=== PATIENT | female | born 1945 | race Caucasian/White ===

== ENCOUNTER → 2020-07-27 10:31 | Outpatient (BNVA) | payer MEDICARE, BC, SELFPAY | PROVIDERS: PCP Family Medicine; Visit Provider Internal Medicine Cardiovascular Disease | DX: I50.9 Heart failure, unspecified (principal); I42.9 Cardiomyopathy, unspecified; I25.10 Atherosclerotic heart disease of native coronary artery without angina pectoris; I77.1 Stricture of artery; Z95.810 Presence of automatic (implantable) cardiac defibrillator | CPT/HCPCS: 93005; 99212 ==

== ENCOUNTER → 2020-10-27 10:31 | Outpatient (BNVA) | payer MEDICARE, BC, SELFPAY | PROVIDERS: PCP Family Medicine; Visit Provider Internal Medicine Cardiovascular Disease | DX: R06.00 Dyspnea, unspecified (principal); I25.10 Atherosclerotic heart disease of native coronary artery without angina pectoris; I50.9 Heart failure, unspecified; Z79.899 Other long term (current) drug therapy | CPT/HCPCS: 99212 ==

== ENCOUNTER → 2021-02-16 12:37 | Outpatient (BNVA) | payer MEDICARE, BC, SELFPAY | PROVIDERS: PCP Family Medicine; Referring Provider Family Medicine; Visit Provider Internal Medicine Cardiovascular Disease | DX: I25.10 Atherosclerotic heart disease of native coronary artery without angina pectoris (principal); R06.00 Dyspnea, unspecified | CPT/HCPCS: 93005; 99212 ==

== ENCOUNTER → 2021-07-03 10:33 | Outpatient (BNVA) | payer MEDICARE, BC, SELFPAY | PROVIDERS: PCP Family Medicine; Referring Provider Family Medicine; Visit Provider Internal Medicine Cardiovascular Disease | DX: R06.00 Dyspnea, unspecified (principal) | CPT/HCPCS: 99212 ==

== ENCOUNTER → 2021-09-27 14:39 | Outpatient (REF) | payer MEDICARE, BC, SELFPAY ==
--- NOTE | 2021-09-27 15:16 | CA_ITS ---
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 The calculated ejection fraction is 59% by biplane method. - There is moderate calcification of the aortic valve. There is mild aortic valve regurgitation. - There is moderate mitral annular calcification. There is mild to moderate mitral valve regurgitation. - Mild pulmonary hypertension is present. Findings Left Ventricle Normal left ventricular cavity size. There is normal left ventricular wall thickness. The left ventricular systolic function is normal. The calculated ejection fraction is 59% by biplane method. There is no evidence of regional wall motion abnormalities. Diastolic function is indeterminate on the basis of available data. Right Ventricle Normal right ventricular cavity size and systolic function. There is a pacemaker wire seen in the right ventricle. Atria Both atria are normal in size. Aortic Valve There is moderate calcification of the aortic valve. There is no aortic valve stenosis. There is mild aortic valve regurgitation. Mitral Valve There is moderate mitral annular calcification. There is mild to moderate mitral valve regurgitation. There is no mitral valve stenosis. Pulmonic Valve The pulmonic valve was not well visualized. Tricuspid Valve There is mild tricuspid valve regurgitation. The right ventricular systolic pressure is 42 mmHg. Mild pulmonary hypertension is present. Great Vessels The asc aorta is normal in size. Venous The inferior vena cava is normal in size and collapses greater than 50% with inspiration. Pericardium/Pleural There is no evidence of pericardial effusion. Prior Study Comparison No prior study available for comparison. Measurements 2D Linear Measurements IVSd: 0.99 0.6-0.9/0.6-1.0 cm LVIDd: 3.55 3.9-5.3/4.2-5.9 cm LVIDd Index: 2.57 2.4-3.2/2.2-3.1 cm/m2 LVIDs: 2.35 2.0-3.6 cm LVPWd: 1.05 0.7-1.1 cm LA Diam: 3.00 2.7-3.8/3.0-4.0 cm LAIDs Index: 2.17 1.5-2.3 cm/m2 LV Mass: 134.84 67-162/88-224 g LV Mass Index: 97.71 43-95/49-115 g/m2 LVOT Diam: 1.80 3.0+(-)1.3 cm 2D Systolic Function EF 4C: 60.20 >55% EF 2C: 60.10 >55% EF BiP: 59.20 >55% Mitral Valve E'Lateral: 5.87 E'Medial: 4.90 MR Vol - PW Dopp: 31.85 MR VTI: 2.45 MR ERO: 13.00 MR Alias Osvaldo: 0.38 MR RAD: 0.60 Aortic Valve AoV Pk Osvaldo: 1.05 AoV Mn Osvaldo: 0.72 AoV VTI: 0.22 AoV Pk Grad: 4.00 Aov Mn Grad: 2.00 CLINT Cont.VTI: 2.64 AI Pk Osvaldo: 3.98 AI [place]: 5.67 LVOT LVOT Pk Osvaldo: 1.00 LVOT Mn Osvaldo: 0.62 LVOT VTI: 0.23 LVOT Pk Grad: 4.00 LVOT Mn Grad: 2.00 LVOT Diam: 1.80 LVOT Area: 2.54 Diastolic Function E'Medial: 4.90 E' Laterial: 5.87 Right Ventricle TAPSE (mm): 18.60 Tricuspid Valve TR Pk Osvaldo: 3.11 TR Pk Grad: 39.00 RA Press: 3.00 RVSP: 42.00 Great Vessels Aorta Sinus of Valsalva: 3.10 2.0-3.[address] [place]: 2.48 1.7-3.4 cm Ao Asc: 3.40 2.1-3.4 cm Updated in Other Vendor System with Status of Final Terry Mcclain MD electronically signed on 09/29/2021 11:18:34 AM with status of Final
== END ==
LOC: HO.CARD 14:39
PROVIDERS: PCP Family Medicine; Visit Provider Family Medicine
DX: R06.09 Other forms of dyspnea (principal)
CPT/HCPCS: 93306

== ENCOUNTER → 2022-01-19 12:51 | Outpatient (BNVA) | payer MEDICARE, BC, SELFPAY | PROVIDERS: PCP Family Medicine; Referring Provider Family Medicine; Visit Provider Nurse Practitioner Family | DX: Z45.02 Encounter for adjustment and management of automatic implantable cardiac defibrillator (principal); I25.10 Atherosclerotic heart disease of native coronary artery without angina pectoris; I42.9 Cardiomyopathy, unspecified; I50.9 Heart failure, unspecified; I77.1 Stricture of artery | CPT/HCPCS: 93005; 99212 ==

== ENCOUNTER 2022-06-21 14:46 | Outpatient (REF) | payer MEDICARE, BC, SELFPAY ==
--- NOTE | ~2022-06-21 | XR_ITS ---
EXAMINATION: XR CHEST CLINICAL INFORMATION: R06.00 - Dyspnea, unspecified COMPARISON: None TECHNIQUE: Frontal view of the chest was obtained. FINDINGS: There is hyperinflation/COPD. The heart is normal in size. The vascularity is normal and there is no airspace consolidation or effusion. There is bipolar AICD and 2 orphaned epicardial leads. There is dystrophic calcification or artifact just inferior to mid right clavicle. The hilar and mediastinal contours are unremarkable. There are multilevel degenerative changes thoracic and lumbar spine. XR/XR chest 1V IMPRESSION: 1. Hyperinflation/COPD. 2. No acute intrathoracic disease.
[2022-06-21 15:16] LABS: MANUAL DIFF FLAG NO
[2022-06-21 16:22] LABS: Basophils Absolute Auto 0.1 X10*3/uL (0.0-0.2); Basophils Percent Auto 0.8 % (0-2); Eosinophils Absolute Auto 0.3 X10*3/uL (0.0-0.4); Eosinophils Percent Auto 3.1 % (0-4); Hematocrit 42.7 % (37.0-47.0); Hemoglobin 14.9 g/dl (12.0-16.0); Imm Gran Abs Auto 0.03 X10*3/uL (0.00-0.03); Imm Gran Pct Auto 0.3 % (0.0-0.4); Lymphocytes Absolute Auto 2.5 X10*3/uL (1.2-4.9); Lymphocytes Percent Auto 27.5 % (20-40); Mean Corpuscular HGB Conc 34.9 g/dl (31.0-35.0); Mean Corpuscular Hemoglobin 33.3 pg (27.0-33.0); Mean Corpuscular Volume 95.5 fL (80.0-98.0); Mean Platelet Volume 9.9 fL (9.4-12.3); Monocytes Absolute Auto 0.7 X10*3/uL (0.1-1.2); Monocytes Percent Auto 8.3 % (2-11); Neutrophils Absolute Auto 5.4 x10*3/uL (2.0-8.3); Platelet Count 311 X10*3/uL (160-400); Red Blood Count 4.47 X10*6/uL (4.20-5.50)
[2022-06-21 16:42] LABS: Anion Gap 13 (12-20); Blood Urea Nitrogen 17 mg/dL (9-16); Calcium 10.5 mg/dL (8.4-10.2); Carbon Dioxide 33 mmol/L (22-29); Chloride 98 mmol/L (96-108); Estimated Glomerular Filt Rate > 60; Glucose Random 89 mg/dL (60-115); Potassium 4.8 mmol/L (3.3-5.1); Sodium 139 mmol/L (135-145)
[2022-06-21 16:50] LABS: B Type Natriuretic Peptide 338 pg/mL (<100)
== END 2022-06-21 14:47 | disposition home or self-care (01) ==
LOC: HO.LAB 14:46
PROVIDERS: Visit Provider Nurse Practitioner Family
DX: R06.00 Dyspnea, unspecified (principal); R60.9 Edema, unspecified; I25.10 Atherosclerotic heart disease of native coronary artery without angina pectoris; I42.9 Cardiomyopathy, unspecified; I77.1 Stricture of artery; Z95.810 Presence of automatic (implantable) cardiac defibrillator
CPT/HCPCS: 36415; 71045; 80048; 83880; 85025; 99212

== ENCOUNTER → 2022-07-25 14:32 | Outpatient (BNVA) | payer MEDICARE, BC, SELFPAY | PROVIDERS: PCP Family Medicine; Visit Provider Internal Medicine Cardiovascular Disease | DX: R06.00 Dyspnea, unspecified (principal); I10 Essential (primary) hypertension | CPT/HCPCS: 99212 ==

== ENCOUNTER 2022-08-20 10:36 | Outpatient (REF) | payer MEDICARE, BC, SELFPAY ==
[2022-08-20 12:32] LABS: Anion Gap 16 (12-20); Blood Urea Nitrogen 13 mg/dL (9-16); Calcium 10.5 mg/dL (8.4-10.2); Carbon Dioxide 29 mmol/L (22-29); Chloride 97 mmol/L (96-108); Estimated Glomerular Filt Rate > 60; Glucose Random 92 mg/dL (60-115); Magnesium 1.7 mg/dL (1.6-2.6); Potassium 4.8 mmol/L (3.3-5.1); Sodium 137 mmol/L (135-145)
== END 2022-08-20 10:37 | disposition home or self-care (01) ==
LOC: HO.LAB 10:36
PROVIDERS: PCP Family Medicine; Referring Provider Family Medicine; Visit Provider Internal Medicine Cardiovascular Disease
DX: I49.3 Ventricular premature depolarization (principal)
CPT/HCPCS: 36415; 80048; 83735; 93005; 99212

== ENCOUNTER → 2022-12-24 12:57 | Outpatient (BNVA) | payer MEDICARE, BC, SELFPAY | PROVIDERS: PCP Family Medicine; Referring Provider Family Medicine; Visit Provider Internal Medicine Cardiovascular Disease | DX: I10 Essential (primary) hypertension (principal); R06.00 Dyspnea, unspecified; I42.8 Other cardiomyopathies; Z87.891 Personal history of nicotine dependence | CPT/HCPCS: 99212 ==

== ENCOUNTER 2023-01-24 06:10 | Day surgery (SDC) | payer MEDICARE, BC, SELFPAY ==
[2023-01-22 10:20] VITALS: BMI 14.6
[2023-01-24] MEDS: Albuterol Sulfate (0.083%) 2.5 MG/3 ML VIAL.NEB INHALE (06:35)
[2023-01-24 06:41] VITALS: BP 158/89; PULSE 88; RESP 18; TEMP 36.7; O2SAT 95
[2023-01-24] MEDS: Lactated Ringers 1,000 ML 50 ML IVCONT (06:51)
--- NOTE | 2023-01-24 07:12 | P.CONAN_ITS ---
HPI - Anesthesia Eval Consult details Narrative: 77 yo F presenting for AICD generator change. Uses supplmental oxygen at night. Received inhalers this morning in pre-op. [facility] Active Problems Active Problems: All Active Problems (Updated 01/21/23 @ 15:41 by Luz Elena Cabral PA-C) Cardiomyopathy (Acute) CHF (congestive heart failure) (Acute) CAD (coronary artery disease) (Acute) PVC (premature ventricular contraction) (Acute) Essential hypertension (Acute) ICD (implantable cardioverter-defibrillator) in place (Acute) Stenosis of left subclavian artery (Acute) Edema (Acute) Dyspnea on exertion (Acute) Personal history of nicotine dependence (Acute) Past Medical History Medical History CAD (coronary artery disease) Cardiomyopathy CHF (congestive heart failure) Essential hypertension Hyperlipidemia Hypothyroidism ICD (implantable cardioverter-defibrillator) in place Personal history of nicotine dependence PVC (premature ventricular contraction) Family History Family History Father CVD (cardiovascular disease) Obesity Mother CVD (cardiovascular disease) Diabetes Surgical History Surgical History History of appendectomy History of carotid endarterectomy History of heart artery stent History of hernia repair History of implantable cardiac defibrillator (ICD) History of pubovaginal sling History of tonsillectomy History of Problems with Anesthesia: No Social History Social History Alcohol intake: current Alcohol intake frequency: 0-2 drinks per day Alcohol type: wine Patient Tobacco Use Status: Former Tobacco user Quit Date: 2014 Tobacco use type: Cigarette Years Smoked: 50 +/- Use of substances other than those prescribed or required for medical reasons: No Are you DNR?: No Advance Directives: No Advance Directives Information Provided: Yes Advance Directives on File: No Meds Allergies Allergy/AdvReac Type Severity Reaction Status Date / Time No Known Allergies Allergy Verified 12/24/22 13:09 Active Medications: Current Medications Albuterol Sulfate (Albuterol Sulfate (0.083%) 2.5 Mg/3 Ml Vial.Neb) 2.5 mg INHALE ONCE PRN PRN Reason: Shortness of Breath/Wheezing Last Admin: 01/24/23 06:35 Dose: 2.5 mg Lactated Ringer's (Lr) 1,000 mls @ 50 mls/hr IVCONT .Q20H DIONNE Last Admin: 01/24/23 06:51 Dose: 50 mls/hr Home Medications Medication Instructions Recorded Confirmed Last Taken Type aspirin 81 mg tablet,delayed 81 mg PO DAILY 07/27/20 01/24/23 01/23/23 History release (Adult Low Dose Aspirin) calcium carbonate 600 mg calcium 600 mg PO DAILY 07/27/20 01/24/23 01/23/23 History (1,500 mg) tablet (Calcium) carvedilol 6.25 mg tablet 6.25 mg PO BID 07/27/20 01/24/23 01/24/23 History fluticasone propionate 50 1 spray intranasal DAILY 07/27/20 01/24/23 01/23/23 History mcg/actuation nasal spray,suspension furosemide 20 mg tablet 20 mg PO DAILY 07/27/20 01/24/23 01/23/23 History losartan 50 mg tablet 50 mg PO DAILY 07/27/20 01/24/23 01/23/23 History multivitamin 1 tab PO DAILY 07/27/20 01/24/23 01/23/23 History tiotropium 2.5 mcg-olodaterol 2.5 2 puff inhalation DAILY 02/16/21 01/24/23 01/24/23 History mcg/actuation mist for inhalation (Stiolto Respimat) atorvastatin 40 mg tablet 40 mg PO DAILY 01/19/22 01/24/23 01/23/23 History albuterol sulfate 2.5 mg/3 mL 2.5 mg inhalation Q4-6H PRN 07/25/22 01/24/23 01/23/23 History (0.083 %) solution for nebulization Shortness Of Breath albuterol sulfate 90 mcg/actuation 1 puff inhalation Q4H PRN 08/20/22 01/24/23 01/23/23 History aerosol inhaler Shortness Of Breath levothyroxine 100 mcg tablet 100 mcg PO DAILY 12/24/22 01/24/23 01/24/23 History Exam Exam Date and Time: January 24, [id number] Height,Weight and Vital Signs: Height 5 ft 3 in Weight 37.4 kg Last Vital Signs Temp 98.1 F 01/24/23 06:41 Pulse 88 01/24/23 06:41 Resp 18 01/24/23 06:41 BP 158/89 H 01/24/23 06:41 Pulse Ox 95 01/24/23 06:41 O2 Del Method Room Air 01/24/23 06:41 Airway Mallampati Class: I TM Dist: >3cm Neck ROM: Full Loose/Missing/Broken Teeth: No Heart: S1S2 Lungs: CTAB Assessment and Plan Assessment Anesthesia Assessment: Anesthesia Plan Discussed and Chart Reviewed Final Anesthetic Review History of Problems with Anesthesia: No NPO: Yes ASA Class: III Final Preanesthetic Review: No Changes in Pt Med Stat, Meds/Allgs Chart Reviewed, Consent Obtained/Reviewed and Anes Risks/Benef Reviewed Patient Risk: High Procedure Risk: Intermediate Anesthetic Plan Anesthetic Plan: MAC: and Agree w/ Assess. and Plan Disposition: Standard PACU
--- NOTE | 2023-01-24 07:24 | MHC.SHP ---
Pre-Procedural Eval Section A Date of Service: 01/24/23 The patient is an INPATIENT: No Section B Chief Complaint: Ventricular premature depolarization Allergies: Allergies Allergy/AdvReac Type Severity Reaction Status Date / Time No Known Allergies Allergy Verified 12/24/22 13:09 Plan I have reviewed the history and physical and performed a pertinent physical examination on my patient. No changes have occurred unless specified. Time Spent With Patient Time: Total time managing care of this patient today ____ minutes.
--- NOTE | 2023-01-24 08:35 | P.OP_ITS ---
Operative Note Operative Note Date of Service: 01/24/23 Narrative: Preoperative diagnosis: Pacemaker/ to fibrillator end of life Postoperative diagnosis: Same Operation: Three-chamber pacemaker /defibrillator generator change Surgeon: Felton Alva MD Anesthesia: Local with sedation Specimens: None EBL: Minimal Operative findings: The generator were removed was a Medtronic with serial number [id number]. Pacemaker lead parameters were in the atrial lead threshold 0.75 volts at 0.4 milliseconds with an impedance of 361 Ohms and a P- wave of 4.5 mV. In the rightventricular lead threshold 0.75 volts at 0.4 milliseconds with an impedance of 437 Ohms and an R-wave of 14.6 mV. epicardial left ventricular lead threshold 1.25 volts at 0.4 milliseconds with an impedance of 285 Ohms. This is an epicardial lead. Patient tolerated the procedure well. Operation in detail: The patient was brought the operating room, placed supine on the operative table, anesthesia monitoring devices were placed, and the patient was gently sedated. The left infraclavicular area was then prepped and draped in a standard sterile fashion and a time-out was performed confirming the correct patient, site, and procedure. After injection of local anesthetic, a 3 cm incision was made directly over the old pacemaker generator which was palpable. This was carried down with combination of sharp dissection and minimal electrocautery to open up the capsule at the generator was within. The generator was were then removed from its pocket and the leads were taken out of the receptacles and placed directly into the new generator. These leads were then tested and were working appr opriately. The pocket was then copiously irrigated with antibiotic solution and the excess wire and generator were then placed back into the pocket. The wound was then closed with a deep running 3-0 Vicryl suture followed by running 3-0 Vicryl suture and Dermabond glue on the skin. Patient tolerated the procedure well. Patient was then awoken from anesthesia and brought to the recovery room in stable condition.
[2023-01-24 08:40] VITALS: BP 125/51; PULSE 73; RESP 20; TEMP 36.2; O2SAT 100
[2023-01-24 08:55] VITALS: BP 173/73; PULSE 79; RESP 18; O2SAT 94
[2023-01-24 09:10] VITALS: BP 173/74; PULSE 76; RESP 18; TEMP 36.1; O2SAT 94
== END 2023-01-24 09:48 | disposition home or self-care (01) ==
PROVIDERS: PCP Family Medicine; Visit Provider Surgery
PROC: (CPT 33264; principal; 2023-01-24 07:30)
DX: Z45.02 Encounter for adjustment and management of automatic implantable cardiac defibrillator (principal); I49.3 Ventricular premature depolarization; I42.9 Cardiomyopathy, unspecified; I50.9 Heart failure, unspecified; I11.0 Hypertensive heart disease with heart failure; R06.00 Dyspnea, unspecified; I25.10 Atherosclerotic heart disease of native coronary artery without angina pectoris; Z95.5 Presence of coronary angioplasty implant and graft; E78.5 Hyperlipidemia, unspecified; Z99.81 Dependence on supplemental oxygen; Z79.51 Long term (current) use of inhaled steroids; Z79.82 Long term (current) use of aspirin; Z79.899 Other long term (current) drug therapy; Z87.891 Personal history of nicotine dependence
CPT/HCPCS: 33264; C1882; J0690; J2370; J2371; J3010; J3370

== ENCOUNTER 2023-02-15 08:47 | Outpatient (AMB) | payer MEDICARE, BC, SELFPAY ==
--- NOTE | 2023-02-15 09:15 | A.OFFVIS_ITS ---
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: No Allergies No Known Allergies Allergy (Verified 02/15/23 09:19) Medication List - Last Reconciled 02/15/23 by Felton Alva MD albuterol sulfate 2.5 mg inhalation Q4-6H PRN albuterol sulfate 90 mcg/actuation 1 puff inhalation Q4H PRN aspirin (Adult Low Dose Aspirin) 81 mg PO DAILY atorvastatin 40 mg PO DAILY calcium carbonate (Calcium) 600 mg PO DAILY carvedilol 6.25 mg PO BID fluticasone propionate 50 mcg/actuation 1 spray intranasal DAILY furosemide 20 mg PO DAILY isosorbide mononitrate ER 30 mg PO DAILY levothyroxine 100 mcg PO DAILY losartan 50 mg PO DAILY multivitamin 1 tab PO DAILY tiotropium-olodaterol 2.5-2.5 mcg/actuation (Stiolto Respimat) 2 puffs inhalation DAILY HPI Generator change HPI Details 77-year-old woman who had a pacemaker defibrillator generator change done on 01/24/2023. She did notice some drainage from the wound about a week ago and saw 1 of my PAs at the [facility] office started a course of antibiotics for some mild erythema around it and some mild drainage. Steri-Strips were placed at that time. She is quite thin and the generator is large as it is a defibrillator as well. Since starting antibiotics and seeing my PA with the Steri-Strips there has been minimal to no drainage from the wound. She denies fevers chills or worsening pain. [facility] Medical History CAD (coronary artery disease) Cardiomyopathy CHF (congestive heart failure) Essential hypertension Hyperlipidemia Hypothyroidism ICD (implantable cardioverter-defibrillator) in place (~2016) Personal history of nicotine dependence PVC (premature ventricular contraction) Surgical History History of appendectomy History of carotid endarterectomy History of heart artery stent History of hernia repair History of implantable cardiac defibrillator (ICD) History of pubovaginal sling History of tonsillectomy Family History Father CVD (cardiovascular disease) Obesity Mother CVD (cardiovascular disease) Diabetes Social History Alcohol intake: current Alcohol intake frequency: 0-2 drinks per day Alcohol type: wine Patient Tobacco Use Status: Former Tobacco user Quit Date: 2014 Tobacco use type: Cigarette Years Smoked: 50 +/- Physical Exam Vital Signs: Last Vital Signs Pulse 90 02/15/23 09:16 BP 162/72 H 02/15/23 09:16 Pulse Ox 93 02/15/23 09:16 Oxygen Delivery Method Room Air 02/15/23 09:16 BMI result Body Mass Index 14.5 Wound currently is clean dry and intact. Steri-Strips are in place in the middle portion of the wound. There is minimal if any erythema around the wound. There is no drainage. There still appears to be some swelling and some bruising around it and due to her slight body habitus this does appear quite easily underneath the scan. 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 No signs of infection and may be a small hematoma but nothing of current concern. Because she is so thin I do want to keep a close eye on this wound so I will plan on seeing her back in the office in 2 weeks. Coding Level of Care Code Global (23143) Diagnoses ICD (implantable cardioverter-defibrillator) in place Z95.810
[2023-02-15 09:16] VITALS: BP 162/72; PULSE 90; O2SAT 93; BMI 14.5
== END 2023-02-15 09:31 | disposition home or self-care (01) ==
PROVIDERS: PCP Family Medicine; Visit Provider Surgery
DX: Z95.810 Presence of automatic (implantable) cardiac defibrillator (principal)
CPT/HCPCS: 99024

== ENCOUNTER → 2023-02-15 08:47 | Outpatient (BNVA) | payer MEDICARE, BC, SELFPAY | PROVIDERS: PCP Family Medicine; Visit Provider Surgery | DX: Z95.810 Presence of automatic (implantable) cardiac defibrillator (principal) ==

== ENCOUNTER 2023-03-04 06:16 | Outpatient (REF) | payer MEDICARE, BC, SELFPAY ==
[2023-03-04 05:55] LABS: MANUAL DIFF FLAG NO
[2023-03-04 06:53] LABS: Anion Gap 13 (12-20); Blood Urea Nitrogen 11 mg/dL (9-16); Calcium 10.1 mg/dL (8.4-10.2); Carbon Dioxide 28 mmol/L (22-29); Chloride 99 mmol/L (96-108); Estimated Glomerular Filt Rate > 60; Glucose Random 76 mg/dL (60-115); Potassium 3.8 mmol/L (3.3-5.1); Sodium 136 mmol/L (135-145)
[2023-03-04 07:12] LABS: Basophils Percent Auto 0.6 % (0-2); Eosinophils Absolute Auto 0.8 X10*3/uL (0.0-0.4); Eosinophils Percent Auto 11.8 % (0-4); Hematocrit 29.9 % (37.0-47.0); Hemoglobin 10.7 g/dl (12.0-16.0); Imm Gran Abs Auto 0.02 X10*3/uL (0.00-0.03); Imm Gran Pct Auto 0.3 % (0.0-0.4); Lymphocytes Absolute Auto 1.7 X10*3/uL (1.2-4.9); Mean Corpuscular HGB Conc 35.8 g/dl (31.0-35.0); Mean Corpuscular Hemoglobin 35.1 pg (27.0-33.0); Mean Platelet Volume 9.2 fL (9.4-12.3); Monocytes Absolute Auto 0.6 X10*3/uL (0.1-1.2); Monocytes Percent Auto 8.7 % (2-11); Neutrophils Absolute Auto 3.6 x10*3/uL (2.0-8.3); Neutrophils Percent Auto 53.6 % (45-73); Platelet Count 314 X10*3/uL (160-400); Red Blood Count 3.05 X10*6/uL (4.20-5.50); Red Cell Distribution Width 12.1 % (11.0-16.0); White Blood Count 6.8 X10*3/uL (4.8-10.8)
== END 2023-03-04 06:17 | disposition home or self-care (01) ==
LOC: HO.MMNH2L 06:16
PROVIDERS: Visit Provider Family Medicine
DX: I10 Essential (primary) hypertension (principal); T82.7XXA Infection and inflammatory reaction due to other cardiac and vascular devices, implants and grafts, initial encounter
CPT/HCPCS: 36415; 80048; 85025; 99212

== ENCOUNTER 2023-03-04 11:35 | Outpatient (AMB) | payer MEDICARE, BC, SELFPAY ==
[2023-03-04 11:37] VITALS: BP 142/72; PULSE 93; O2SAT 96
--- NOTE | 2023-03-04 11:37 | MHC.OFFVIS ---
Intake Vital Signs 03/04/23 11:37 Height 5 ft 3 in BMI Reason not done Patient refused/unable BP 142/72 H Blood Pressure Location Lt brachial Position Sitting Pulse 93 Pulse Source Pulse Oximeter Pulse Oximetry (%) 96 Oxygen Delivery Method Room Air Intake Visit Reasons: 2 month follow up Intake Note: 2 month follow up. 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 Accompanied by: Self / Same As Patient Allergies No Known Allergies Allergy (Verified 03/04/23 11:41) Medication List - Last Reconciled 03/04/23 by Horace Mata MD albuterol sulfate 2.5 mg inhalation Q4-6H PRN albuterol sulfate 90 mcg/actuation 1 puff inhalation Q4H PRN aspirin (Adult Low Dose Aspirin) 81 mg PO DAILY atorvastatin 40 mg PO DAILY calcium carbonate (Calcium) 600 mg PO DAILY carvedilol 6.25 mg PO BID cyanocobalamin (vitamin B-12) 1,000 mcg PO DAILY doxycycline hyclate 100 mg PO BID fluticasone propionate 50 mcg/actuation 1 spray intranasal DAILY furosemide 20 mg PO DAILY heparin (porcine) 5,000 units subcut Q12H isosorbide mononitrate ER 30 mg PO DAILY levothyroxine (Levoxyl) 50 mcg PO DAILY losartan 50 mg PO DAILY multivitamin 1 tab PO DAILY multivitamin 1 tab PO DAILY tiotropium-olodaterol 2.5-2.5 mcg/actuation (Stiolto Respimat) 2 puffs inhalation DAILY vancomycin 750 mg IV ONCE HPI HPI Comments History of Present Illness Details 77-year-old pleasant female here for follow-up. 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 She was seen for perioperative risk assessment. She underwent surgery for uterine prolapse under local anesthesia/spinal because she was high risk for general anesthesia. She had an echocardiogram in July 2018 [facility] which showed recovery of her left ventricular ejection fraction which was normal. She recently was found to have a unequal blood pressures in both arms with a 40 mm difference between the left and right arms. She underwent CTA at [facility] which showed 90% stenosis at the origin of left subclavian artery. She has some vertigo at baseline. No clear subclavian steal symptoms. She is here for follow-up. She has shortness of breath which is worse than before. 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 Her blood pressure in the office is elevated. As mentioned above she has left subclavian stenosis and blood pressure in that arm is unreliable. Right arm blood pressures are elevated and we discussed about starting isosorbide in addition to her medications that she is taking. No orthopnea or PND. No significant edema. She is using her inhalers. We decided to add isosorbide mononitrate 30 mg once a day to her regimen. She is returning for follow-up after that. She is saying that her dyspnea is improved. Her blood pressure also appears to be better. Her EKG interestingly showing PVCs. She has no symptoms and is completely asymptomatic and has no palpitations. I advised her to increase the carvedilol but she said previously when she increase the carvedilol she could not sleep at night. She is undergoing a lot of stress because her has multiple myeloma and has not been doing well. Recent device interrogation has shown that her battery life is close to 3 months now and she is seeing thoracic surgery to have a generator changed. She was started on magnesium for hypomagnesemia but had significant diarrhea and she has stopped using magnesium at this point. She has no chest pain or significant shortness of breath. Her is undergoing chemotherapy for multiple myeloma. He has significant memory problems and she is quite involved in and stressed by his care. 03/04/2023: Returns for follow-up. She was referred to thoracic surgery and underwent generator change for Bi V AICD. She had operative side issues and unfortunately had skin breakdown with exposure of the underlying device. This was because of her being really underweight. She went to [facility] and was subsequently transferred to [facility] where after discussion with electrophysiology and cardiothoracic surgery device was explanted. Because she had epicardial leads placed for Bi V AICD in the past, it was decided to start her on doxycycline long-term by Infectious Disease. She is currently in a rehab facility. Only complaint she has is that she gets significant pain at site at the time did dressings are changed and the wound is cleaned out. She has wound VAC in place. [facility] Medical History CAD (coronary artery disease) Cardiomyopathy CHF (congestive heart failure) Essential hypertension Hyperlipidemia Hypothyroidism ICD (implantable cardioverter-defibrillator) in place (~2017) Personal history of nicotine dependence PVC (premature ventricular contraction) Surgical History History of appendectomy History of carotid endarterectomy History of heart artery stent History of hernia repair History of implantable cardiac defibrillator (ICD) History of pubovaginal sling History of tonsillectomy Family History Father CVD (cardiovascular disease) Obesity Mother CVD (cardiovascular disease) Diabetes Social History Alcohol intake: current Alcohol intake frequency: 0-2 drinks per day Alcohol type: wine Patient Tobacco Use Status: Former Tobacco user Quit Date: 2014 Tobacco use type: Cigarette Years Smoked: 50 +/- Review of Systems Const Denies weakness ENT Denies dizziness Card Denies chest pain, Denies chest pain with activity, Denies syncope, Denies rapid heart rate, Denies pedal edema, Denies edema, Denies leg edema, Denies lightheadedness, Denies palpitations, Denies dyspnea, Denies dyspnea on exertion and Denies orthopnea Resp Denies cough, Denies dyspnea and Denies dyspnea on exertion GI Denies hematochezia and Denies change in stool character Musc Denies abnormal gait, Denies muscle cramps, Denies muscle weakness, Denies numbness, Denies radiating pain into limb and Denies tingling Neuro Denies abnormal gait, Denies dizziness, Denies syncope, Denies numbness, Denies tingling and Denies weakness Endo Denies palpitations Physical Exam Vital Signs: Last Vital Signs Pulse 93 03/04/23 11:37 BP 142/72 H 03/04/23 11:37 Pulse Ox 96 03/04/23 11:37 Oxygen Delivery Method Room Air 03/04/23 11:37 GENERAL APPEARANCE: Thin, frail lady. NECK/THYROID: no carotid bruit, no jugular venous distention. SKIN: Left chest wall wound VAC in place. HEART: no murmurs, regular rate and rhythm, S1, S2 normal. LUNGS: clear to auscultation bilaterally. ABDOMEN: normal, bowel sounds present, soft, nontender, nondistended. EXTREMITIES: no edema. PERIPHERAL PULSES: equal. NEUROLOGIC: nonfocal, , alert and oriented. Assessment & Plan Assessment & Plan (1) Essential hypertension: Code(s): I10 - Essential (primary) hypertension (2) Pacemaker infection: Code(s): T82.7XXA - Infection and inflammatory reaction due to other cardiac and vascular devices, implants and grafts, initial encounter Plan 77-year-old female who is here for follow-up. She previously had nonischemic cardiomyopathy which improved with by V pacing. She had epicardial electrodes placed by Cardiothoracic surgery because she did not have successful coronary sinus lead placement. Recently noticed to have low battery and was referred for generator change to thoracic surgery. She unfortunately had a complex clinical course because of poor wound healing due to being significantly underweight. The device was exposed and there was concern for infection and she was transfer eventually to [facility] from [facility] and underwent explant of the device. The epicardial leads are still in place as removing them required thoracotomy which will be a very big surgery for her and recovery with her lung disease and significant underweight status would be quite challenging. She has been started on doxycycline for chronic suppression. Will monitor closely as the wound heals. She will need echocardiography to reassess ejection fraction the coming months. Hopefully she does not develop cardiomyopathy again. Her main complaint is pain at the side with dressing changes. Please consider giving her pain medications stronger than Tylenol before the wound VAC is removed for dressing changes every 2-3 days. Thank you for allowing me to participate in the care of your patient. Please feel free to contact me if you have any questions. Coding Level of Care Code Est Pt Level 4 (11458) Diagnoses Essential hypertension I10 Pacemaker infection T82.7XXA
== END 2023-03-04 12:39 | disposition home or self-care (01) ==
PROVIDERS: PCP Family Medicine; Referring Provider Family Medicine; Visit Provider Internal Medicine Cardiovascular Disease
DX: I10 Essential (primary) hypertension (principal); T82.7XXA Infection and inflammatory reaction due to other cardiac and vascular devices, implants and grafts, initial encounter
CPT/HCPCS: 99214

== ENCOUNTER 2023-06-19 10:53 | Outpatient (AMB) | payer MEDICARE, BC, SELFPAY ==
[2023-06-19 11:02] VITALS: BP 140/72; PULSE 94; BMI 14.4
--- NOTE | 2023-06-19 11:02 | A.OFFVIS_ITS ---
Intake Vital Signs 06/19/23 11:02 Height 5 ft 3 in Weight 81 lb 9.137 oz BMI 14.4 BP 140/72 H Blood Pressure Location Rt brachial Position Sitting Pulse 94 Pulse Source Pulse Oximeter Intake Visit Reasons: 4 mth f/up Intake Note: 4 mth f/up patient haves shortness of breath all the time. 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 Accompanied by: Sister Allergies No Known Allergies Allergy (Verified 06/19/23 11:09) Medication List - Last Reconciled 06/19/23 by Horace Mata MD albuterol sulfate 2.5 mg inhalation Q4-6H PRN albuterol sulfate 90 mcg/actuation 1 puff inhalation Q4H PRN aspirin (Adult Low Dose Aspirin) 81 mg PO DAILY atorvastatin 40 mg PO DAILY calcium carbonate (Calcium) 600 mg PO DAILY carvedilol 6.25 mg PO BID cyanocobalamin (vitamin B-12) 1,000 mcg PO DAILY doxycycline hyclate 100 mg PO BID fluticasone propionate 50 mcg/actuation 1 spray intranasal DAILY furosemide 20 mg PO DAILY isosorbide mononitrate ER 30 mg PO DAILY levothyroxine (Levoxyl) 50 mcg PO DAILY losartan 50 mg PO DAILY multivitamin 1 tab PO DAILY multivitamin 1 tab PO DAILY tiotropium-olodaterol 2.5-2.5 mcg/actuation (Stiolto Respimat) 2 puffs inhalation DAILY HPI HPI Comments History of Present Illness Details 78-year-old pleasant female here for [facility]-up. She has background of cardiomyopathy which was thought to be mixed ischemic and nonischemic cardiom yopathy to left bundle-branch block. 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 She was seen for perioperative risk assessment. She underwent surgery for uterine prolapse under local anesthesia/spinal because she was high risk for general anesthesia. She had an echocardiogram in July 2018 [facility] which showed recovery of her left ventricular ejection fraction which was normal. She recently was found to have a unequal blood pressures in both arms with a 40 mm difference between the left and right arms. She underwent CTA at [facility] which showed 90% stenosis at the origin of left subclavian artery. She has some vertigo at baseline. No clear subclavian steal symptoms. She is here for follow-up. She has shortness of breath which is worse than before. 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 Her blood pressure in the office is elevated. As mentioned above she has left subclavian stenosis and blood pressure in that arm is unreliable. Right arm blood pressures are elevated and we discussed about starting isosorbide in addition to her medications that she is taking. No orthopnea or PND. No significant edema. She is using her inhalers. We decided to add isosorbide mononitrate 30 mg once a day to her regimen. She is returning for follow-up after that. She is saying that her dyspnea is improved. Her blood pressure also appears to be better. Her EKG interestingly showing PVCs. She has no symptoms and is completely asymptomatic and has no palpitations. I advised her to increase the carvedilol but she said previously when she increase the carvedilol she could not sleep at night. She is undergoing a lot of stress because her has multiple myeloma and has not been doing well. Recent device interrogation has shown that her battery life is close to 3 months now and she is seeing thoracic surgery to have a generator changed. She was started on magnesium for hypomagnesemia but had significant diarrhea and she has stopped using magnesium at this point. She has no chest pain or significant shortness of breath. Her is undergoing chemotherapy for multiple myeloma. He has significant memory problems and she is quite involved in and stressed by his care. 03/04/2023: Returns for follow-up. She was referred to thoracic surgery and underwent generator change for Bi V AICD. She had operative side issues and unfortunately had skin breakdown with exposure of the underlying device. This was because of her being really underweight. She went to [facility] and was subsequently transferred to [facility] where after discussion with electrophysiology and cardiothoracic surgery device was explanted. Because she had epicardial leads placed for Bi V AICD in the past, it was decided to start her on doxycycline long-term by Infectious Disease. She is currently in a rehab facility. Only complaint she has is that she gets significant pain at site at the time did dressings are changed and the wound is cleaned out. She has wound VAC in place. 06/19/2023: She returns for follow-up. H er wound over the left chest wall has healed. She is complaining of significant dyspnea with activity. She is saying she is unable to do any significant activity inside the house. She has 12 stairs to go down to the sellar and she has to take her time in going up and is huffing and puffing when she reaches to talk. She had quite complex issue after the Bi V ICD generator was changed which eroded through the skin and eventually was removed. She had wound VAC in place and was not mobile. Previously she had not done well then she stopped exercising or doing any activities and had more dyspnea and fatigue. She is complaining of very mild edema at the right ankle only. She is saying that her weight has been stable and she has not gained any weight. She is thin and quite underweight at baseline. [facility] Medical History CAD (coronary artery disease) Cardiomyopathy CHF (congestive heart failure) Essential hypertension Hyperlipidemia Hypothyroidism ICD (implantable cardioverter-defibrillator) in place (~2017) Personal history of nicotine dependence PVC (premature ventricular contraction) Surgical History History of pubovaginal sling History of carotid endarterectomy History of implantable cardiac defibrillator (ICD) History of hernia repair History of appendectomy History of tonsillectomy History of heart artery stent Family History Father CVD (cardiovascular disease) Obesity Mother CVD (cardiovascular disease) Diabetes Social History Alcohol intake: current Alcohol intake frequency: 0-2 drinks per day Alcohol type: wine Patient Tobacco Use Status: Former Tobacco user Quit Date: 2014 Tobacco use type: Cigarette Years Smoked: 50 +/- Review of Systems Const Reports chills, Reports fatigue, Reports fever(s), Reports frequent falls, Reports weakness, Reports weight gain and Reports weight loss ENT Reports dizziness Card Reports chest pain, Reports leg edema, Reports lightheadedness, Reports palpitations, Reports dyspnea and Reports dyspnea on exertion Resp Reports cough, Reports dyspnea and Reports dyspnea on exertion GI Reports hematochezia Musc Reports abnormal gait, Reports muscle weakness, Reports numbness, Reports radiating pain into limb and Reports tingling Neuro Reports abnormal gait, Reports dizziness, Reports frequent falls, Reports numbness, Reports tingling and Reports weakness Endo Reports fatigue and Reports palpitations Physical Exam Vital Signs: Last Vital Signs Pulse 94 06/19/23 11:02 BP 140/72 H 06/19/23 11:02 BMI result Body Mass Index 14.4 GENERAL APPEARANCE: Thin, frail lady. NECK/THYROID: no carotid bruit, no jugular venous distention. SKIN: Left chest wall wound VAC in place. HEART: no murmurs, regular rate and rhythm, S1, S2 normal. LUNGS: clear to auscultation bilaterally. ABDOMEN: normal, bowel sounds present, soft, nontender, nondistended. EXTREMITIES: Mild edema right ankle only. PERIPHERAL PULSES: equal. NEUROLOGIC: nonfocal, , alert and oriented. Assessment & Plan Assessment & Plan (1) Essential hypertension: Code(s): I10 - Essential (primary) hypertension (2) Dyspnea on exertion: Code(s): R06.00 - Dyspnea, unspecified (3) Chronic heart failure: Code(s): I50.9 - Heart failure, unspecified Plan Pleasant 78-year-old female who is here for follow-up. She is complaining of dyspnea which is multifactorial and is mostly related to deconditioning in my opinion. Clinically not in heart failure. She has background of COPD also. I have advised her to start exercising regularly and have offered her to consider doing cardiac rehabilitation which she will qualify for the diagnosis stable angina. 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 The device has been explanted at this stage. We will repeat echocardiography to see if ejection fraction is worsening. If in fact the EF is dropping then she needs discussion with EP for bundle-branch pacing which will be a smaller device then Bi V device and may be the wound will heal. I will do CBC and BMP today to rule out any anemia and make sure that her filling pressures are not elevated. Clinically I do not think that she is in heart failure. Thank you for allowing me to participate in the care of your patient. Please feel free to contact me if you have any questions. Orders: Orders Complete Blood Count no Diff Today I50.9 - Heart failure, unspecified B Type Natriuretic Peptide Today I50.9 - Heart failure, unspecified CA echo transthoracic complete Today I50.9 - Heart failure, unspecified Coding Level of Care Code Est Pt Level 4 (26622) Diagnoses Essential hypertension I10 Dyspnea on exertion R06.00 Chronic heart failure I50.9
== END 2023-06-19 11:52 | disposition home or self-care (01) ==
PROVIDERS: PCP Family Medicine; Visit Provider Internal Medicine Cardiovascular Disease
DX: I10 Essential (primary) hypertension (principal); R06.00 Dyspnea, unspecified; I50.9 Heart failure, unspecified
CPT/HCPCS: 99214

== ENCOUNTER 2023-06-19 10:53 | Outpatient (REF) | payer MEDICARE, BC, SELFPAY ==
[2023-06-19 13:27] LABS: Hemoglobin 13.2 g/dl (12.0-16.0); Mean Corpuscular HGB Conc 34.7 g/dl (31.0-35.0); Mean Corpuscular Hemoglobin 33.9 pg (27.0-33.0); Mean Corpuscular Volume 97.7 fL (80.0-98.0); Mean Platelet Volume 10.3 fL (9.4-12.3); Platelet Count 284 X10*3/uL (160-400); Red Blood Count 3.89 X10*6/uL (4.20-5.50); Red Cell Distribution Width 11.9 % (11.0-16.0); White Blood Count 7.5 X10*3/uL (4.8-10.8)
[2023-06-19 14:11] LABS: B Type Natriuretic Peptide 721 pg/mL (<100)
== END 2023-06-19 10:54 | disposition home or self-care (01) ==
LOC: HO.LAB 10:53
PROVIDERS: PCP Family Medicine; Visit Provider Internal Medicine Cardiovascular Disease
DX: I11.0 Hypertensive heart disease with heart failure (principal); I50.9 Heart failure, unspecified; R06.00 Dyspnea, unspecified; R53.83 Other fatigue; Z79.899 Other long term (current) drug therapy
CPT/HCPCS: 36415; 83880; 85027; 99212

== ENCOUNTER → 2023-07-10 10:48 | Outpatient (REF) | payer MEDICARE, BC, SELFPAY ==
--- NOTE | 2023-07-10 10:54 | CA_ITS ---
Transthoracic Echocardiogram Patient (Last, First, Middle): Nelda Patiño E Gender: Female Date of : 1945 Age: 78 Procedure Date: 07/10/2023 Procedure Type: Transthoracic Echocardiogram Location: OP Height: 160.02 cm Weight: 37.2 kg BSA: 1.32 m2 Heart Rate: bpm BP: 134 / 66 mmHg Butcher'S Assistant: MIKEL/MICHELET Referring MD: Horace Mata MD Terrapin Fisher: Horace Mata MD Symptoms: I50.9 - Heart failure, unspecified Study Quality: Adequate Conclusions: - Normal left ventricular cavity size. There is mildly increased left ventricular wall thickness. The left ventricular systolic function is mildly decreased. The visually estimated ejection fraction is between 40-45%. - Normal right ventricular cavity size and systolic function. - There is mild dilatation of the ascending aorta measuring 3.40 cm. Findings Left Ventricle Normal left ventricular cavity size. There is mildly increased left ventricular wall thickness. The left ventricular systolic function is mildly decreased. The visually estimated ejection fraction is between 40-45%. There is mild global hypokinesis. There is paradoxical septal motion consistent with a left bundle branch block. Diastolic function is indeterminate on the basis of available data. Right Ventricle Normal right ventricular cavity size and systolic function. Atria The left atrium is normal in size. Aortic Valve There is a normal trileaflet aortic valve. There is no evidence of thickening of the aortic valve. There is no aortic valve stenosis. There is trace (trivial) aortic valve regurgitation. Mitral Valve The mitral valve appears normal. There is mild mitral valve regurgitation. There is no mitral valve stenosis. Pulmonic Valve The pulmonic valve is likely normal. Tricuspid Valve Normal tricuspid valve structure. There is trace tricuspid valve regurgitation. Normal right atrial pressure. There is no evidence of pulmonary hypertension. Great Vessels There is mild dilatation of the ascending aorta measuring 3.40 cm. The visualized portions of the pulmonary artery and branches are normal. Venous The inferior vena cava is normal in size and collapses greater than 50% with inspiration. Pericardium/Pleural There is no evidence of pericardial effusion. Prior Study Comparison Changes noted compared to prior study dated: 09/27/2021. LVEF 40-45%, septal dyssynchrony Measurements 2D Linear Measurements IVSd: 1.05 0.6-0.9/0.6-1.0 cm LVIDd: 4.46 3.9-5.3/4.2-5.9 cm LVIDd Index: 3.38 2.4-3.2/2.2-3.1 cm/m2 LVIDs: 3.83 2.0-3.6 cm LVPWd: 1.10 0.7-1.1 cm Ao Root: 3.10 2.1-3.5 cm LA Diam: 3.00 2.7-3.8/3.0-4.0 cm LAIDs Index: 2.27 1.5-2.3 cm/m2 LV Mass: 208.09 67-162/88-224 g LV Mass Index: 157.65 43-95/49-115 g/m2 LVOT Diam: 1.80 3.0+(-)1.3 cm 2D Systolic Function EF 4C: 44.00 >55% EF 2C: 40.70 >55% EF BiP: 41.90 >55% Mitral Valve E'Lateral: 12.20 E'Medial: 7.62 MR Vol - PW Dopp: 17.19 MR VTI: 1.91 MR ERO: 9.00 MR Alias Osvaldo: 0.37 MR RAD: 0.50 Aortic Valve AoV Pk Osvaldo: 1.28 AoV Mn Osvaldo: 0.76 AoV VTI: 0.22 AoV Pk Grad: 7.00 Aov Mn Grad: 3.00 CLINT Cont.VTI: 1.85 LVOT LVOT Pk Osvaldo: 1.07 LVOT Mn Osvaldo: 0.61 LVOT VTI: 0.16 LVOT Pk Grad: 5.00 LVOT Mn Grad: 2.00 LVOT Diam: 1.80 LVOT Area: 2.54 Diastolic Function E'Medial: 7.62 E' Laterial: 12.20 Right Ventricle TAPSE (mm): 17.60 TVS' Osvaldo: 9.46 Tricuspid Valve TR Pk Osvaldo: 2.67 TR Pk Grad: 29.00 RA Press: 3.00 RVSP: 32.00 Great Vessels Aorta Ao Root-2D: 3.10 2.0-3.7 cm Sinus of Valsalva: 3.10 2.0-3.[address] Ridge: 2.48 1.7-3.4 cm Ao Asc: 3.40 2.1-3.4 cm Updated in Other Vendor System with Status of Final Horace Mata MD electronically signed on 07/10/2023 3:03:55 PM with status of Final
== END ==
LOC: HO.CARD 10:48
PROVIDERS: PCP Family Medicine; Visit Provider Internal Medicine Cardiovascular Disease
DX: I50.9 Heart failure, unspecified (principal)
CPT/HCPCS: 93306

== ENCOUNTER → 2023-07-10 10:54 | Outpatient (BNV) | payer MEDICARE, BC, SELFPAY | PROVIDERS: PCP Family Medicine; Visit Provider Internal Medicine Cardiovascular Disease | DX: I50.9 Heart failure, unspecified (principal) | CPT/HCPCS: 93306 ==

== ENCOUNTER 2023-10-02 14:10 | Outpatient (AMB) | payer MEDICARE, BC, SELFPAY ==
[2023-10-02 14:17] VITALS: BP 150/80; PULSE 86; BMI 15.1
--- NOTE | 2023-10-02 14:17 | A.OFFVIS_ITS ---
Intake Vital Signs 10/02/23 14:17 Height 5 ft 3 in Weight 85 lb 1.575 oz BMI 15.1 BP 150/80 H Blood Pressure Location Lt brachial Position Sitting Pulse 86 Intake Visit Reasons: 3 month follow up Intake Note: pt states that she its fine with some shortness of breath since she had the defibrillator out its been getting more worse. 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 Accompanied by: Self / Same As Patient Allergies No Known Allergies Allergy (Verified 06/19/23 11:09) Medication List - Last Reconciled 10/02/23 by Horace Mata MD albuterol sulfate 2.5 mg inhalation Q4-6H PRN albuterol sulfate 90 mcg/actuation 1 puff inhalation Q4H PRN aspirin (Adult Low Dose Aspirin) 81 mg PO DAILY atorvastatin 40 mg PO DAILY calcium carbonate (Calcium) 600 mg PO DAILY carvedilol 6.25 mg PO BID cyanocobalamin (vitamin B-12) 1,000 mcg PO DAILY fluticasone propionate 50 mcg/actuation 1 spray intranasal DAILY furosemide 20 mg PO DAILY isosorbide mononitrate ER 30 mg PO DAILY levothyroxine (Levoxyl) 50 mcg PO DAILY losartan 50 mg PO DAILY multivitamin 1 tab PO DAILY multivitamin 1 tab PO DAILY tiotropium-olodaterol 2.5-2.5 mcg/actuation (Stiolto Respimat) 2 puffs inhalation DAILY HPI HPI Comments History of Present Illness Details 78-year-old pleasant female here for [facility]-up. 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 She was seen for perioperative risk assessment. She underwent surgery for uterine prolapse under local anesthesia/spinal because she was high risk for general anesthesia. She had an echocardiogram in July 2018 [facility] which showed recovery of her left ventricular ejection fraction which was normal. She recently was found to have a unequal blood pressures in both arms with a 40 mm difference between the left and right arms. She underwent CTA at [facility] which showed 90% stenosis at the origin of left subclavian artery. She has some vertigo at baseline. No clear subclavian steal symptoms. She is here for follow-up. She has shortness of breath which is worse than before. 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 Her blood pressure in the office is elevated. As mentioned above she has left subclavian stenosis and blood pressure in that arm is unreliable. Right arm blood pressures are elevated and we discussed about starting isosorbide in addition to her medications that she is taking. No orthopnea or PND. No significant edema. She is using her inhalers. We decided to add isosorbide mononitrate 30 mg once a day to her regimen. She is returning for follow-up after that. She is saying that her dyspnea is improved. Her blood pressure also appears to be better. Her EKG interestingly showing PVCs. She has no symptoms and is completely asymptomatic and has no palpitations. I advised her to increase the carvedilol but she said previously when she increase the carvedilol she could not sleep at night. She is undergoing a lot of stress because her has multiple myeloma and has not been doing well. Recent device interrogation has shown that her battery life is close to 3 months now and she is seeing thoracic surgery to have a generator changed. She was started on magnesium for hypomagnesemia but had significant diarrhea and she has stopped using magnesium at this point. She has no chest pain or significant shortness of breath. Her is undergoing chemotherapy for multiple myeloma. He has significant memory problems and she is quite involved in and stressed by his care. 03/04/2023: Returns for follow-up. She was referred to thoracic surgery and underwent generator change for Bi V AICD. She had operative side issues and unfortunately had skin breakdown with exposure of the underlying device. This was because of her being really underweight. She went to [facility] and was subsequently transferred to [facility] where after discussion with electrophysiology and cardiothoracic surgery device was explanted. Because she had epicardial leads placed for Bi V AICD in the past, it was decided to start her on doxycycline long-term by Infectious Disease. She is currently in a rehab facility. Only complaint she has is that she gets significant pain at site at the time did dressings are changed and the wound is cleaned out. She has wound VAC in place. 06/19/2023: She returns for follow-up. H er wound over the left chest wall has healed. She is complaining of significant dyspnea with activity. She is saying she is unable to do any significant activity inside the house. She has 12 stairs to go down to the sellar and she has to take her time in going up and is huffing and puffing when she reaches to talk. She had quite complex issue after the Bi V ICD generator was changed which eroded through the skin and eventually was removed. She had wound VAC in place and was not mobile. Previously she had not done well then she stopped exercising or doing any activities and had more dyspnea and fatigue. She is complaining of very mild edema at the right ankle only. She is saying that her weight has been stable and she has not gained any weight. She is thin and quite underweight at baseline. 10/02/2023: She returns for follow-up. She is due to see Dr. Troncoso next week at [facility]. She is saying she has been progressively short of breath over the last month to 2. She is having trouble going upstairs. She has orthopnea. She also has noticed lower extremity edema and clearly has 1 to 2+ ankle edema at this point. Blood pressure is elevated. She was previously put on b.i.d. Lasix but she could not tolerate it due to dizziness. She is currently taking 20 mg of Lasix. She also has been getting some epigastric discomfort which is a burning sensation after eating. [facility] Medical History CAD (coronary artery disease) Cardiomyopathy CHF (congestive heart failure) Essential hypertension Hyperlipidemia Hypothyroidism ICD (implantable cardioverter-defibrillator) in place (~2017) Personal history of nicotine dependence PVC (premature ventricular contraction) Surgical History History of pubovaginal sling History of carotid endarterectomy History of implantable cardiac defibrillator (ICD) History of hernia repair History of appendectomy History of tonsillectomy History of heart artery stent Family History Father CVD (cardiovascular disease) Obesity Mother CVD (cardiovascular disease) Diabetes Social History Alcohol intake: current Alcohol intake frequency: 0-2 drinks per day Alcohol type: wine Patient Tobacco Use Status: Former Tobacco user Quit Date: 2014 Tobacco use type: Cigarette Years Smoked: 50 +/- Review of Systems Const Denies chills, Denies fatigue, Denies fever(s), Denies frequent falls, Denies weakness, Denies weight gain and Denies weight loss ENT Denies dizziness Card Denies chest pain, Denies leg edema, Denies lightheadedness, Denies palpitations, Denies dyspnea and Denies dyspnea on exertion Resp Denies cough, Denies dyspnea and Denies dyspnea on exertion GI Denies hematochezia Musc Denies abnormal gait, Denies muscle weakness, Denies numbness, Denies radiating pain into limb and Denies tingling Neuro Denies abnormal gait, Denies dizziness, Denies frequent falls, Denies numbness, Denies tingling and Denies weakness Endo Denies fatigue and Denies palpitations Physical Exam Vital Signs: Last Vital Signs Pulse 86 10/02/23 14:17 BP 150/80 H 10/02/23 14:17 BMI result Body Mass Index 15.1 GENERAL APPEARANCE: Thin, frail lady. SOB NECK/THYROID: no carotid bruit, no jugular venous distention. Mild HJR. HEART: no murmurs, regular rate and rhythm, S1, S2 normal. LUNGS: clear to auscultation bilaterally. ABDOMEN: normal, bowel sounds present, soft, nontender, nondistended. EXTREMITIES: 1-2 + ankle edema. PERIPHERAL PULSES: equal. NEUROLOGIC: nonfocal, , alert and oriented. Office Procedures EKG Details: Sinus rhythm 86 beats per minute, normal axis, left ventricular hypertrophy with QRS widening and repolarization abnormality, QTC 490 milliseconds [id number], Complete Assessment & Plan Assessment & Plan (1) Acute on chronic heart failure: Code(s): I50.9 - Heart failure, unspecified (2) Cardiomyopathy: Code(s): I42.9 - Cardiomyopathy, unspecified Plan 78-year-old female presenting with acute on chronic congestive heart failure. She previously had IP/MOSAIC TECHNICIAN D done in the past for cardiomyopathy with improvement ejection fraction. After generator change recently she unfortunately had wound breakdown due to low body mass and device was exposed. This was removed by Cardiothoracic surgery at [facility] and she was given antibiotics which she completed in August 2023. Her EF in June after removal of hardware was 40 45%. She has been referred to electrophysiology for assessment for left bundle-branch area pacing. She is here for follow-up and is clinically volume overloaded. She was given b.i.d. Lasix before but developed some dizziness and could not tolerate it. Her is sick and she takes care of him and she was not comfortable taking it twice a day. Currently she looks volume overloaded and after some discussion she is agreeable to increase the Lasix from 20-40 mg. Her blood pressure is elevated but she is very wary about her blood pressure being low at home when she is taking care of her . I am increasing the Lasix to 40 mg once a day. She will check her weight with her home scale and will monitor daily. Will bring her back in 1 week for follow-up. She is seeing Dr. Troncoso next week. My hope is that we can stabilize her and she could go for for left bundle-branch area pacing. Thank you for allowing me to participate in the care of your patient. Please feel free to contact me if you have any questions. Medications: New omeprazole 40 mg PO DAILY 90 caps 3RF Changed From furosemide 20 mg PO DAILY To furosemide 40 mg PO DAILY Coding Level of Care Code Est Pt Level 5 (99459) Diagnoses Acute on chronic heart failure I50.9 Cardiomyopathy I42.9 CPT Codes EKG - CPT: 29553-[id number], Complete ([id number])
== END 2023-10-02 15:00 | disposition home or self-care (01) ==
PROVIDERS: PCP Family Medicine; Visit Provider Internal Medicine Cardiovascular Disease
DX: I50.9 Heart failure, unspecified (principal); I42.9 Cardiomyopathy, unspecified
CPT/HCPCS: 93010; 99214

== ENCOUNTER → 2023-10-02 14:10 | Outpatient (BNVA) | payer MEDICARE, BC, SELFPAY | PROVIDERS: PCP Family Medicine; Visit Provider Internal Medicine Cardiovascular Disease | DX: I50.9 Heart failure, unspecified (principal); I42.9 Cardiomyopathy, unspecified | CPT/HCPCS: 93005; 99212 ==

== ENCOUNTER 2023-10-09 12:58 | Outpatient (AMB) | payer MEDICARE, BC, SELFPAY ==
[2023-10-09 13:01] VITALS: BP 150/70; PULSE 93; BMI 14.6
--- NOTE | 2023-10-09 13:01 | A.OFFVIS_ITS ---
Intake Vital Signs 10/09/23 13:01 Height 5 ft 3 in Weight 82 lb 7.246 oz BMI 14.6 BP 150/70 H Blood Pressure Location Rt brachial Position Sitting Pulse 93 Pulse Source Pulse Oximeter Intake Visit Reasons: 1 wk f/up per KM Intake Note: pt states that she its still having some SOB. Athletic Director Required: No Accompanied by: Self / Same As Patient Allergies No Known Allergies Allergy (Verified 06/19/23 11:09) Medication List - Last Reconciled 10/10/23 by Horace Mata MD albuterol sulfate 2.5 mg inhalation Q4-6H PRN albuterol sulfate 90 mcg/actuation 1 puff inhalation Q4H PRN aspirin (Adult Low Dose Aspirin) 81 mg PO DAILY atorvastatin 40 mg PO DAILY calcium carbonate (Calcium) 600 mg PO DAILY carvedilol 6.25 mg PO BID cyanocobalamin (vitamin B-12) 1,000 mcg PO DAILY fluticasone propionate 50 mcg/actuation 1 spray intranasal DAILY furosemide 40 mg PO DAILY isosorbide mononitrate ER 30 mg PO DAILY levothyroxine (Levoxyl) 50 mcg PO DAILY losartan 50 mg PO DAILY multivitamin 1 tab PO DAILY multivitamin 1 tab PO DAILY omeprazole 40 mg PO DAILY umeclidinium-vilanterol 62.5-25 mcg/actuation (Anoro Ellipta) 1 inh inhalation DAILY HPI HPI Comments History of Present Illness Details 78-year-old pleasant female here for [facility] low-up. She has background of cardiomyopathy which was thought to be mixed ischemic and nonischemic cardiomyo benjamin to left bundle-branch block. 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 She was seen for perioperative risk assessment. She underwent surgery for uterine prolapse under local anesthesia/spinal because she was high risk for general anesthesia. She had an echocardiogram in July 2018 [facility] which showed recovery of her left ventricular ejection fraction which was normal. She recently was found to have a unequal blood pressures in both arms with a 40 mm difference between the left and right arms. She underwent CTA at [facility] which showed 90% stenosis at the origin of left subclavian artery. She has some vertigo at baseline. No clear subclavian steal symptoms. She is here for follow-up. She has shortness of breath which is worse than before. 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 Her blood pressure in the office is elevated. As mentioned above she has left subclavian stenosis and blood pressure in that arm is unreliable. Right arm blood pressures are elevated and we discussed about starting isosorbide in addition to her medications that she is taking. No orthopnea or PND. No significant edema. She is using her inhalers. We decided to add isosorbide mononitrate 30 mg once a day to her regimen. She is returning for follow-up after that. She is saying that her dyspnea is improved. Her blood pressure also appears to be better. Her EKG interestingly showing PVCs. She has no symptoms and is completely asymptomatic and has no palpitations. I advised her to increase the carvedilol but she said previously when she increase the carvedilol she could not sleep at night. She is undergoing a lot of stress because her has multiple myeloma and has not been doing well. Recent device interrogation has shown that her battery life is close to 3 months now and she is seeing thoracic surgery to have a generator changed. She was started on magnesium for hypomagnesemia but had significant diarrhea and she has stopped using magnesium at this point. She has no chest pain or significant shortness of breath. Her is undergoing chemotherapy for multiple myeloma. He has significant memory problems and she is quite involved in and stressed by his care. 03/04/2023: Returns for follow-up. She was referred to thoracic surgery and underwent generator change for Bi V AICD. She had operative side issues and unfortunately had skin breakdown with exposure of the underlying device. This was because of her being really underweight. She went to [facility] and was subsequently transferred to [facility] where after discussion with electrophysiology and cardiothoracic surgery device was explanted. Because she had epicardial leads placed for Bi V AICD in the past, it was decided to start her on doxycycline long-term by Infectious Disease. She is currently in a rehab facility. Only complaint she has is that she gets significant pain at site at the time did dressings are changed and the wound is cleaned out. She has wound VAC in place. 06/19/2023: She returns for follow-up. H er wound over the left chest wall has healed. She is complaining of significant dyspnea with activity. She is saying she is unable to do any significant activity inside the house. She has 12 stairs to go down to the sellar and she has to take her time in going up and is huffing and puffing when she reaches to talk. She had quite complex issue after the Bi V ICD generator was changed which eroded through the skin and eventually was removed. She had wound VAC in place and was not mobile. Previously she had not done well then she stopped exercising or doing any activities and had more dyspnea and fatigue. She is complaining of very mild edema at the right ankle only. She is saying that her weight has been stable and she has not gained any weight. She is thin and quite underweight at baseline. 10/02/2023: She returns for follow-up. She is due to see Dr. Troncoso next week at [facility]. She is saying she has been progressively short of breath over the last month to 2. She is having trouble going upstairs. She has orthopnea. She also has noticed lower extremity edema and clearly has 1 to 2+ ankle edema at this point. Blood pressure is elevated. She was previously put on b.i.d. Lasix but she could not tolerate it due to dizziness. She is currently taking 20 mg of Lasix. She also has been getting some epigastric discomfort which is a burning sensation after eating. 10/02/2023: She returns for follow-up. Over the last week her weight has gone down from 85.2 lb 282 lb. She is taking 40 mg of Lasix at this point. Blood pressure is still elevated. She is saying that she is still quite short of breath. On exam today she is also wheezy. She has known history of COPD but does not see pulmonology. She has not interested in seeing a engraved roller inspector. She is taking Anoro Ellipta and albuterol. She also is using albuterol in halers. She said she has been coughing 2 over the last week or 2. [facility] Medical History CAD (coronary artery disease) Cardiomyopathy CHF (congestive heart failure) Essential hypertension Hyperlipidemia Hypothyroidism ICD (implantable cardioverter-defibrillator) in place (~2016) Personal history of nicotine dependence PVC (premature ventricular contraction) Surgical History History of pubovaginal sling History of carotid endarterectomy History of implantable cardiac defibrillator (ICD) History of hernia repair History of appendectomy History of tonsillectomy History of heart artery stent Family History Father CVD (cardiovascular disease) Obesity Mother CVD (cardiovascular disease) Diabetes Social History Alcohol intake: current Alcohol intake frequency: 0-2 drinks per day Alcohol type: wine Patient Tobacco Use Status: Former Tobacco user Quit Date: 2014 Tobacco use type: Cigarette Years Smoked: 50 +/- Review of Systems Const Denies chills, Denies fatigue, Denies fever(s), Denies frequent falls, Denies weakness, Denies weight gain and Denies weight loss ENT Denies dizziness Card Denies chest pain, Denies leg edema, Denies lightheadedness, Denies palpitations, Reports dyspnea and Reports dyspnea on exertion Resp Denies cough, Reports dyspnea and Reports dyspnea on exertion GI Denies hematochezia Musc Denies abnormal gait, Denies muscle weakness, Denies numbness, Denies radiating pain into limb and Denies tingling Neuro Denies abnormal gait, Denies dizziness, Denies frequent falls, Denies numbness, Denies tingling and Denies weakness Endo Denies fatigue and Denies palpitations Physical Exam Vital Signs: Last Vital Signs Pulse 93 10/09/23 13:01 BP 150/70 H 10/09/23 13:01 BMI result Body Mass Index 14.6 GENERAL APPEARANCE: Thin, frail lady. SOB NECK/THYROID: no carotid bruit, no jugular venous distention. HEART: no murmurs, regular rate and rhythm, S1, S2 normal. LUNGS: Mild expiratory wheezes. ABDOMEN: normal, bowel sounds present, soft, nontender, nondistended. EXTREMITIES: No ankle edema. PERIPHERAL PULSES: equal. NEUROLOGIC: nonfocal, , alert and oriented. Assessment & Plan Assessment & Plan (1) Acute on chronic heart failure: Code(s): I50.9 - Heart failure, unspecified (2) Cardiomyopathy: Code(s): I42.9 - Cardiomyopathy, unspecified Plan 78-year-old female presenting with acute on chronic congestive heart failure. She previously had HOUSE CALLS NURSE PRACTITIONER D done in the past for cardiomyopathy with improvement ejection fraction. After generator change recently she unfortunately had wound breakdown due to low body mass and device was exposed. This was removed by Cardiothoracic surgery at [facility] and she was given antibiotics which she completed in August 2023. Her EF in June after removal of hardware was 40 45%. She has been referred to electrophysiology for assessment for left bundle-branch area pacing. Last week I increase the Lasix to 40 mg daily. This has improved her volume status but she continues to be quite short of breath. She also has wheezes on examination and has known history of COPD. I have advised her to take some prednisone I am sending prednisone to her pharmacy. Blood pressure is elevated and I have advised her to increase losartan to 50 mg twice a day. She will be seeing Dr. Troncoso tomorrow to discuss about left bundle-branch area pacing. We will arrange an echocardiogram to reassess the ejection fraction. Thank you for allowing me to participate in the care of your patient. Please feel free to contact me if you have any questions. Orders: Orders CA echo limited Today I42.9 - Cardiomyopathy, unspecified Medications: New prednisone Take 2 tablets for 4 days then 1 tablet for 4 days orally daily; 14 tabs 0RF Changed From losartan 50 mg PO DAILY To losartan 50 mg PO BID Coding Level of Care Code Est Pt Level 4 (85071) Diagnoses Acute on chronic heart failure I50.9 Cardiomyopathy I42.9
== END 2023-10-09 13:59 | disposition home or self-care (01) ==
PROVIDERS: PCP Family Medicine; Visit Provider Internal Medicine Cardiovascular Disease
DX: I50.9 Heart failure, unspecified (principal); I42.9 Cardiomyopathy, unspecified
CPT/HCPCS: 99214

== ENCOUNTER → 2023-10-09 12:58 | Outpatient (BNVA) | payer MEDICARE, BC, SELFPAY | PROVIDERS: PCP Family Medicine; Visit Provider Internal Medicine Cardiovascular Disease | DX: I50.9 Heart failure, unspecified (principal); I42.9 Cardiomyopathy, unspecified | CPT/HCPCS: 99212 ==

== ENCOUNTER → 2023-10-11 14:49 | Outpatient (REF) | payer MEDICARE, BC, SELFPAY ==
--- NOTE | 2023-10-11 14:53 | CA_ITS ---
Transthoracic Echocardiogram Patient (Last, First, Middle): Nelda Patiño E Gender: Female Date of : 1945 Age: 78 Procedure Date: 10/11/2023 Procedure Type: Transthoracic Echocardiogram Location: OP Height: 160.02 cm Weight: 37.2 kg BSA: 1.32 m2 Heart Rate: 90 bpm BP: 148 / 72 mmHg Property Valuer: SB Referring MD: Horace Mata MD Symptoms: I42.9 - Cardiomyopathy, unspecified Study Quality: Adequate ECG Rhythm: Sinus Conclusions: - Normal left ventricular cavity size. There is mildly increased left ventricular wall thickness. The left ventricular systolic function is severely decreased. The visually estimated ejection fraction is between 15-20%. There is paradoxical septal motion consistent with a left bundle branch block. Diastolic function is indeterminate on the basis of available data. - There is mild to moderate aortic valve regurgitation. - There is mild to moderate mitral valve regurgitation. - There is no evidence of pericardial effusion. Findings Left Ventricle Normal left ventricular cavity size. There is mildly increased left ventricular wall thickness. The left ventricular systolic function is severely decreased. The visually estimated ejection fraction is between 15 20%. There is paradoxical septal motion consistent with a left bundle branch block. Diastolic function is indeterminate on the basis of available data. Aortic Valve There is mild to moderate aortic valve regurgitation. Mitral Valve There is mild to moderate mitral valve regurgitation. Venous The inferior vena cava is normal in size and collapses greater than 50% with inspiration. Pericardium/Pleural There is no evidence of pericardial effusion. Prior Study Comparison Changes noted compared to prior study dated: 07/10/2023. Severe LV dysfunction. Measurements 2D Linear Measurements IVSd: 1.12 0.6-0.9/0.6-1.0 cm LVIDd: 4.43 3.9-5.3/4.2-5.9 cm LVIDd Index: 3.36 2.4-3.2/2.2-3.1 cm/m2 LVIDs: 3.67 2.0-3.6 cm LVPWd: 0.80 0.7-1.1 cm LV Mass: 176.25 67-162/88-224 g LV Mass Index: 133.52 43-95/49-115 g/m2 LVOT Diam: 1.90 3.0+(-)1.3 cm 2D Systolic Function EF 4C: 30.70 >55% EF 2C: 25.10 >55% EF BiP: 29.50 >55% Mitral Valve MV Pk E: 0.76 MV PK A: 1.65 E/A: 0.50 E'Lateral: 2.94 E'Medial: 3.26 E/E' Med: 23.20 E/E' Lat: 25.70 MR Vol - PW Dopp: 13.26 MR VTI: 2.21 MR ERO: 6.00 MR Alias Osvaldo: 0.39 MR RAD: 0.40 Aortic Valve AI Pk Osvaldo: 3.56 AI VTI: 1.17 AI Titus: 2.94 AI Alias Osvaldo: 0.39 AI RV - PISA: 13.00 ERO - PISA: 11.00 LVOT LVOT Pk Osvaldo: 0.90 LVOT Mn Osvaldo: 0.61 LVOT VTI: 0.17 LVOT Pk Grad: 3.00 LVOT Mn Grad: 2.00 LVOT Diam: 1.90 LVOT Area: 2.84 Diastolic Function MV Pk E: 0.76 MV Pk A: 1.65 E/A: 0.50 E'Medial: 3.26 E/E' Med: 23.20 E' Laterial: 2.94 E/E' Lat: 25.70 Right Ventricle TAPSE (mm): 15.90 TVS' Osvaldo: 9.79 Tricuspid Valve TR Pk Osvaldo: 2.44 TR Pk Grad: 24.00 RA Press: 8.00 RVSP: 32.00 Updated in Other Vendor System with Status of Final Horace Mata MD electronically signed on 10/11/2023 4:04:57 PM with status of Final
== END ==
LOC: HO.CARD 14:49
PROVIDERS: PCP Family Medicine; Visit Provider Internal Medicine Cardiovascular Disease
DX: I42.9 Cardiomyopathy, unspecified (principal)
CPT/HCPCS: 93308

== ENCOUNTER → 2023-10-11 14:53 | Outpatient (BNV) | payer MEDICARE, BC, SELFPAY | PROVIDERS: PCP Family Medicine; Visit Provider Internal Medicine Cardiovascular Disease | DX: I35.1 Nonrheumatic aortic (valve) insufficiency (principal); I34.0 Nonrheumatic mitral (valve) insufficiency | CPT/HCPCS: 93308 ==

== ENCOUNTER → 2023-12-30 23:59 | Outpatient (BNV) | payer MEDICARE, BC, SELFPAY ==
--- NOTE | 2024-01-12 19:45 | A.OFFVIS_ITS ---
Intake Visit Reasons: Remote Device Check - Medtronic Allergies No Known Allergies Allergy (Verified 06/19/23 11:09) [facility] Medical History CAD (coronary artery disease) Cardiomyopathy CHF (congestive heart failure) Essential hypertension Hyperlipidemia Hypothyroidism ICD (implantable cardioverter-defibrillator) in place (~2016) Personal history of nicotine dependence PVC (premature ventricular contraction) Surgical History History of pubovaginal sling History of carotid endarterectomy History of implantable cardiac defibrillator (ICD) History of hernia repair History of appendectomy History of tonsillectomy History of heart artery stent Family History Father CVD (cardiovascular disease) Obesity Mother CVD (cardiovascular disease) Diabetes Social History Alcohol intake: current Alcohol intake frequency: 0-2 drinks per day Alcohol type: wine Patient Tobacco Use Status: Former Tobacco user Tobacco use type: Cigarette Years Smoked: 50 +/- Office Procedures Cardiac Device Check Cardiac Device Check Details: PPM Good battery life BRAZER RESISTANCE 98%. No alerts. 10914-GO Cardiac Device Check, pacemaker dual lead Procedure code (CPT) selection complete Assessment & Plan Assessment & Plan (1) ICD (implantable cardioverter-defibrillator) in place: Onset Date: ~2016 Comment: (Medtronic Amplia ICD/STRETCHING MACHINE TENDER FRAME - placed 2016, generator change 2022) Code(s): Z95.810 - Presence of automatic (implantable) cardiac defibrillator Category: Medical Plan: Coding Level of Care Code Procedure Only Diagnoses ICD (implantable cardioverter-defibrillator) in place Z95.810 CPT Codes Cardiac Device Check - Cardiac Device 2: 60469-AL Cardiac Device Check, pacemaker dual lead ([id number])
== END ==
PROVIDERS: PCP Family Medicine; Visit Provider Internal Medicine Cardiovascular Disease
DX: Z45.018 Encounter for adjustment and management of other part of cardiac pacemaker (principal)
CPT/HCPCS: 93294

== ENCOUNTER → 2024-01-10 13:09 | Outpatient (REF) | payer MEDICARE, BC, SELFPAY ==
--- NOTE | 2024-01-10 13:12 | CA_ITS ---
Transthoracic Echocardiogram Patient (Last, First, Middle): Nelda Patiño E Gender: Female Date of : 1945 Age: 78 Procedure Date: 01/10/2024 Procedure Type: Transthoracic Echocardiogram Location: OP Height: 160.02 cm Weight: 38.1 kg BSA: 1.34 m2 Heart Rate: 77 bpm BP: 185 / 75 mmHg [place]ud Mill Tender: MAURY Bailey MD: Horace Mata MD Clinical Appeals Reviewer: Delonte Villalta MD Symptoms: I42.9 - Cardiomyopathy, unspecified Study Quality: Fair, Limited by order ECG Rhythm: Sinus Conclusions: - [id number]-[id number] LV systolic dysfunction with LVEF of 40-45% with impaired relaxation filling pattern Findings Left Ventricle Normal left ventricular cavity size. There is mildly increased left ventricular wall thickness. The left ventricular systolic function is mild to moderately decreased. The visually estimated ejection fraction is between 40-45%. Spectral Doppler is indicative of an impaired relaxation filling pattern. E/E prime ratio is between 8 and 15 consistent with indeterminate filling pressures. Prior Study Comparison Changes noted compared to prior study dated: 10/11/2023. LV systolic function has improved Measurements 2D Linear Measurements IVSd: 1.17 0.6-0.9/0.6-1.0 cm LVIDd: 4.05 3.9-5.3/4.2-5.9 cm LVIDd Index: 3.02 2.4-3.2/2.2-3.1 cm/m2 LVIDs: 3.46 2.0-3.6 cm LVPWd: 1.15 0.7-1.1 cm LA Diam: 3.20 2.7-3.8/3.0-4.0 cm LAIDs Index: 2.39 1.5-2.3 cm/m2 LV Mass: 199.73 67-162/88-224 g LV Mass Index: 149.05 43-95/49-115 g/m2 LVOT Diam: 1.70 3.0+(-)1.3 cm 2D Systolic Function EF 4C: 41.70 >55% EF 2C: 39.40 >55% EF BiP: 41.00 >55% Mitral Valve MV Pk E: 0.81 MV PK A: 1.45 MV Decel Time: 324.00 E/A: 0.60 E'Lateral: 3.33 E'Medial: 2.72 E/E' Med: 29.90 E/E' Lat: 24.40 PHT: 95.00 MVA PHT: 2.[address] [place]: 2.51 LVOT LVOT Pk Osvaldo: 1.08 LVOT Mn Osvaldo: 0.64 LVOT VTI: 0.18 LVOT Pk Grad: 5.00 LVOT Mn Grad: 2.00 LVOT Diam: 1.70 LVOT Area: 2.27 Diastolic Function MV Pk E: 0.81 MV Pk A: 1.45 E/A: 0.60 E'Medial: 2.72 E/E' Med: 29.90 E' Laterial: 3.33 E/E' Lat: 24.40 Updated in Other Vendor System with Status of Final Delonte Villalta MD electronically signed on 01/10/2024 3:07:35 PM with status of Final
== END ==
LOC: HO.CARD 13:09
PROVIDERS: PCP Family Medicine; Visit Provider Internal Medicine Cardiovascular Disease
DX: I42.9 Cardiomyopathy, unspecified (principal)
CPT/HCPCS: 93308

== ENCOUNTER → 2024-01-10 13:12 | Outpatient (BNV) | payer MEDICARE, BC, SELFPAY ==
--- NOTE | 2024-01-11 21:32 | A.OFFVIS_ITS ---
Intake Visit Reasons: Cardiomyopathy Allergies No Known Allergies Allergy (Verified 06/19/23 11:09) [facility] Medical History CAD (coronary artery disease) Cardiomyopathy CHF (congestive heart failure) Essential hypertension Hyperlipidemia Hypothyroidism ICD (implantable cardioverter-defibrillator) in place (~2017) Personal history of nicotine dependence PVC (premature ventricular contraction) Surgical History History of pubovaginal sling History of carotid endarterectomy History of implantable cardiac defibrillator (ICD) History of hernia repair History of appendectomy History of tonsillectomy History of heart artery stent Family History Father CVD (cardiovascular disease) Obesity Mother CVD (cardiovascular disease) Diabetes Social History Alcohol intake: current Alcohol intake frequency: 0-2 drinks per day Alcohol type: wine Patient Tobacco Use Status: Former Tobacco user Tobacco use type: Cigarette Years Smoked: 50 +/- Office Procedures Cardiac Device Check Cardiac Device Check Details: PPM Good battery V-paced >99%. No new alerts. 18836-[id number] Cardiac Device Check, pacemaker dual lead Procedure code (CPT) selection complete Assessment & Plan Assessment & Plan (1) Chronic heart failure: Code(s): I50.9 - Heart failure, unspecified Category: Medical Plan: Orders: Orders AMB Cardiac Device Follow-up 01/10/24 I50.9 - Heart failure, unspecified Coding Level of Care Code Procedure Only Diagnoses Chronic heart failure I50.9 CPT Codes Cardiac Device Check - Cardiac Device 2: 31155-UO Cardiac Device Check, pacemaker dual lead ([id number])
== END ==
PROVIDERS: PCP Family Medicine; Visit Provider Internal Medicine Cardiovascular Disease
DX: I42.9 Cardiomyopathy, unspecified (principal); R93.1 Abnormal findings on diagnostic imaging of heart and coronary circulation
CPT/HCPCS: 93308; 93321

== ENCOUNTER → 2024-03-30 23:59 | Outpatient (BNV) | payer MEDICARE, BC, SELFPAY ==
--- NOTE | 2024-04-10 18:37 | A.OFFVIS_ITS ---
Intake Visit Reasons: Remote Device Check - Medtronic Allergies No Known Allergies Allergy (Verified 06/19/23 11:09) [facility] Medical History CAD (coronary artery disease) Cardiomyopathy CHF (congestive heart failure) Essential hypertension Hyperlipidemia Hypothyroidism ICD (implantable cardioverter-defibrillator) in place (~2017) Personal history of nicotine dependence PVC (premature ventricular contraction) Surgical History History of pubovaginal sling History of carotid endarterectomy History of implantable cardiac defibrillator (ICD) History of hernia repair History of appendectomy History of tonsillectomy History of heart artery stent Family History Father CVD (cardiovascular disease) Obesity Mother CVD (cardiovascular disease) Diabetes Social History Alcohol intake: current Alcohol intake frequency: 0-2 drinks per day Alcohol type: wine Patient Tobacco Use Status: Former Tobacco user Tobacco use type: Cigarette Years Smoked: 50 +/- Office Procedures Cardiac Device Check Cardiac Device Check Details: PPM Good battery life [place] 96%. No new alerts. [id number] Cardiac Device Check, pacemaker dual lead Procedure code (CPT) selection complete Assessment & Plan Assessment & Plan (1) Chronic heart failure: Code(s): I50.9 - Heart failure, unspecified Category: Medical Plan: Coding Level of Care Code Procedure Only Diagnoses Chronic heart failure I50.9 CPT Codes Cardiac Device Check - Cardiac Device 2: 35184-MT Cardiac Device Check, pacemaker dual lead ([id number])
== END ==
PROVIDERS: PCP Family Medicine; Visit Provider Internal Medicine Cardiovascular Disease
DX: I50.9 Heart failure, unspecified (principal); Z95.0 Presence of cardiac pacemaker
CPT/HCPCS: 93294

== ENCOUNTER 2024-06-08 12:52 | Outpatient (AMB) | payer MEDICARE, BC, SELFPAY ==
--- NOTE | 2024-06-08 12:56 | A.OFFVIS_ITS ---
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 Accompanied by: Sister Allergies No Known Allergies Allergy (Verified 06/19/23 11:09) Medication List - Last Reconciled 06/08/24 by Horace Mata MD albuterol sulfate 2.5 mg inhalation Q4-6H PRN albuterol sulfate 90 mcg/actuation 1 puff inhalation Q4H PRN aspirin (Adult Low Dose Aspirin) 81 mg PO DAILY atorvastatin 40 mg PO DAILY calcium carbonate (Calcium 600) 600 mg PO DAILY carvedilol 6.25 mg PO BID cyanocobalamin (vitamin B-12) 1,000 mcg PO DAILY fluticasone propionate 50 mcg/actuation 1 spray intranasal DAILY furosemide 40 mg PO DAILY isosorbide mononitrate ER 30 mg PO DAILY levothyroxine (Levoxyl) 50 mcg PO DAILY losartan 50 mg PO DAILY multivitamin 1 tab PO DAILY omeprazole 40 mg PO DAILY prednisone Take 2 tablets for 4 days then 1 tablet for 4 days orally daily; umeclidinium-vilanterol 62.5-25 mcg/actuation (Anoro Ellipta) 1 inh inhalation DAILY HPI Comments Details: 78-year-old pleasant female here for follow-up. 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 She is status post CLOTH WASHER BACK TENDER. She was seen for perioperative risk assessment. She underwent surgery for uterine prolapse u nder local anesthesia/spinal because she was high risk for general anesthesia. She had an echocardiogram in July 2018 [facility] which showed recovery of her left ventricular ejection fraction which was normal. She recently was found to have a unequal blood pressures in both arms with a 40 mm difference between the left and right arms. She underwent CTA at [facility] which showed 90% stenosis at the origin of left subclavian artery. She has some vertigo at baseline. No clear subclavian steal symptoms. She is here for follow-up. She has shortness of breath which is worse than before. 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 Her blood pressure in the office is elevated. As mentioned above she has left subclavian stenosis and blood pressure in that arm is unreliable. Right arm blood pressures are elevated and we discussed about starting isosorbide in addition to her medications that she is taking. No orthopnea or PND. No significant edema. She is using her inhalers. We decided to add isosorbide mononitrate 30 mg once a day to her regimen. She is returning for follow-up after that. She is saying that her dyspnea is improved. Her blood pressure also appears to be better. Her EKG interestingly showing PVCs. She has no symptoms and is completely asymptomatic and has no palpitations. I advised her to increase the carvedilol but she said previously when she increase the carvedilol she could not sleep at night. She is undergoing a lot of stress because her has multiple myeloma and has not been doing well. Recent device interrogation has shown that her battery life is close to 3 months now and she is seeing thoracic surgery to have a generator changed. She was started on magnesium for hypomagnesemia but had significant diarrhea and she has stopped using magnesium at this point. She has no chest pain or significant shortness of breath. Her is undergoing chemotherapy for multiple myeloma. He has significant memory problems and she is quite involved in and stressed by his care. 03/04/2023: Returns for follow-up. She was referred to thoracic surgery and un derwent generator change for Bi V AICD. She had operative side issues and unfortunately had skin breakdown with exposure of the underlying device. This was because of her being really underweight. She went to [facility] and was subsequently transferred to [facility] where after discussion with electrophysiology and cardiothoracic surgery device was explanted. Because she had epicardial leads placed for Bi V AICD in the past, it was decided to start her on doxycycline long-term by Infectious Disease. She is currently in a rehab facility. Only complaint she has is that she gets significant pain at site at the time did dressings are changed and the wound is cleaned out. She has wound VAC in place. 06/19/2023: She returns for follow-up. Her wound over the left chest wall has healed. She is complaining of significant dyspnea with activity. She is saying she is unable to do any significant activity inside the house. She has 12 stairs to go down to the sellar and she has to take her time in going up and is huffing and puffing when she reaches to talk. She had quite complex issue after the Bi V ICD generator was changed which eroded through the skin and eventually was removed. She had wound VAC in place and was not mobile. Previously she had not done well then she stopped exercising or doing any activities and had more dyspnea and fatigue. She is complaining of very mild edema at the right ankle only. She is saying that her weight has been stable and she has not gained any weight. She is thin and quite underweight at baseline. 10/02/2023: She returns for follow-up. She is due to see Dr. Troncoso next week at [facility]. She is saying she has been progressively short of breath over the last month to 2. She is having trouble going upstairs. She has orthopnea. She also has noticed lower extremity edema and clearly has 1 to 2+ ankle edema at this point. Blood pressure is elevated. She was previously put on b.i.d. Lasix but she could not tolerate it due to dizziness. She is currently taking 20 mg of Lasix. She also has been getting some epigastric discomfort which is a burning sensation after eating. 10/02/2023: She returns for follow-up. Over the last week her weight has gone down from 85.2 lb 282 lb. She is taking 40 mg of Lasix at this point. Blood pressure is still elevated. She is saying that she is still quite short of breath. On exam today she is also wheezy. She has known history of COPD but does not see pulmonology. She has not interested in seeing a chief optometry service. She is taking Anoro Ellipta and albuterol. She also is using albuterol inhalers. She said she has been coughing 2 over the last week or 2. 06/08/2024: She is here for follow-up. Her echocardiography in 01/02/2024 has shown ejection fraction of 40 45% which is significantly improved since she had the left bundle-branch area pacing. Clinically she has been doing well. She is saying her breathing has improved significantly. She has gained some weight she had some dietary indiscretions mostly in the last couple of days because she had a Thanksgiving democrat at her home. Her blood pressure is elevated. She has a home blood pressure cuff but it was a wrist cuff and mostly her blood pressures are recorded in 140s. She currently is in 160s systolic and manual blood pressure is similar. She was previously told to take losartan 50 mg twice a day but she said she can not tolerate it twice a day. She also has complaining that when she takes her medications in the morning she gets dizzy. [facility] Medical History CAD (coronary artery disease) Cardiomyopathy CHF (congestive heart failure) Essential hypertension Hyperlipidemia Hypothyroidism ICD (implantable cardioverter-defibrillator) in place (~2017) Personal history of nicotine dependence PVC (premature ventricular contraction) Surgical History History of pubovaginal sling History of carotid endarterectomy History of implantable cardiac defibrillator (ICD) History of hernia repair History of appendectomy History of tonsillectomy History of heart artery stent Family History Father CVD (cardiovascular disease) Obesity Mother CVD (cardiovascular disease) Diabetes Social History Alcohol intake: current Alcohol intake frequency: 0-2 drinks per day Alcohol type: wine Patient Tobacco Use Status: Former Tobacco user Tobacco use type: Cigarette Years Smoked: 50 +/- Review of Systems Const Denies chills, Denies fatigue, Denies fever(s), Denies frequent falls, Denies weakness, Denies weight gain and Denies weight loss ENT Denies dizziness Card Denies chest pain, Denies leg edema, Denies lightheadedness, Denies palpitations, Denies dyspnea and Denies dyspnea on exertion Resp Denies cough, Denies dyspnea and Denies dyspnea on exertion GI Denies hematochezia Musc Denies abnormal gait, Denies muscle weakness, Denies numbness, Denies radiating pain into limb and Denies tingling Neuro Denies abnormal gait, Denies dizziness, Denies frequent falls, Denies numbness, Denies tingling and Denies weakness Endo Denies fatigue and Denies palpitations Physical Exam Vital Signs: Last Vital Signs Pulse 96 06/08/24 12:57 BP 160/70 H 06/08/24 12:57 BMI result Body Mass Index 16.5 GENERAL APPEARANCE: Thin, frail lady. SOB NECK/THYROID: no carotid bruit, no jugular venous distention. HEART: no murmurs, regular rate and rhythm, S1, S2 normal. LUNGS: Clear to auscultation. ABDOMEN: normal, bowel sounds present, soft, nontender, nondistended. EXTREMITIES: Mild edema at ankles. PERIPHERAL PULSES: equal. NEUROLOGIC: nonfocal, , alert and oriented. Assessment & Plan Assessment & Plan (1) Chronic heart failure: Code(s): I50.9 - Heart failure, unspecified Category: Medical (2) Essential hypertension: Code(s): I10 - Essential (primary) hypertension Category: Medical Plan [age] year female who is here for follow-up. She has background history of hypertension and coronary artery disease. She had nonischemic cardiomyopathy and left bundle-branch block and previously had improvement in ejection fraction with CLOTH WASHER BACK TENDER. She had device extraction due to skin background and ejection fraction dropped to severe dysfunction. After discussion she underwent left bundle-branch area pacing and ejection fraction improved from severely reduced EF to 40 45%. Clinically she had a significant improvement. She has mild edema at the ankles and this is mostly due to dietary indiscretions. I have advised her that she should be very careful with salt intake. Her blood pressure is elevated. She was previously advised to take losartan 50 mg twice a day but she is saying that she could not tolerate it twice a day. Also when she takes her medications in the morning she feels dizzy. I have advi sed her that from tomorrow she should take 100 mg of losartan but take it separate from other medications probably by 5 or 06:00 o'clock in the evening. Hopefully she can tolerate the higher dose and we can improve her blood pressure. She will see us back in few months. Thank you for allowing me to participate in the care of your patient. Please feel free to contact me if you have any questions. Coding Level of Care Code Est Pt Level 4 (10791) Diagnoses Chronic heart failure I50.9 Essential hypertension I10
[2024-06-08 12:57] VITALS: BP 160/70; PULSE 96; BMI 16.5
== END 2024-06-08 13:25 | disposition home or self-care (01) ==
PROVIDERS: PCP Family Medicine; Visit Provider Internal Medicine Cardiovascular Disease
DX: I50.9 Heart failure, unspecified (principal); I10 Essential (primary) hypertension
CPT/HCPCS: 99214

== ENCOUNTER → 2024-06-08 12:52 | Outpatient (BNVA) | payer MEDICARE, BC, SELFPAY | PROVIDERS: PCP Family Medicine; Visit Provider Internal Medicine Cardiovascular Disease | DX: I11.0 Hypertensive heart disease with heart failure (principal); I50.9 Heart failure, unspecified; Z79.899 Other long term (current) drug therapy | CPT/HCPCS: 99212 ==

== ENCOUNTER → 2024-06-29 23:59 | Outpatient (BNV) | payer MEDICARE, BC, SELFPAY ==
--- NOTE | 2024-07-08 21:23 | A.OFFVIS_ITS ---
Intake Visit Reasons: Remote Device Check - [employer] Allergies No Known Allergies Allergy (Verified 06/19/23 11:09) [facility] Medical History CAD (coronary artery disease) Cardiomyopathy CHF (congestive heart failure) Essential hypertension Hyperlipidemia Hypothyroidism ICD (implantable cardioverter-defibrillator) in place (~2017) Personal history of nicotine dependence PVC (premature ventricular contraction) Surgical History History of pubovaginal sling History of carotid endarterectomy History of implantable cardiac defibrillator (ICD) History of hernia repair History of appendectomy History of tonsillectomy History of heart artery stent Family History Father CVD (cardiovascular disease) Obesity Mother CVD (cardiovascular disease) Diabetes Social History Alcohol intake: current Alcohol intake frequency: 0-2 drinks per day Alcohol type: wine Patient Tobacco Use Status: Former Tobacco user Tobacco use type: Cigarette Years Smoked: 50 +/- Office Procedures Cardiac Device Check Cardiac Device Check Details: PPM Good battery life V paced 99% No new alerts. 18049-GQ Cardiac Device Check, pacemaker dual lead Procedure code (CPT) selection complete Assessment & Plan Assessment & Plan (1) Chronic heart failure: Code(s): I50.9 - Heart failure, unspecified Category: Medical Plan: Coding Level of Care Code Procedure Only Diagnoses Chronic heart failure I50.9 CPT Codes Cardiac Device Check - Cardiac Device 2: 29895-PK Cardiac Device Check, pacemaker dual lead ([id number])
== END ==
PROVIDERS: PCP Family Medicine; Visit Provider Internal Medicine Cardiovascular Disease
DX: I50.9 Heart failure, unspecified (principal); Z95.0 Presence of cardiac pacemaker
CPT/HCPCS: 93294

== ENCOUNTER 2024-09-16 10:32 | Outpatient (AMB) | payer MEDICARE, BC, SELFPAY ==
--- NOTE | 2024-09-16 11:07 | MHC.OFFVIS ---
Vital Signs 09/16/24 11:09 Height 5 ft 3 in Weight 93 lb 0.561 oz BMI 16.5 BP 160/72 H Blood Pressure Location Rt brachial Position Sitting Pulse 84 Pulse Source Monitor Intake Visit Reasons: 3 mth f/up Intake Note: 3 mth f/up Gis Database Administrator Required: No Accompanied by: Sister Allergies No Known Allergies Allergy (Verified 06/19/23 11:09) Medication List - Last Reconciled 09/16/24 by Horace Mata MD albuterol sulfate 2.5 mg inhalation Q4-6H PRN albuterol sulfate 90 mcg/actuation 1 puff inhalation Q4H PRN aspirin (Adult Low Dose Aspirin) 81 mg PO DAILY atorvastatin 40 mg PO DAILY calcium carbonate (Calcium 600) 600 mg PO DAILY carvedilol 6.25 mg PO BID cyanocobalamin (vitamin B-12) 1,000 mcg PO DAILY fluticasone propionate 50 mcg/actuation 1 spray intranasal DAILY furosemide 40 mg PO DAILY isosorbide mononitrate ER 30 mg PO DAILY levothyroxine (Levoxyl) 50 mcg PO DAILY losartan 50 mg PO DAILY multivitamin 1 tab PO DAILY omeprazole 40 mg PO DAILY prednisone Take 2 tablets for 4 days then 1 tablet for 4 days orally daily; umeclidinium-vilanterol 62.5-25 mcg/actuation (Anoro Ellipta) 1 inh inhalation DAILY HPI Comments Details: 79-year-old pleasant female here for follow-up. 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 She was seen for perioperative risk assessment. She underwent surgery for uterine prolapse under local anesthesia/spinal because she was high risk for general anesthesia. She had an echocardiogram in July 2018 [facility] which showed recovery of her left ventricular ejection fraction which was normal. She recently was found to have a unequal blood pressures in both arms with a 40 mm difference between the left and right arms. She underwent CTA at [facility] which showed 90% stenosis at the origin of left subclavian artery. She has some vertigo at baseline. No clear subclavian steal symptoms. She is here for follow-up. She has shortness of breath which is worse than before. 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 Her blood pressure in the office is elevated. As mentioned above she has left subclavian stenosis and blood pressure in that arm is unreliable. Right arm blood pressures are elevated and we discussed about starting isosorbide in addition to her medications that she is taking. No orthopnea or PND. No significant edema. She is using her inhalers. We decided to add isosorbide mononitrate 30 mg once a day to her regimen. She is returning for follow-up after that. She is saying that her dyspnea is improved. Her blood pressure also appears to be better. Her EKG interestingly showing PVCs. She has no symptoms and is completely asymptomatic and has no palpitations. I advised her to increase the carvedilol but she said previously when she increase the carvedilol she could not sleep at night. She is undergoing a lot of stress because her has multiple myeloma and has not been doing well. Recent device interrogation has shown that her battery life is close to 3 months now and she is seeing thoracic surgery to have a generator changed. She was started on magnesium for hypomagnesemia but had significant diarrhea and she has stopped using magnesium at this point. She has no chest pain or significant shortness of breath. Her is undergoing chemotherapy for multiple myeloma. He has significant memory problems and she is quite involved in and stressed by his care. 03/04/2023: Returns for follow-up. She was referred to thoracic surgery and underwent generator change for Bi V AICD. She had operative side issues and unfortunately had skin breakdown with exposure of the underlying device. This was because of her being really underweight. She went to [facility] and was subsequently transferred to [facility] where after discussion with electrophysiology and cardiothoracic surgery device was explanted. Because she had epicardial leads placed for Bi V AICD in the past, it was decided to start her on doxycycline long-term by Infectious Disease. She is currently in a rehab facility. Only complaint she has is that she gets significant pain at site at the time did dressings are changed and the wound is cleaned out. She has wound VAC in place. 06/19/2023: She returns for follow-up. Her wound over the left chest wall has healed. She is complaining of significant dyspnea with activity. She is saying she is unable to do any significant activity inside the house. She has 12 stairs to go down to the sellar and she has to take her time in going up and is huffing and puffing when she reaches to talk. She had quite complex issue after the Bi V ICD generator was changed which eroded through the skin and eventually was removed. She had wound VAC in place and was not mobile. Previously she had not done well then she stopped exercising or doing any activities and had more dyspnea and fatigue. She is complaining of very mild edema at the right ankle only. She is saying that her weight has been stable and she has not gained any weight. She is thin and quite underweight at baseline. 10/02/2023: She returns for follow-up. She is due to see Dr. Troncoso next week at [facility]. She is saying she has been progressively short of breath over the last month to 2. She is having trouble going upstairs. She has orthopnea. She also has noticed lower extremity edema and clearly has 1 to 2+ ankle edema at this point. Blood pressure is elevated. She was previously put on b.i.d. Lasix but she could not tolerate it due to dizziness. She is currently taking 20 mg of Lasix. She also has been getting some epigastric discomfort which is a burning sensation after eating. 10/02/2023: She returns for follow-up. Over the last week her weight has gone down from 85.2 lb 282 lb. She is taking 40 mg of Lasix at this point. Blood pressure is still elevated. She is saying that she is still quite short of breath. On exam today she is also wheezy. She has known history of COPD but does not see pulmonology. She has not interested in seeing a industrial hire sales assistant. She is taking Anoro Ellipta and albuterol. She also is using albuterol inhalers. She said she has been coughing 2 over the last week or 2. 06/08/2024: She is here for follow-up. Her echocardiography in 01/02/2024 has shown ejection fraction of 40 45% which is significantly improved since she had the left bundle-branch area pacing. Clinically she has been doing well. She is saying her breathing has improved significantly. She has gained some weight she had some dietary indiscretions mostly in the last couple of days because she had a Thanksgiving green party at her home. Her blood pressure is elevated. She has a home blood pressure cuff but it was a wrist cuff and mostly her blood pressures are recorded in 140s. She currently is in 160s systolic and manual blood pressure is similar. She was previously told to take losartan 50 mg twice a day but she said she can not tolerate it twice a day. She also has complaining that when she takes her medications in the morning she gets dizzy. 09/16/24: She is here for follow-up. She has elevated blood pressures. On last visit we discussed about increasing losartan to 50 mg twice a day. She said she did not do that because she was worried her blood pressure will drop and she will get dizzy. No shortness of breath or any other concerns currently. [facility] Medical History CAD (coronary artery disease) Cardiomyopathy CHF (congestive heart failure) Essential hypertension Hyperlipidemia Hypothyroidism ICD (implantable cardioverter-defibrillator) in place (~2016) Personal history of nicotine dependence PVC (premature ventricular contraction) Surgical History History of pubovaginal sling History of carotid endarterectomy History of implantable cardiac defibrillator (ICD) History of hernia repair History of appendectomy History of tonsillectomy History of heart artery stent Family History Father CVD (cardiovascular disease) Obesity Mother CVD (cardiovascular disease) Diabetes Social History Alcohol intake: current Alcohol intake frequency: 0-2 drinks per day Alcohol type: wine Patient Tobacco Use Status: Former Tobacco user Tobacco use type: Cigarette Years Smoked: 50 +/- Review of Systems Const Denies chills, Denies fatigue, Denies fever(s), Denies frequent falls, Denies weakness, Denies weight gain and Denies weight loss ENT Denies dizziness Card Denies chest pain, Denies leg edema, Denies lightheadedness, Denies palpitations, Denies dyspnea and Denies dyspnea on exertion Resp Denies cough, Denies dyspnea and Denies dyspnea on exertion GI Denies hematochezia Musc Denies abnormal gait, Denies muscle weakness, Denies numbness, Denies radiating pain into limb and Denies tingling Neuro Denies abnormal gait, Denies dizziness, Denies frequent falls, Denies numbness, Denies tingling and Denies weakness Endo Denies fatigue and Denies palpitations Physical Exam Vital Signs: Last Vital Signs Pulse 84 09/16/24 11:09 BP 160/72 H 09/16/24 11:09 BMI result Body Mass Index 16.5 GENERAL APPEARANCE: Thin, frail lady. SOB NECK/THYROID: no carotid bruit, no jugular venous distention. HEART: no murmurs, regular rate and rhythm, S1, S2 normal. LUNGS: Clear to auscultation. ABDOMEN: normal, bowel sounds present, soft, nontender, nondistended. EXTREMITIES: Mild edema at ankles. PERIPHERAL PULSES: equal. NEUROLOGIC: nonfocal, , alert and oriented. Office Procedures EKG Details: Sinus rhythm 84 beats per minute, normal axis, V paced rhythm with QRS duration 120 milliseconds, QTC 486 milliseconds. [id number], Complete Assessment & Plan Assessment & Plan (1) Chronic heart failure: Code(s): I50.9 - Heart failure, unspecified Category: Medical (2) Essential hypertension: Code(s): I10 - Essential (primary) hypertension Category: Medical Plan 79-year-old female who is here for follow-up. She has background history of nonischemic cardiomyopathy related with left bundle-branch block. This improved with left bundle-branch area pacing. Clinically euvolemic and doing okay. Her blood pressure is significantly elevated again. We discussed last time to increase the losartan to 50 mg twice a day but she has not done that. We discussed that she can take losartan once a day 100 mg separately around noon time. She will try to do that. She was concerned that when she takes her medications currently she gets dizzy and was worried that increasing the medication may make her more dizzy. I have advised her just to take losartan separately from other medications at 100 mg approximately at noon time. She will try to take an extra dose of 50 mg today and if she can tolerate it then she we will increase the dose to 100 mg tomorrow. We will see her back in couple of months for follow-up. Thank you for allowing me to participate in the care of your patient. Please feel free to contact me if you have any questions. Coding Level of Care Code Est Pt Level 4 (58086) Diagnoses Chronic heart failure I50.9 Essential hypertension I10 CPT Codes EKG - CPT: 95146-[id number], Complete ([id number])
[2024-09-16 11:09] VITALS: BP 160/72; PULSE 84; BMI 16.5
--- OUTSIDE RECORDS SUMMARY | 2024-09-16 12:26 | XMS_ITS ---
Author Organization [facility] Address Unknown Problems Problem Status Start Date End Date MUSCLE WASTING AND ATROPHY, NOT ELSEWHERE CLASSIFIED, MULTIPLE SITES (Primary) (M62.59 - ICD-10-CM) ACTIVE 02/27/2023 UNSPECIFIED OPEN WOUND OF UN SPECIFIED FRONT WALL OF THORAX WITHOUT PENETRATION INTO THORACIC CAVITY, SUBSEQUENT ENCOUNTER (S21.109D - ICD-10-CM) ACTIVE 02/27/2023 ENCOUNTER FOR SURGICAL AFTER CARE FOLLOWING SURGERY ON THE RESPIRATORY SYSTEM (Z48.813 - ICD-10-CM) ACTIVE 02/27/2023 INFECTION AND INFLAMMATORY R EACTION DUE TO OTHER CARDIAC AND VASCULAR DEVICES, IMPLANTS AND GRAFTS, SUBSEQUENT ENCOUNTER (T82.7XXD - ICD-10-CM) ACTIVE 02/27/2023 DISRUPTION OF WOUND, UNSPECI FIED, SUBSEQUENT ENCOUNTER (T81.30XD - ICD-10-CM) ACTIVE 02/27/2023 CHRONIC OBSTRUCTIVE PULMONAR Y DISEASE, UNSPECIFIED (J44.9 - ICD-10-CM) ACTIVE 03/01/2023 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 with home health services [facility] 3 07:22 pm EDT - 3 05:00 pm EDT Immunizations Vaccine Date Tetanus 08/08/2015 12:00 am EST (Shingles) Vaccine 12/07/2011 12:00 am EDT PCV13 (Pneumococcal Conjugate)Vaccine 12:00 am EDT PPSV23 (Previous Pneumococcal Polysaccha ride)Vaccine 03/28/2011 12:00 am EDT SARS-COV-2 (COVID-19) 10/13/2020 12:00 a m EDT SARS-COV-2 (COVID-19) 09/22/2020 12:00 a m EST Pfizer Covid-19 Booster (SARS-COV-2) vac cine 06/04/2021 12:00 am EST Social History
--- OUTSIDE RECORDS SUMMARY | 2024-09-16 12:26 | XMS_ITS | Clinical Summary ---
Author Organization [facility] Address [address] [place] [address] Care Team Providers Care Data Processing Control Clerk Name Role Phone Efrain Haile MD Primary Care Provider [phone] Surgical History Surgery Date Site/Laterality Comments HERNIA REPAIR PROCEDURE: HISTORICAL HERNIA REPAIR/UMB OTHER SURGICAL HISTORY PROCEDURE: MN OPEN/PERQ PLACEMENT INTRAVASCULAR STENT INITIAL; COMMENT: heart artery stent TONSILLECTOMY PROCEDURE: HISTORICAL TONSILLECTOMY APPENDECTOMY PROCEDURE: HISTORICAL APPENDECTOMY PACEMAKER IMPLANT 01/24/2023 PROCEDURE: HISTORICAL PACEMAKER; COMMENT: w Dr. Alva Medical History Medical History Date Comments Cardiomyopathy (CMS/HCC) DX:Card iomyopathy (HCC) Benign paroxysmal vertigo of both ears DX:Benign paroxysmal vertigo of both ears Pacemaker DX:Pacemaker History of hernia repair DX:Hist ory of hernia repair Status post carotid surgery DX:S tatus post carotid surgery Essential (primary) hypertension DX:Essential (primary) hypertension Family History Medical History Relation Name Comments Diabetes Father Other: Cardiovascular Disease Father Diabetes Mother Other: Cardiovascular Disease Mother Relation Name Status Comments Father Mother Social History Tobacco Use Types Packs/Day Years Used Date Smoking Tobacco: Former Cigarettes Q uit: 07/15/2014 Smokeless Tobacco: Never Comments Unknown Sex and Gender Information Value Date Recorded Sex Assigned at Not on file Legal Sex Female 9:06 PM EST Gender Identity Not on file Sexual Orientation Not on file Obstetrics History Plan of Treatment Health Maintenance Due Date Last Done Comments DTaP,Tdap,and Td Vaccines (1 - Tdap) 1965 Pneumococcal Vaccine: 50+ Ye ars (1 of 1 - PCV) 1996 Zoster Vaccines (1 of 2) 1996 RSV Immunization Patients 60 + Years Old (1 - 1-dose 75+ series) 2021 Depression Screening 08/09/2023 Falls Risk Assessment 08/09/2023 Hepatitis C Screening 08/09/2023 Osteoporosis Screening (Bone Density Screening) 08/09/2023 Social Influencers of Health Screening 08/09/2023 COVID-19 Vaccine (2023-2 5 season) 2024 Influenza Vaccine (#1) 2024 HIB Vaccines Aged Out No longer eligi ble based on patient's age to complete this topic HPV Vaccines Aged Out No longer eligi ble based on patient's age to complete this topic Hepatitis A Vaccines Aged Out No long er eligible based on patient's age to complete this topic Hepatitis B Vaccines Aged Out No long er eligible based on patient's age to complete this topic IPV Vaccines Aged Out No longer eligi ble based on patient's age to complete this topic MMR Vaccines Aged Out No longer eligi ble based on patient's age to complete this topic Meningococcal ACWY Vaccine Aged Out N o longer eligible based on patient's age to complete this topic Meningococcal B Vacine Aged Out No lo nger eligible based on patient's age to complete this topic RSV Immunization Patients Un rigoberto 20 months Aged Out No longer eligible b ased on patient's age to complete this topic Varicella Vaccines Aged Out No longer eligible based on patient's age to complete this topic Care Teams Data Processing Control Clerk Relationship Specialty Start Date End Date Efrain Haile MD [address] [place] [address] PCP - General 07/15/10
--- OUTSIDE RECORDS SUMMARY | 2024-09-16 12:27 | XMS_ITS | Data Portability ---
Author Organization [facility], [facility] Address [address] [place] [address] Care Team Providers Care Boiling House Hand Name Role Phone LOREE KELLY Primary Care Provide r ARLENE VELA Gis Application Developer JUSTICE GANNON Clinical Researcher MAUDE CHRISTINE Pst Manager ARLENE VELA Urogynecologist NEHA MEEK Clinical Researcher MAUDE DOVE OTHER VALERI GIBBS OTHER [phone] NEHA WITT Clinical Researcher Assessment Encounter Date Assessment Date Assessment LastModified by Organization Details LastModified Time 10/25/2023 10/25/2023 We completed your Medicare Wellness exam today. This was an opportunity to assess your overall well being including your ability to care for yourself, your mobility, memory, mental health, as well as your safety. With advancing age, it is important to assign someone in your life as your Health Care Proxy (HCP). This person should know what is important to you and what your wishes are for medical procedures if you cannot communicate your wishes yourself (severe illness, unconsciousness ). We discussed having a completed Health Care Proxy form today. In addition, today we started a conversation about your End of Life wishes. These conversations will continue over the years. Please consider reading the book, Being Mortal by Victor Manuel Yen to help frame future conversations. We discussed the purpose of a MOLST form (Medical Orders for Life Sustaining Treatment) and completed this form if appropriate per your wishes. Vision and Hearing are senses that are critically important as we age. When impaired, they can contribute to memory loss, falls, and make it harder to drive, talk to family and friends, and engage in the world. Please get your vision checked yearly and your hearing checked when you start to notice hearing loss. We discussed approaches to lowering your risk of heart disease and stroke . Your blood pressure is at goal. Your cholesterol is at goal. We discussed cancer screening you may need as well as vaccines to prevent infections. Colon Cancer : Your risk of colon cancer is . Due for colorectal screening:not needed due to age. If you are not planning to have a colonoscopy please screen with stool cards yearly. Breast Cancer : Breast Cancer Screening (mammography). Next mammogram due: not needed. Cervical Cancer Screening (pap test). Next pap due: not needed. Prostate Cancer : PSA testing for ages 55-69 risks and benefits discussed . Influenza Vaccine : Flu shot yearly. Tetanus Vaccine : Every 10 years. Due: 2025. The following vaccines are available from your pharmacy: Pneumonia Vaccine : PCV20: once after age 65. Shingles Vaccine : 2 shots after age 50. Covid Vaccine : Make sure you have received the most up to date covid vaccine. Your personal health goal for the year is: [email or web address] Not available 10/27/2023 11:27:07 Plan of Treatment Reminders Order Date Submit Date Provider Last Modified By Organization Details Last Modified Time Details Appointments Ultras ound Breast , Diagno stic 2024 09:00A M [facility] Ultrasound Not available Not available Not available Lab fecal occult blood, immuno assay, stool - Lab- Create annual order bo baker [id number]-[id number] BT order set. 2023 024 [facility], [address] [place] [address], [address], 06/15/2024 16:14:55 Referral None record ed. Procedures None record ed. Surgeries None record ed. Imaging US, breast - 2nd Look Consul t/Diag Mammo/ US Breast /Guide d Asp/Br east Bx/Cli p Placem ent, as clinic raciel sun. mass noted 1 week ago, 1 cm firm non movabl e mass 3 o'cloc k locati on L breast latera l to mid axilll rolando line 2023 024 [facility] (Imaging), [address], [place], [address], 06/01/2024 14:58:46 MAMMO, diagno stic, tomosy nthesi s, unilat eral - 2nd Look Consul t/Diag Mammo/ US Breast /Guide d Asp/Br east Bx/Cli p Placem ent, as clinic raciel sun.ma ss noted 1 week ago, 1 cm firm non movabl e mass 3 o'cloc k locati on L breast latera l to mid axilll rolando line 2023 [facility] (Imaging), [address], [place], [address], 05/26/2024 10:26:10 Medication Orders Treleg y Ellipt a 100 mcg-62 .5 mcg-25 mcg powder for inhala tion 2023 [facility], [address] [place], [address], 01/06/2024 12:46:26 albute rol sulfat e 2.5 mg/3 mL (0.083 %) soluti on for nebuli zation 2023 [facility], [address] [place], [address], 01/06/2024 17:55:36 Treleg y Ellipt a 100 mcg-62 .5 mcg-25 mcg powder for inhala tion 2023 [facility] #[facility], [address] [place], [address], 12/16/2023 15:01:52 losart an 50 mg tablet 2023 [facility], [address] [place], [address], 10/25/2023 11:36:33 Patient TargetsNo targets recorded. Patient Instructions Encounter Date Encounter Id Patient Instructions Last Modified By Organization Details Last Modified Time 05/17/2023 [id number] CCM: The provider and patient discussed the Chronic Care Management program, including the services provided, and any fees associated with them. Patient DECLINES Not available 05/19/2023 19:51:56 10/25/2023 [id number] After a discussion of treatment and medication options, which included consideration of the best practices in medicine, a medical plan was provided. The patient's opinions and concerns were included in this treatment plan and goal. * Maintain 1200 mg of calcium from food sources daily, * Take vitamin D 2130-7385 units daily to help absorption of calcium into your bones * Use sunblock consistently * Review the website: Wikirin to get more information on the Mediterranean diet - a heart healthy eating plan * Review this website: https://www.I Had Cancer/all- vmvwo-wfrv-zoi-c heap for healthy inexpensive meals. * Immunizations up to date. Discussed Prevnar 20 pt will go to [facility]. * The current guidelines from the [place] [employer] is moderate aerobic physical activity about 30 minutes for 5 days of the week. * Pap smear not indicated due to age. * Mammogram guidelines discussed, no family history or personal history of abnormal mammograms, Mammogram normal in 2016. Declines. * Your bone density is osteopenia in 2017. Declines. * Prefers annual stool cards stool kit given. * Health care proxy discussed - will need updating, however pt didn't have her son's address. Pt will mail it or bring it back. * MOLST form discussed. No changes. * Wellness Visit in 1 year * See your dentist at least twice a year. * Get your vision checked at least once every 2 years. * Discussed labs Saturated fat is a bad kind of fat. For a heart healthy diet, 16 grams of saturated fat per day for women and 20 grams of saturated fat per day for men. Offered lung cancer screening: >20 pack years; current smoker or quit less than 15 years, age 50-80 pt smoked for 50 yrs at 10 cig/day - 25 pack year; quit 2014, declines to do LDCT lis Not available 10/27/2023 11:30:07 01/06/2024 [id number] [facility] serves as the focal point for all health care services the patient needs. lis Not available 01/06/2024 17:56:20 04/27/2024 [id number] CCM: The provider and patient discussed the Chronic Care Management program, including the services provided, and any fees associated with them. lis Not available 04/27/2024 11:20:36 Reason for Referral None Reported. Results Created Date Observation Date Name Description Value Unit Range Abnormal Flag Note LastModifiedBy Organization Detail LastModifiedTime 05/17/20 23 05/20/2023 TSH TSH 0.36 uIU/m L 0.50-6 .00 low The Ameri can Colle ge of Endoc rinol ogy and Ameri can Thyro id Assoc iatio n recom mend goal TSH value s betwe en 0.4-4 .0 mIU/m L. Not Available [address], [address], 05/20/2023 12:42:06 10/18/19 24 10/18/2023 COMP. METAB OLIC PANEL glucose 87 mg/dL 70-100 Not Available [address], [address], 10/18/2023 09:26:31 10/18/19 24 10/18/2023 COMP. METAB OLIC PANEL BUN 16 mg/dL 7-18 Not Available [address], [address], 10/18/2023 09:26:31 10/18/19 24 10/18/2023 COMP. METAB OLIC PANEL creatinine 0.8 mg/dL 0.8-1. 3 Not Available [address], [address], 10/18/2023 09:26:31 10/18/19 24 10/18/2023 COMP. METAB OLIC PANEL B/C 20.0 ratio Not Available [address], [address], 10/18/2023 09:26:31 10/18/19 24 10/18/2023 COMP. METAB OLIC PANEL GFR >=60ML /MIN mL/mi n normal >=60m L/min - Jada l or midly reduc ed <60mL /min- Decre ased kidne y funct ion <15mL /min - Kidne y failu re [facility] calcu lates estim ated Glome rular Filtr ation Rate (eGFR ) using the Chron ic Kidne y Disea se Epide miolo gy Colla borat ion (CKD- EPI) Equat ion (Romiee r et. al 2020) as recom luís d by the Natio nal Kidne y Found ation . eGFR is based on age, serum creat inine , and sex. CKD-E PI does not calcu late eGFR by race, does not apply to child keshawn (age <18 years ), and shoul d not be used in pregn arsenio. Not Available [address], [address], 10/18/2023 09:26:31 10/18/1910/18/2023 COMP. METAB OLIC PANEL sodium 138 mmol/ L 136-14 5 Not Available [address], [address], 10/18/2023 09:26:31 10/18/1910/18/2023 COMP. METAB OLIC PANEL potassium 4.8 mmol/ L 3.5-5. 1 Not Available [address], [address], 10/18/2023 09:26:31 10/18/1910/18/2023 COMP. METAB OLIC PANEL chloride 99 mmol/ L 96-107 Not Available [address], [address], 10/18/2023 09:26:31 10/18/19 24 10/18/2023 COMP. METAB OLIC PANEL anion gap 7.0 5.0-15 .0 Not Available [address], [address], 10/18/2023 09:26:31 10/18/19 24 10/18/2023 COMP. METAB OLIC PANEL CO2 32 mmol/ L 21-32 Not Available [address], [address], 10/18/2023 09:26:31 10/18/19 24 10/18/2023 COMP. METAB OLIC PANEL calcium 9.8 mg/dL 8.5-10 .3 Not Available [address], [address], 10/18/2023 09:26:31 10/18/19 24 10/18/2023 COMP. METAB OLIC PANEL total protein 6.8 g/dL 6.4-8. 2 Not Available [address], [address], 10/18/2023 09:26:31 10/18/19 24 10/18/2023 COMP. METAB OLIC PANEL albumin 3.8 g/dL 3.4-5. 0 Not Available [address], [address], 10/18/2023 09:26:31 10/18/19 24 10/18/2023 COMP. METAB OLIC PANEL globulin 3.0 g/dL Not Available [address], [address], 10/18/2023 09:26:31 10/18/19 24 10/18/2023 COMP. METAB OLIC PANEL A/G 1.3 ratio 0.8-2. 0 Not Available [address], [address], 10/18/2023 09:26:31 10/18/19 24 10/18/2023 COMP. METAB OLIC PANEL total bilirubin 0.60 mg/dL 0.00-1 .00 Not Available [address], [address], 10/18/2023 09:26:31 10/18/19 24 10/18/2023 COMP. METAB OLIC PANEL AST 22 U/L 0-37 Not Available [address], [address], 10/18/2023 09:26:31 10/18/19 24 10/18/2023 COMP. METAB OLIC PANEL ALT 32 U/L 6-63 Not Available [address], [address], 10/18/2023 09:26:31 10/18/19 24 10/18/2023 COMP. METAB OLIC PANEL alk. phos. 65 U/L 50-136 Not Available [address], [address], 10/18/2023 09:26:31 10/18/19 24 10/18/2023 HGB A1C hemoglobin A1C 5.7 % 4.8-6. 0 Goal: <7% in Patie nts with Diabe cintia An A1c betwe en 5.7-6 .4% is ident ified as pre-d iabet es and sugge sts risk for progr essio n to diabe cintia Two a1c value s of 6.5% or highe r is consi stent with a diagn osis of diabe cintia but may need furth er confi rmati on Not Available [address], [address], 10/18/2023 09:36:16 10/18/19 24 10/18/2023 HGB A1C estimated average glucose 116.9 mg/dL Not Available [address], [address], 10/18/2023 09:36:16 10/18/19 24 10/18/2023 LIPID PANEL cholesterol 186 mg/dL <200 mg/dl Agnes able 200-2 39 mg/dl Borde rline High >240 mg/dl High Not Available [address], [address], 10/18/2023 10:42:44 10/18/19 24 10/18/2023 LIPID PANEL triglyceride s 46 mg/dL <150 mg/dL Jada l 150-1 99 mg/dL Borde rline High 200-4 99 mg/dL High >500 mg/dL Very High Not Available [address], [address], 10/18/2023 10:42:44 10/18/19 24 10/18/2023 LIPID PANEL direct HDL 118 mg/dL <40 mg/dl - Major Risk for CHD >60 mg/dl - Negat oliva Risk for CHD Not Available [address], [address], 10/18/2023 10:42:44 10/18/19 24 10/18/2023 LDL - CALCU LATED LDL - calculated 58.8 RISK CATEG ORY LDL GOAL _ CHD or CHD Risk Equiv alent s <100 mg/dl (10-y ear risk >20%) 2+ Risk Facto rs <130 mg/dl (10-y ear risk <= 20%) 0-1 Risk Facto r??? <160 mg/dl ??? Almos t all peopl e with 0-1 risk facto r have a 10 year risk <10%, thus 10 year risk asses ment in peopl e with 0-1 risk facto r is not moustapha garrett. Not Available [address], [address], 10/18/2023 10:42:45 10/18/19 24 10/18/2023 TSH TSH 0.93 uIU/m L 0.50-6 .00 The Ameri can Colle ge of Endoc rinol ogy and Ameri can Thyro id Assoc iatio n recom mend goal TSH value s betwe en 0.4-4 .0 mIU/m L. Not Available [address], [address], 10/18/2023 14:03:30 04/22/20 24 04/22/2024 BASIC METAB OLIC PANEL glucose 88 mg/dL 70-100 Not Available [address], [address], 04/22/2024 14:14:00 04/22/2004/22/2024 BASIC METAB OLIC PANEL BUN 10 mg/dL 7-18 Not Available [address], [address], 04/22/2024 14:14:00 04/22/2004/22/2024 BASIC METAB OLIC PANEL creatinine 0.7 mg/dL 0.8-1. 3 low Not Available [address], [address], 04/22/2024 14:14:00 04/22/2004/22/2024 BASIC METAB OLIC PANEL B/C 14.3 ratio Not Available [address], [address], 04/22/2024 14:14:00 04/22/2004/22/2024 BASIC METAB OLIC PANEL GFR >=60ML /MIN mL/mi n normal >=60m L/min - Jada l or midly reduc ed <60mL /min- Decre ased kidne y funct ion <15mL /min - Kidne y failu re [facility] calcu lates estim ated Glome rular Filtr ation Rate (eGFR ) using the Chron ic Kidne y Disea se Epide miolo gy Colla borat ion (CKD- EPI) Equat ion (Clarita r et. al 2020) as recom luís d by the Natio nal Kidne y Found ation . eGFR is based on age, serum creat inine , and sex. CKD-E PI does not calcu late eGFR by race, does not apply to child keshawn (age <18 years ), and shoul d not be used in pregn arsenio. Not Available [address], [address], 04/22/2024 14:14:00 04/22/2004/22/2024 BASIC METAB OLIC PANEL sodium 137 mmol/ L 136-14 5 Not Available [address], [address], 04/22/2024 14:14:00 04/22/20 24 04/22/2024 BASIC METAB OLIC PANEL potassium 4.4 mmol/ L 3.5-5. 1 Not Available [address], [address], 04/22/2024 14:14:00 04/22/20 24 04/22/2024 BASIC METAB OLIC PANEL chloride 99 mmol/ L 96-107 Not Available [address], [address], 04/22/2024 14:14:00 04/22/2004/22/2024 BASIC METAB OLIC PANEL anion gap 10.0 5.0-15 .0 Not Available [address], [address], 04/22/2024 14:14:00 04/22/20 24 04/22/2024 BASIC METAB OLIC PANEL CO2 28 mmol/ L 21-32 Not Available [address], [address], 04/22/2024 14:14:00 04/22/20 24 04/22/2024 BASIC METAB OLIC PANEL calcium 9.8 mg/dL 8.5-10 .3 Not Available [address], [address], 04/22/2024 14:14:00 06/02/20 24 06/02/2024 US, breas t US, BREAST , LEFT, MAMMO, DIAG, MELISSA, BILAT: 2023 BI-RAD S: 3 CLINIC AL: 79-yea r old Female for Bilate ral Diagno stic Mammog amanda and Left Diagno stic Breast [facility] 2.0%. No person al or first- degree family histor y of breast cancer . The patien t report s a palpab le abnorm ality (3 months ) in the left breast . PRIOR EXAMS: Multip le prior examin ations back throug h 2010. MAMMOG MIRYAM TECHNI QUE 3D mammog miryam (tomos ynthes is) and 2D mammog miryam images (C-vie w or digita l) are genera dino. Images review ed with a CAD system . ULTRAS OUND TECHNI QUE: Real-t fareed ultras ound exam was perfor med focuse d to the area of clinic al and/or imagin g concer n. DENSIT Y D. The breast s are extrem polly dense, which lowers the sensit ivity of mammog miryam. MAMMOG MIRYAM FINDIN GS Bilate ral: No suspic ious mass, asymme try, microc alcifi cation , or other abnorm ality is seen. Typica lly-be nign vascul ar calcif icatio ns noted. ULTRAS OUND FINDIN GS Left: Outer at 2:30: There is a 1.3 x 0.9 x 5.3 cm band of hypoec hoic materi al in the latera l left breast . There is no internet marketing assistant al vascul arity. There are hazy internet marketing assistant al echoes . This tissue is somewh at artificial limb maker ior and may be iatrog enic in origin . It may repres ent a seroma with debris . A follow -up ultras ound is recomm ended in 6 months . CONCLU YESIKA RightN o eviden ce of malign arsenio with benign findin gs. LeftPr obably Benign with likeli cardenas of malign arsenio 2% or less. RECOMM ENDATI ONS Left: Outer at 2:30Si x month follow up with diagno stic ultras ound. COMMEN TS: The above findin gs and recomm endati ons were discus sed with the patien t at the time of the exam. ADMINI STRATI VE: A lay summar y was mailed to your patien t indica colleeng the result s and recomm endati ons for follow -up. OVERAL L ASSESS MENT CATEGO RY BI-RAD S-3: Probab ly Benign . ELECTR ONICAL LY SIGNED : Emma Garcia ms, M.D. on 2023 at 11:18: 10 AM Alecia velez Physic lissette: Emma rocha [facility] (Imaging) [address], [place], [address], 06/08/2024 20:01:43 06/02/20 24 06/02/2024 MAMMO , diagn ostic , tomos ynthe sis, bilat eral US, BREAST , LEFT, MAMMO, DIAG, MELISSA, BILAT: 2023 BI-RAD S: 3 CLINIC AL: 79-yea r old Female for Bilate ral Diagno stic Mammog amanda and Left Diagno stic Breast [facility] risk of 2.0%. No person al or first- degree family histor y of breast cancer . The patien t report s a palpab le abnorm ality (3 months ) in the left breast . PRIOR EXAMS: Multip le prior examin ations back throug h 2010. MAMMOG MIRYAM TECHNI QUE 3D mammog miryam (tomos ynthes is) and 2D mammog miryam images (C-vie w or digita l) are genera dino. Images review ed with a CAD system . ULTRAS OUND TECHNI QUE: Real-t fareed ultras ound exam was perfor med focuse d to the area of clinic al and/or imagin g concer n. DENSIT Y D. The breast s are extrem polly dense, which lowers the sensit ivity of mammog miryam. MAMMOG MIRYAM FINDIN GS Bilate ral: No suspic ious mass, asymme try, microc alcifi cation , or other abnorm ality is seen. Typica lly-be nign vascul ar calcif icatio ns noted. ULTRAS OUND FINDIN GS Left: Outer at 2:30: There is a 1.3 x 0.9 x 5.3 cm band of hypoec hoic materi al in the latera l left breast . There is no internet marketing assistant al vascul arity. There are hazy internet marketing assistant al echoes . This tissue is somewh at artificial limb maker ior and may be iatrog enic in origin . It may repres ent a seroma with debris . A follow -up ultras ound is recomm ended in 6 months . CONCLU YESIKA RightN o eviden ce of malign arsenio with benign findin gs. LeftPr obably Benign with likeli cardenas of malign arsenio 2% or less. RECOMM ENDATI ONS Left: Outer at 2:30Si x month follow up with diagno stic ultras ound. COMMEN TS: The above findin gs and recomm endati ons were discus sed with the patien t at the time of the exam. ADMINI STRATI VE: A lay summar y was mailed to your patien t indica ting the result s and recomm endati ons for follow -up. OVERAL L ASSESS MENT CATEGO RY BI-RAD S-3: Probab ly Benign . ELECTR ONICAL LY SIGNED : Emma Garcia ms, M.D. on 2023 at 11:18: 10 AM Alecia velez Physic lissette: [facility] [address] [place], [address], 06/08/2024 20:01:13 Result Notes None recorded. Problems Name Problem SNOMED Code Status Onset Date Resolution Date Notes Provider Name and Address Organization Details Recorded Time Arteriti s 63017353 Active 2011 Efrain Haile MD [address] [place] [address] [place], [address], [facility] 6 17:39:52 Coronary arterios clerosis 46681398 Active 2013 Efrain Haile MD [address] [place] [address] [place], [address], [facility] 6 17:39:52 Congesti ve heart failure 37438261 Completed 201306/24/2018 Removal Reason: revised MD [place], [address], [facility] 8 20:49:18 Ischemic heart disease 542078958 Active MD [place], [address], [facility] 6 17:39:52 Carotid artery stenosis 64120622 Completed 201406/24/2018 Removal Reason: revised MD [place], [address], [facility] 8 20:49:04 Acute exacerba tion of chronic obstruct oliva pulmonar y disease 614107023 Completed 09/03/2017 MD [place], [address], [facility] 8 09:38:03 Uterine prolapse 29634174 Active 2015 MD [place], [address], [facility] 6 17:39:52 Chronic obstruct oliva pulmonar y disease 49633273 Active 2016 Exacerba tion per d/c summary [facility] ER 12/19/21, possible viral bronchit is Melissa borrego RN [facility] 2 10:20:38 Cardiomy opathy 08316004 Completed 201608/19/2021 Removal Reason: revised to specific CM MD [place], [address], [facility] 2 08:10:17 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 46419752007 104 Active 2017 Loree Fermin MD [address] [place] [address] [place], [address], [facility] 2 05:17:04 History of carotid endarter ectomy 623952747 Active 2017 Loree Fermin MD [address] [place] [address] [place], [address], [facility] 8 20:49:50 Left bundle branch block 82180956 Active 2017 MD [place], [address], [facility] 8 20:49:51 Systolic heart failure 283047188 Active 2017 MD [place] [address], [facility] 8 20:49:54 Stenosis of left subclavi an artery 69757095036 104595 Active 2018 MD [place], [address], [facility] 2 05:17:04 Hypothyr oidism 00044094 Active 2018 MD [place] [address], [facility] 2 05:17:04 Essentia l hyperten yesika 91814430 Active 2019 MD [place] [address], [facility] 2 05:17:04 Atherosc lerosis of coronary artery without angina pectoris 72627105901 4103 Active 2020 MD [place], [address], [facility] 1 08:35:50 Nonische mathew congesti ve cardiomy opathy 45858142780 4 Active 2021 Loree Fermin MD [address] [place] [address] [place], [address], [facility] 2 08:10:03 Hyponatr emia 64257759 Active 2021 MD [place] [address], [facility] 2 16:09:00 Hypergly cemia 35887407 Active 2021 MD [place] [address], [facility] 2 16:16:58 Chronic hypoxemi c respirat ory failure 015755208 Active 2021 MD [place] [address], [facility] 2 16:53:17 Secondar y pulmonar y hyperten yesika 32095773 Active 2021 Loree Fermin MD [address] [place] [address], [place], [address], [facility] 2 09:41:16 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 3 09:33:06 Malfunct ion of cardiac pacemake r 855196697 Active 2022 [facility] D/C Veronica Ringer null, [facility] 3 09:33:24 Open wound of chest wall 436653949 Active 2022 [facility] Veronica Ringer null, [facility] 3 09:33:41 Wound dehiscen ce 925171569 Active 2022 [facility] Veronica Ringer null, [facility] 3 09:33:58 Dyspnea 338430993 Active 2022 [facility] Veronica Ringer null, [facility] 3 09:34:30 Pain 69643494 Active 2022 [facility] Veronica Ringer null, 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 3 09:45:37 Acute congesti ve heart failure 88685796 Active 2022 [facility] Veronica Ringer null, [facility] 3 09:45:59 Long-ter m drug therapy Active 2022 lifelong doxycycl ine, pt case #[id number] 4 Loree Fermin MD [address] [place] [address], [place], [address], [facility] 3 16:59:44 Moderate protein- calorie malnutri tion (weight for age 60-74 percent of standard ) 889561072 Active 2023 [place], [address], [facility] 4 11:21:43 Ischemic congesti ve cardiomy opathy 536032541 Active 2023 Loree Fermin MD [facility] [place], [address], [facility] 4 11:28:34 Senile purpura 64509768 Active 2023 Loree Fermin MD [facility] [place], [address], [facility] 4 17:54:44 Mixed hyperlip idemia 242305299 Active 2007 [place], [address], [facility] 6 17:39:52 Disorder of skeletal system 67419176 Completed 200606/03/2013 [place], [address], [facility] 6 17:39:52 Precordi al pain 97382106 Completed 200607/30/2011 [place], [address], [facility] 6 17:39:52 Cardiova scular system problem 378484915 Completed 200607/30/2011 Efrain Haile MD [facility] [place], [address], [facility] 6 17:39:52 Lateral epicondy litis 728088470 Completed 200807/30/2011 [place], [address], [facility] 6 17:39:52 Osteopor osis 50433884 Completed 200807/30/2011 [place], [address], [facility] 6 17:39:52 Elevated blood-pr essure reading without diagnosi s of hyperten yesika 268156791 Completed 200607/30/2011 Efrain Haile MD [address] [place], [place] [address], [address], [facility] 6 17:39:52 Acute cystitis 84539262 Completed 200007/30/2011 Efrain Haile MD [address] [place], [place] [address], [address], [facility] 6 17:39:52 Benign essentia l hyperten yesika 3330378 Completed 200601/01/2020 Removal Reason: revised Loree Fermin MD [address] [place], [place] [address], [address], [facility] 0 13:58:17 Tobacco user [id number] Completed 200709/03/2017 Efrain Haile MD [address] [place], [place] [address], [address], [facility] 8 09:37:57 Lymphade nopathy 91912712 Completed 06/03/2013 Efrain Haile MD [address] [place], [place] [address], [address], [facility] 6 17:39:52 Problem Notes None recorded. Procedures Surgical History Date Name Laterality Status Provider Name and Address Organization Details Recorded Time 01/06/20 24 [id number] completed Loree Fermin MD [address] [place] [address], [phone], [facility] 01/06/2024 17:56:20 12/16/19 24 Oxygen Administration completed Janet Galan LPN [facility] 12/16/2023 14:45:17 10/25/19 24 Medicare Wellness Visit completed Shonna Chun MA [facility] 10/25/2023 09:52:25 03/21/20 23 Post hospital/SNF follow-up/Transiti onal Care completed Shonna Chun MA [facility] 03/21/2023 09:05:37 02/23/20 23 Other (specify) completed Loree Fermin MD [address] [place] [address], [phone], [facility] 03/18/2023 18:13:24 10/24/19 23 Medicare Wellness Visit completed Shonna Chun MA [facility] 10/23/2022 09:04:33 10/24/19 23 Oxygen Administration completed Eva Martinez RN [facility] 10/23/2022 13:30:28 12/28/19 22 Oxygen - Order completed Adeline Marie RN [facility] 12/27/2021 16:47:38 09/15/19 22 Oxygen - Order completed Shonna Chun MA [facility] 09/14/2021 12:12:12 07/21/19 21 Medicare Wellness Visit completed [facility] 07/21/2020 13:31:27 07/21/19 21 COPD Screening completed [facility] 07/21/2020 13:41:53 07/21/19 21 prevention-cardiov ascular risk reduction counseling completed [facility] 07/21/2020 13:31:27 07/21/19 21 prevention-annual alcohol misuse screening completed [facility] 07/21/2020 13:31:27 07/21/19 21 Advanced Care Planning completed Loree Fermin MD [address] [place] [address], [phone], [facility] 07/21/2020 14:21:47 01/01/20 20 COPD Screening completed [facility] 01/01/2020 13:46:08 07/03/20 19 Medicare Wellness Visit completed Robyn Snowden CMA [facility] 07/03/2019 09:46:58 12/24/19 19 COPD Screening completed Loree Fermin MD [address] [place] [address], [phone], [facility] 12/23/2018 16:10:32 11/22/19 19 Other (specify) completed Loree Fermin MD [address] [place], [address], [facility] 12/23/2018 16:18:15 08/25/19 19 COPD Screening completed Mervat Tamayo [facility] 08/25/2018 08:54:04 07/28/19 19 Post hospital/SNF follow-up/Transiti onal Care completed Mervat Tamayo [facility] 07/28/2018 11:38:42 06/24/20 18 Medicare Wellness Visit completed Mervat Tamayo [facility] 06/24/2018 11:06:23 02/07/20 18 Nebulizer Tx completed Petra Koenig [facility] 02/06/2018 16:37:17 08/10/19 17 Other (specify) completed Efrain Haile MD [address] [place] [address], [phone], [facility] 08/11/2016 17:04:42 04/09/20 16 Medicare Wellness Visit completed Aleisha Simon MA [facility] 04/09/2016 10:15:12 11/30/19 16 Smoking cessation counseling completed Efrain Haile MD [address] [place] [address], [phone], [facility] 11/30/2015 12:09:57 11/30/19 16 Medicare Wellness Visit completed Aleisha Simon MA [facility] 11/30/2015 11:48:48 08/08/19 16 Smoking cessation counseling completed Efrain Haile MD [address] [place] [address], [phone], [facility] 08/08/2015 12:05:33 07/04/20 15 Nebulizer Tx completed Chester De La Rosa LPN [facility] 07/04/2015 14:01:59 11/25/19 15 Medicare Wellness Visit completed Aleisha Simon MA [facility] 11/24/2014 11:44:26 10/20/19 14 Smoking cessation counseling completed Efrain Haile MD [address] [place] [address], [address], [facility] 10/19/2013 09:12:09 10/20/19 14 Medicare Wellness Visit completed Aleisha Simon MA [facility] 10/19/2013 09:07:27 10/16/19 13 Smoking cessation counseling completed Efrain Haile MD [address] [place], [address], [facility] 10/15/2012 16:59:22 10/16/19 13 Medicare Wellness Visit completed Aleisha Simon MA [facility] 10/15/2012 15:55:23 07/30/19 12 Medicare Wellness Visit completed Aleisha Simon MA [facility] 07/30/2011 11:28:36 06/16/20 10 Treatment and Advice completed Guille Ruiz, PT [address] [place], [address], [facility] 06/16/2010 10:38:54 06/02/20 10 Treatment and Advice completed Giulle Ruiz, PT [address] [place], [address], [facility] 06/02/2010 10:57:43 05/26/20 10 Treatment and Advice completed Guille Ruiz, PT [address] [place], [address], [facility] 05/26/2010 11:01:14 05/18/20 10 Treatment and Advice completed Guille Ruiz, PT [address] [place], [address], [facility] 05/18/2010 11:37:33 Imaging Results Imaging Date Name Status LastModified by [facility] Details LastModified Time 06/02/2024 US, breast completed [facility] (Imaging) [address] [place], [address], 06/08/2024 20:01:43 06/02/2024 MAMMO, diagnostic, tomosynthesis , bilateral completed [facility] ([facility]) [address], [place], , 06/08/2024 20:01:13 Procedure Notes None recorded. Medical Equipment None Reported. Allergies No known drug allergies Medications Name Sig Start Date Stop Date Status Note LastModified by Organization Details LastModified Time losartan 50 mg tablet Take 1 tablet twice a day by oral route for 90 days, for high blood pressure . active Not Available Not Available No t Available furosemid e 40 mg tablet 1/2 TAB QDAY 09/03 completed dose decrease change Not Available Not Available Not Available atorvasta tin 40 mg tablet TAKE ONE TABLET BY MOUTH ONCE DAILY active Not Available Not Available No t Available Augmentin 875 mg-125 mg tablet Take 1 tablet every 12 hours by oral route. 2011 active Not Available Not Available Not Avai lable atorvasta tin 80 mg tablet Take 1 tablet every day by oral route at bedtime. active lower dose change Not Available Not Available Not Available carvedilo l 6.25 mg tablet TAKE ONE TABLET BY MOUTH TWICE DAILY active Not Available Not Available No t Available doxycycli ne hyclate 100 mg capsule TAKE 1 CAPSULE BY MOUTH TWICE A DAY 10/24 completed Not Available Not Available Not Available carvedilo l 12.5 mg tablet Take 1 tablet twice a day by oral route. 09/03 completed Not Available Not Available Not Available ipratropi um 0.5 mg-albute rol 3 mg (2.5 mg base)/3 mL nebulizat ion soln TAKE 3 ML BY NEBULIZA TION EVERY 6 (SIX) HOURS FOR 7 DAYS. THEN 3 ML EVERY 6 HOURS NEEDED 01/23 completed Not Available Not Available Not Available albuterol sulfate 2.5 mg/3 mL (0.083 %) solution for nebulizat ion INHALE 3 ML BY NEBULIZA TION ROUTE EVERY 4 TO 6 HOURS NEEDED active Not Available Not Available No t Available azithromy james 250 mg tablet TAKE 2 TABLETS BY MOUTH ,TH EN TAKE 1 TABLET BY MOUTH EVERY DAY FOR 4 DAYS 03/13 completed Not Available Not Available Not Available prednison e 20 mg tablet TAKE 2 TABLETS BY MOUTH DAILY FOR 4 DAYS THEN 1 TABLET FOR 4 DAYS 10/24 completed started on 10/09/23 ordered by [facility] tapered dose. Not Available Not Available Not Available isosorbid e mononitra te ER 30 mg tablet,ex tended release 24 hr Take 1 tablet every day by oral route. active Not Available Not Available No t Available metoprolo l succinate ER 100 mg tablet,ex tended release 24 hr TAKE ONE TABLET BY MOUTH DAILY 2013 active Not Available Not Available Not Avai lable acetamino phen 300 mg-codein e 30 mg tablet 09/03 completed Not Available Not Available Not Available clopidogr el 75 mg tablet Take 1 tablet every day by oral route. 12/25 completed dose change Not Available Not Available Not Available omeprazol e 40 mg capsule,d elayed release TAKE 1 CAPSULE BY MOUTH EVERY DAY active Not Available Not Available No t Available aspirin 81 mg tablet,de layed release Take 1 tablet every day by oral route. active Not Available Not Available No t Available doxycycli ne monohydra te 100 mg tablet TAKE 1 TABLET BY MOUTH 2 TIMES A DAY X4 WEEK(S) 10/24 completed Not Available Not Available Not Available tramadol 50 mg tablet Take 1 tablet every 6 hours by oral route as needed. 04/25 completed new. per 3 [facility]- per [facility], not taking. CT Not Available Not Available Not Available butalbita l-acetami nophen-ca ffeine 50 mg-325 mg-40 mg tablet Take 1 tablet every 4 hours by oral route as needed. 04/09 completed Not Available Not Available Not Available carvedilo l 3.125 mg tablet 12/25 completed dose change Not Available Not Available Not Available ondansetr on 8 mg disintegr ating tablet Place 1 tablet every 8 hours by translin gual route as needed for 2 days. 09/03 completed Not Available Not Available Not Available levothyro xine 25 mcg tablet Take 1 tablet every day by oral route. 08/12 completed Not taking 07/03/19 SD Not Available Not Available Not Available levothyro xine 75 mcg tablet Take 1 tablet every day by oral route. 01/23 completed Not Available Not Available Not Available levothyro xine 100 mcg tablet Take 1 tablet every day by oral route for 90 days. 05/20 completed decrease d to 88mcg Not Available Not Available Not Available levothyro xine 88 mcg tablet TAKE 1 TABLET BY MOUTH EVERY DAY active Not Available Not Available No t Available benzonata te 100 mg capsule TAKE 1 CAPSULE BY MOUTH THREE TIMES A DAY NEEDED FOR 5 DAYS 10/23 completed done 10/11/22 lesvia Not Available Not Available Not Available levothyro xine 50 mcg tablet Take 1 tablet every day by oral route. 03/25 completed dose decrease per 03/14/23 [facility] med dc list, pt is taking 75mcg 03/21/23 [facility] Not Available Not Available Not Available cephalexi n 500 mg capsule TAKE 1 CAPSULE BY MOUTH TWICE A DAY FOR 7 DAYS 04/25 completed Not Available Not Available Not Available oseltamiv ir 75 mg capsule TAKE 1 CAPSULE BY MOUTH TWICE A DAY FOR 5 DAYS 10/23 completed Not Available Not Available Not Available lisinopri l 10 mg tablet Take 1 tablet every day by oral route as directed for 30 days. 09/03 completed Not Available Not Available Not Available losartan 25 mg tablet Take 1 tablet every day by oral route for 90 days. 12/27 completed not currentl y taking 12/27/21 Not Available Not Available Not Available SB Low Dose ASA EC 81 mg tablet,de layed release Take 1 tablet every day by oral route. 06/24 completed Not Available Not Available Not Available codeine 10 mg-guaife nesin 100 mg/5 mL oral liquid TAKE 10 ML EVERY 8 HOURS BY MOUTH FOR 5 DAYS 08/25 completed Not Available Not Available Not Available lisinopri l 5 mg tablet 07/19 completed Not Available Not Available Not Available furosemid e 20 mg tablet TAKE 1 TABLET BY MOUTH EVERY DAY active Not Available Not Available No t Available ibuprofen 600 mg tablet 12/23 completed Not Available Not Available Not Available losartan 100 mg tablet Take 1 tablet every day by oral route for 30 days. 01/23 completed Not taking 07/21/19 21 LZ Not Available Not Available Not Available fluticaso ne propionat e 50 mcg/actua tion nasal spray,[employer] USE 1 SPRAY IN EACH NOSTRIL ONCE A DAY active Not Available Not Available No t Available lisinopri l 2.5 mg tablet Take 1 tablet every day by oral route. 06/04 completed dose increase Not Available Not Available Not Available Ventolin HFA 90 mcg/actua tion aerosol inhaler INHALE 2 PUFFS BY MOUTH EVERY 4 HOURS FOR COPD FOR 30 DAYS active Not Available Not Available No t Available Doxycycli ne 100 mg capsule Take 1 capsule twice a day by oral route. 04/25 completed per [facility]//Dup licate Not Available Not Available Not Available Tylenol as needed for pain 10/24 completed Not Available Not Available Not Available multivita min active Not Available Not Available Not Available Calcium 600 + D(3) 1 bid active Not Available Not Available Not Available Xopenex HFA 45 mcg/actua tion aerosol inhaler 12/25 completed Not Available Not Available Not Available Xopenex HFA 09/03 completed Not Available Not Available Not Available Probiotic Take daily 10/24 completed Not Available Not Available Not Available Brilinta 90 mg tablet TAKE 1 TABLET BY MOUTH TWICE A DAY active Not Available Not Available No t Available Anoro Ellipta 62.5 mcg-25 mcg/actua tion powder for inhalatio n Inhale 1 puff every day by inhalati on route for 30 days. 01/05 completed Not using, changed to Trelegy 01/06/24 SD Not Available Not Available Not Available Spiriva Respimat 2.5 mcg/actua tion solution for inhalatio n Inhale 2 puffs every day by inhalati on route for 90 days. 02/17 completed Not Available Not Available Not Available Stiolto Respimat 2.5 mcg-2.5 mcg/actua tion solution for inhalatio n INHALE 2 PUFFS EVERY DAY 09/02 completed Not Available Not Available Not Available Entresto 09/03 completed Not Available Not Available Not Available vitamin B12 1,000 mcg-folic acid 400 mcg sublingua l lozenge Place by sublingu al route. active Not Available Not Available No t Available Trelegy Ellipta 100 mcg-62.5 mcg-25 mcg powder for inhalatio n USE 1 INHALATI ON ORALLY DAILY FOR CHRONIC OBSTRUCT OLIVA PULMONAR Y DISEASE active Not Available Not Available No t Available Fluad Quad 1089-3782 (65yr up)(PF) 60 mcg (15 mcg x 4)/0.5mL IM syringe ADM 0.5ML IM UTD 01/23 completed Not Available Not Available Not Available Vitals Date Recorded Body height Body mass index (BMI) Body weight Heart rate Oxygen saturation Oxygen saturation in Arterial blood by Pulse oximetry Systolic blood pressure Diastolic blood pressure Provider Name and Address Organization Details Last Updated DateTime 3 159.39 cm 14.7 kg/m2 11609.6 7 g 77 /min 94 % 94 % 171 mm[Hg] 77 mm[Hg] Sophia House [facility] 3 13:41:44 Date Recorded Body height Body mass index (BMI) Body weight Heart rate Systolic blood pressure Diastolic blood pressure Provider Name and Address Organization Details Last Updated DateTime 4 159.39 cm 14.8 kg/m2 40631.1 7 g 92 /min 124 mm[Hg] 58 mm[Hg] Shonna Chun [facility] 4 11:15:41 Date Recorded Body height Body mass index (BMI) Body weight Oxygen saturation Oxygen saturation in Arterial blood by Pulse oximetry Inhaled oxygen flow rate Heart rate Systolic blood pressure Diastolic blood pressure Provider Name and Address Organization Details Last Updated DateTime 4 159.39 cm 14.6 kg/m2 62453.5 7 g 96 % 96 % 3.5 L/min 92 /min 150 mm[Hg] 78 mm[Hg] Kathryn Daniels [facility] 4 14:25:41 Date Recorded Body height Body mass index (BMI) Body weight Oxygen saturation Oxygen saturation in Arterial blood by Pulse oximetry Heart rate Systolic blood pressure Diastolic blood pressure Provider Name and Address Organization Details Last Updated DateTime 4 159.39 cm 14.9 kg/m2 53001.6 7 g 95 % 95 % 89 /min 156 mm[Hg] 60 mm[Hg] Robyn Snowden [facility] 4 12:36:02 Date Recorded Oxygen saturation Oxygen saturation in Arterial blood by Pulse oximetry Heart rate Systolic blood pressure Diastolic blood pressure Provider Name and Address Organization Details Last Updated DateTime 4 97 % 97 % 91 /min 126 mm[Hg] 60 mm[Hg] Loree Fermin MD [address] [place] [address] [place], [address], [facility] 4 12:50:12 Date Recorded Body height Body mass index (BMI) Body weight Heart rate Systolic blood pressure Diastolic blood pressure Provider Name and Address Organization Details Last Updated DateTime 4 159.39 cm 15.9 kg/m2 14295.7 2 g 88 /min 152 mm[Hg] 54 mm[Hg] Shonna Chun MA [facility] 4 10:53:14 Date Recorded Systolic blood pressure Diastolic blood pressure Provider Name and Address Organization Details Last Updated DateTime 04/27/2024 124 mm[Hg] 68 mm[Hg] Loree Fermin MD [address] [place] [address], [phone] [place] [address] 04/27/2024 11:27:56 Date Recorded Systolic blood pressure Diastolic blood pressure Provider Name and Address Organization Details Last Updated DateTime 08/19/2023 159 mm[Hg] 60 mm[Hg] Shonna Chun MA [facility] 08/19/2023 14:39:17 Date Recorded Systolic blood pressure Diastolic blood pressure Provider Name and Address Organization Details Last Updated DateTime 08/25/2023 135 mm[Hg] 62 mm[Hg] Loree Fermin MD [address] [place] [address], [phone] [place] [address] 09/02/2023 13:42:05 Social History Question Answer Notes LastModified by Organizat ion Details LastModified Time Tobacco Smoking Status Former Smoker quit Spring 2014 Loree Fermin MD [address] [place] [address], [phone] 07/03/2019 10:18:26 Do You Have An Advance Directive? Yes Information not available 11/02/2008 What Is Your Level Of Alcohol Consumption? Moderate 3 Oz Of Wine Per Night [email or web address] Information not available 07/03/2019 Are You Blind Or Do You Have Difficulty Seeing? No Information not available 10/19/2013 What Is Your Level Of Caffeine Consumption? Moderate 1-1.5 Cups Of Coffee Per Day Information not available 10/19/2013 How Much Tobacco Do You Chew? None Information not available 05/31/2011 Are You Deaf Or Do You Have Serious Difficulty Hearing? No Information not available 10/19/2013 What Type Of Diet Are You Following? REGULAR Information not available 05/31/2011 Which Illicit Or Recreational Drugs Have You Used? None Information not available 05/31/2011 Education 12 Inform ation not available 05/31/2011 What Is Your Occupation? Retired Information not available 05/31/2011 How Many Days In The Past Year Have You Had A Heavy Drinking Consumption (4+ Female, 5+ Male)? 0 Information not available 10/15/2012 Are There Any Guns Present In Your Home? No Information not available 10/19/2013 Live Alone Or With Others? With Others Donn [email or web address] Information not available 07/03/2019 Patient Has Health Care Proxy Signed And In Chart Yes 05/08/24 Updated HCP Added To Chart Information not available 11/12/2018 Case Referred By Other: S/p Hospital Discharge Information not available 09/12/2017 Reason For Case Management Referral: Poorly Controlled Chronic Disease: Information not available 09/12/2017 Date Care Plan Initiated 05/27/2017 [email or web address] Information not available 09/12/2017 Case Management Needs Identified #1 Disease Management Education Information not available 09/12/2017 Case Management Plans/Interven tions #1 Health Teaching Pt Will Call Pcp/CM If New Symptoms, Questions Or Concerns, If She Has Trouble Obtaining Medications Or Increase In Weight, More Trouble Breathing, Leg Swelling. Information not available 09/12/2017 Care Plan Status Of Goals Modified 09/12/17 [email or web address] Information not available 09/12/2017 Case Management Needs Identified #2 Other: Care Coordination Information not available 09/12/2017 Case Management Plans/interven tions #2 Coordination Of Services Ensure Pt Has Appts Needed And Specialty Appointments, Act As Liaison If Pt Has Worrisome Symptoms Or Needs Advice. 09/12/2017: Pcp Retiring Soon And Pt Would Like Support Of Tom MOMIN As She Transitions To [facility] After 30+ Years With The Same Provider. Information not available 09/12/2017 MOLST Form Signed And In Chart 11/10/2018 Information not available 11/12/2018 CCM Consent Discussion 04/27/2024 [email or web address] Information not available 04/27/2024 Marital Status MAndrea Zacarias lis Inf ormation not available 11/10/2018 Mosquito Repellent Used Routinely Yes [email or web address] Information not available 07/03/2019 What Was The Date Of Your Most Recent Tobacco Screening? 04/27/2024 Information not available 04/27/2024 How Many Children Do You Have? 2 B. 1967, 1971 Information not available 07/03/2019 What Is Your Current Pack Years? 20-29packyears 25 Pack Year [email or web address] Information not available 10/27/2023 Seat Belts Used Routinely Yes Information not available 05/31/2011 Are You Sexually Active? Yes Information not available 05/31/2011 Smoke Alarm In Home Yes Information not available 05/31/2011 At What Age Did You Start Smoking Tobacco? 13 Information not available 05/31/2011 How Much Tobacco Do You Smoke? 0.5 PPD [email or web address] Information not available 07/03/2019 What Types Of Sporting Activities Do You Participate In? None Information not available 05/31/2011 General Stress Level High [email or web address] Information not available 07/03/2019 Do You Use Sunscreen Routinely? Yes When Needed Information not available 03/29/2010 How Many Years Have You Smoked Tobacco? 50 [email or web address] Information not available 10/27/2023 Do You Or Have You Ever Used Any Other Forms Of Tobacco Or Nicotine? No Information not available 01/01/2022 Sex: Female Functional Status Question Answer Note LastModified by Organization D etails LastModified Time Do you have difficulty walking or climbing stairs? No Information not available 10/19/2013 Do you have difficulty doing errands alone? No Information not available 10/19/2013 Do you have difficulty dressing or bathing? No Information not available 10/19/2013 Mental Status Question Answer Note LastModified by Organization D etails LastModified Time Do you have difficulty concentrating, remembering or making decisions? No Information no t available 10/19/2013 Family History Relationship Description Onset Age of this Age Resolved Age Notes LastModified by Organization Details LastModified Time Sister Heart disease 70 fall 2021 lindsey fabian Not available 10/23/2022 11:53:33 Notes:father- angina, sister and mother mitral and aortic valve disease- had replacement; states mother had a blood clot in her brain Medical History Condition Response Hypertension Y Gynecological History Statement/Question Response Date of LMP Obstetrics History GPAL:G 0 P 0 0 0 0 Immunizations Vaccine Type Date Status Note Provider Nam e and Address Organization Details Recorded Time influenza, unspecified formulation 2 completed Not Available [facility] 12/19/2021 21:27:39 Influenza, split virus, trivalent, preservative 1 completed Not Available [facility] 08/01/2019 02:18:12 pneumococcal polysaccharide PPV23 1 completed Not Available [facility] 08/01/2019 02:14:31 influenza, unspecified formulation 3 completed Not Available [facility] 12/19/2021 21:27:39 influenza, unspecified formulation 4 completed Not Available [facility] 12/19/2021 21:27:39 Td(adult) unspecified formulation 5 completed Not Available [facility] 12/19/2021 21:27:39 influenza, unspecified formulation 5 completed Not Available [facility] 12/19/2021 21:27:39 influenza, unspecified formulation 6 completed Not Available [facility] 12/19/2021 21:27:39 influenza, unspecified formulation 7 completed Not Available [facility] 12/19/2021 21:27:39 influenza, unspecified formulation 8 completed Not Available [facility] 12/19/2021 21:27:39 zoster live 2 completed Not Available [facility] 08/01/2019 02:26:41 Influenza, split virus, trivalent, preservative 2 completed Not Available [facility] 08/01/2019 02:29:18 Influenza, split virus, trivalent, PF 3 completed Not Available [facility] 08/01/2019 02:25:03 Influenza, high-dose, trivalent, PF 4 completed Not Available [facility] 08/01/2019 02:19:19 Influenza, high-dose, trivalent, PF 5 completed Not Available [facility] 08/01/2019 02:20:10 Td (adult), 5 Lf tetanus toxoid, preservative free, adsorbed 6 completed Not Available [facility] 08/01/2019 02:20:15 Pneumococcal conjugate PCV 13 6 completed Not [facility] 08/01/2019 02:33:41 Influenza, high-dose, trivalent, PF 6 completed Not Available [facility] 08/01/2019 02:20:44 Influenza, high-dose, trivalent, PF 7 completed Not Available [facility] 08/01/2019 02:22:02 Influenza, high-dose, trivalent, PF 8 completed Not Available [facility] 08/01/2019 02:29:52 Influenza, high-dose, trivalent, PF 9 completed Not Available [facility] 08/01/2019 02:24:08 Influenza, high-dose, quadrivalent, PF 1 completed Ernestina Hammer [employer] null, [facility] 05/04/2021 11:17:05 Influenza, high-dose, quadrivalent, PF 2 completed Loree Fermin MD [address] [place] [address], [phone], [facility] 04/18/2022 09:40:16 COVID-19, mRNA, LNP-S, PF, 30 mcg/0.3 mL dose 1 completed Not Available [facility] 12/19/2021 21:27:39 COVID-19, mRNA, LNP-S, PF, 30 mcg/0.3 mL dose 1 completed Not Available [facility] 12/19/2021 21:27:39 Influenza, high-dose, trivalent, PF 4 completed Loree Fermin MD [address] [place] [address], [phone], [facility] 04/27/2024 19:48:44 COVID-19, mRNA, LNP-S, PF, 30 mcg/0.3 mL dose 1 [facility] 03/21/[facility]23 14:27:34 zoster recombinant 3 completed ILIANA Harper, [facility] 05/17/2023 12:08:58 influenza, unspecified formulation 3 completed [facility] 10/25/2023 11:11:18 Influenza, adjuvanted, quadrivalent, PF 3 completed [facility] 10/25/2023 11:11:18 Influenza, split virus, trivalent, preservative 9 completed [facility] 10/25/2023 11:11:18 Past Encounters Encounter ID Performer Location Encounter Start Date Encounter Closed Date Diagnosis/Indication Diagnosis SNOMED-CT Code Diagnosis ICD10 Code Diagnosis Note [id number] [facility], [address] [place] [address] 05/30/2000 15:15:00 08/04/2008 02:02:29 [id number] [facility], [address] [place] [address] 02/27/2001 16:30:00 08/04/2008 02:02:29 [id number] [facility], [address] [place] [address] 07/04/2001 15:15:00 08/04/2008 02:02:29 [id number] Radiology , [address] [address] 08/20/2001 15:00:00 08/04/2008 02:02:29 [id number] Radiology , [address] [address] 08/20/2001 00:00:00 08/04/2008 02:02:29 [id number] [facility], [address] [place] [address] 06/03/2002 07:31:25 08/04/2008 02:02:29 [id number] FP, [facility], [address] [place] [address] 08/03/2002 14:55:27 08/04/2008 02:02:29 [id number] Radiology , [facility] [address] [place] [address] 10/12/2002 09:51:51 08/04/2008 02:02:29 [id number] , [facility], [address] [place] [address] 06/09/2003 15:20:58 06/11/2003 08:38:29 [id number] FP, [facility], [address] [place] [address] 08/06/2003 15:30:07 08/09/2003 09:13:17 [id number] Radiology , [facility] [address] [place] [address] 01/26/2004 13:20:46 08/04/2008 02:02:29 [id number] Radiology , [facility] [address] [place] [address] 01/26/2004 00:00:00 08/04/2008 02:02:29 [id number] FP, [facility], [address] [place] [address] 07/11/2004 15:04:15 07/11/2004 15:04:19 [id number] FP, [facility], [address] [place] [address] 08/17/2004 11:26:25 08/17/2004 17:14:47 [id number] Radiology , [facility] [address] [place] [address] 01/30/2005 10:31:18 01/31/2005 09:10:05 [id number] Radiology , [facility] [address] [place] [address] 01/30/2005 00:00:00 08/04/2008 02:02:29 [id number] FP, [facility], [address] [place] [address] 05/22/2005 08:28:47 05/22/2005 08:29:04 [id number] FP, [facility], [address] [place] [address] 08/28/2005 11:15:38 08/28/2005 15:47:00 [id number] Radiology , [facility] [address] [place] [address] 02/21/2006 08:47:53 08/04/2008 02:02:29 [id number] Radiology , [facility] [address] [place] [address] 02/21/2006 00:00:00 08/04/2008 02:02:29 [id number] FP, [facility], OFFICE [address] [facility] [place] [address] 07/02/2006 14:19:46 08/04/2008 02:02:29 [id number] FP, [facility], OFFICE [address] [facility] [address] 08/19/2006 13:40:19 08/19/2006 16:31:26 [id number] FP, [facility], OFFICE [address] [facility] [address] 09/05/2006 14:40:57 09/06/2006 08:34:16 [id number] FP, [facility], OFFICE [address] [facility] [address] 09/18/2006 13:28:06 09/19/2006 09:16:25 [id number] Radiology , [facility] [address] [facility] [place] [address] 09/20/2006 13:04:41 09/23/2006 09:24:42 [id number] Radiology , [facility] Sandra [facility] [place] [address] 09/23/2006 12:52:54 09/24/2006 09:29:30 [id number] Radiology , [facility] Sandra [facility] [place] [address] 09/23/2006 00:00:00 08/04/2008 02:02:29 [id number] LAB - [facility] Sandra [facility] CEEILIANA [address] 10/10/2006 09:46:27 10/10/2006 09:46:50 [id number] Radiology , [facility] [place] [facility] [place] [address] 09/20/2006 00:00:00 08/04/2008 02:02:29 [id number] Radiology , [facility] [address] 02/27/2007 09:45:04 02/28/2007 09:10:25 [id number] Radiology , [facility] [place] [address] 02/27/2007 00:00:00 08/04/2008 02:02:29 [id number] , [facility], [address] [place] [address] 05/21/2007 14:23:56 05/21/2007 14:23:59 [id number] , [facility], [address] [place] [address] 09/24/2007 11:40:37 08/04/2008 02:02:29 [id number] LAB - [address] [address] 11/07/2007 08:20:49 11/07/2007 08:20:55 [id number] , [facility], [address] [place] [address] 05/02/2008 10:46:33 05/02/2008 10:47:06 [id number] Radiology , [facility] [address] [place] [address] 05/10/2008 10:51:18 05/11/2008 09:23:04 [id number] Radiology , [facility] [address] [place] [address] 05/10/2008 00:00:00 08/04/2008 02:02:29 [id number] Efrain Haile MD , [facility], [address] [place] [address] 11/02/2008 10:36:41 11/04/2008 14:53:20 [id number] Radiology , [facility] [address] [place] [address] 11/04/2008 14:54:00 11/08/2008 14:31:51 [id number] Radiology , [facility] [address] [place] [address] 11/04/2008 00:00:00 05/12/2009 02:00:52 [id number] , [facility], [address] [place] [address] 06/23/2009 07:14:28 06/23/2009 10:12:17 [id number] Radiology , [facility] [address] [place] [address] 07/26/2009 15:05:57 07/27/2009 14:51:42 [id number] , [facility], [address] [place] [address] 03/29/2010 13:40:52 03/30/2010 09:57:39 [id number] FP, [facility], OFFICE [address] [facility] [address] 05/16/2010 13:49:36 05/16/2010 16:11:16 [id number] Radiology , [facility] ILIANA Castañeda62[address] 6 05/16/2010 14:11:10 05/17/2010 13:32:21 [id number] Physical Therapy, [facility] ILIANA Castañeda62[address] 6 05/18/2010 10:49:13 05/19/2010 07:47:21 [id number] Physical Therapy, [facility] ILIANA Castañeda62[address] 6 05/26/2010 10:24:16 05/26/2010 11:45:02 [id number] Physical Therapy, [facility] ILIANA Castañeda62[address] 6 06/02/2010 10:25:10 06/02/2010 11:01:50 [id number] Physical Therapy, [facility] Sandra [facility] ILIANA Olivo62[address] 6 06/16/2010 09:59:10 06/19/2010 07:55:20 [id number] Physical Therapy, [facility] [place] [address] 07/03/2010 09:57:16 07/03/2010 12:00:38 [id number] Radiology , [facility] ILIANA Castañeda62[address] 6 08/18/2010 12:23:51 08/21/2010 14:44:50 [id number] [facility], OFFICE [address] [facility] [address] 03/28/2011 07:23:59 03/28/2011 13:53:03 [id number] FP, [facility], OFFICE [address] [facility] [address] 07/30/2011 11:13:21 07/30/2011 12:14:40 [id number] FP, [facility], OFFICE [address] [facility] [address] 08/16/2011 14:26:37 08/20/2011 11:28:58 [id number] FP, [facility], OFFICE [address] [facility] [address] 11/14/2011 14:35:36 11/15/2011 11:19:18 [id number] FP, [facility], [address] [place] [address] 11/26/2011 10:48:20 12/04/2011 13:38:03 [id number] [facility], [address]ICE [address] [place] [address] 12/07/2011 10:49:22 12/07/2011 11:22:58 [id number] Radiology , [facility] [address] [place] [address] 01/10/2012 10:55:33 01/11/2012 10:29:17 [id number] Radiology , [facility] [address] [place] [address] 01/10/2012 11:08:59 01/10/2012 11:56:[id number] [facility]. CHLOÉ [facility], [address] [place] [address] 03/28/2012 06:11:38 03/30/2012 12:13:46 [id number] Efrain Haile MD [facility], [address] [place] [address] 10/15/2012 15:35:36 10/15/2012 16:28:44 [id number] ILIANA Jameson [facility], [address] [place] [address] 04/20/2013 10:38:42 04/20/2013 11:03:46 Benign essential hypertension 8790841 controlled - has office hbp Tobacco user 524486131 u rge to quit; will try to use nicotine gum Influenza vaccine needed [id number] [id number] Shanna Sarabia [facility], [address] [place] [address] 10/19/2013 08:53:21 10/19/2013 09:33:25 Adult health examination 091505361 needs mammo Counseling [id number] Benign ess ential hypertension 5027142 at goal same med Tobacco user 480600305 u rge to quit; will try to use nicotine gum Uterine prolapse 10889231 [id number] Shanna NGUYỄN [facility], [address] [place] [address] 04/15/2014 09:25:27 04/15/2014 10:11:17 Congestive heart failure 39928476 appears dry. stay on lasix Myocardial infarction 18032288 continue same meds- pt has slightly lose stools. could be from bilinta. needs to stay on that. refer to cardiology for f/u. Benign ess ential hypertension 9776143 at goal same med Tobacco user 386475263 e ncourage her to stay abstinent. [id number] Emma Martinez LPN , [facility], [address] [place] [address] 05/27/2014 09:55:12 05/27/2014 10:35:19 Congestive heart failure 80392734 appears dry. to have echo an f/u cardiology apt in 3 month Tobacco user 069463605 s trongly encouraged to try the nicotime gum. told we must get her off cigs. She is still at risk for worsening of her heart disease. 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 good ejection fraction- Tobacco user 241261798 s trongly encouraged to try the nicotime gum. told we must get her off cigs. Benign ess ential hypertension 1841334 BP too low I spokeo her cardiologi st . He agreed with me to cut the coreg in half to 6.25mg bid Pt to see cardiologi st in one month Fatigue 71498354 may be related to coreg. [id number] Efrain Haile MD , [facility], [address] [place] [address] 11/24/2014 11:38:17 11/24/2014 12:19:05 Congestive heart failure 57556567 appears dry. good ejection fraction- Headache 10405982 tensio n headache vs migraine. has only with emotional stress. ret in 1 months for reeval Angina pectoris 047859888 on coreg and asa and brilinta because of stent Tobacco user 445388424 s trongly encouraged to try the nicotime gum. told we must get her off cigs. Fatigue 17582082 is deconditio marcelina plus smoking not helping with endurance. - urged to try e-cigs or other nicotime replacemen t products. refuses prescripti on meds. increase walking gradually f/u in a month [id number] Luz Elena Ulloa , [facility], [address] [place] [address] 12/22/2014 14:58:19 12/22/2014 15:36:51 Insomnia 994096792 went over sleep hygiene. insomnia is listed as s/e of atorvastat in. not sure that is the case. but stop med for a week and call. meanwhile more wlaking, no afternoon coffee, turn clock around., no TV right before bed Headache 88557835 tensio n headache take tyenol alone if esgic wipes her out [id number] Natalie Woods LPN , [facility], [address] [place] [address] 05/31/2015 06:39:01 06/03/2015 09:55:12 Active or passive immunization 202505259 Z23 [id number] Efrain Haile MD , [facility], [address] [place] [address] 06/13/2015 13:54:46 06/13/2015 14:24:42 Benign essential hypertension 2075910 I10 at goal same meds Cardiomyopathy 07541210 I42.9 per cardilogis t Congestive heart failure 71931873 I50.9 appears dry. good ejection fraction- Tobacco user 035294803 Z 72.0 strongly encouraged to try the nicotime gum. told we must get her off cigs. 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 6111673 I25.2 saty on asa and beta osbaldo [id number] Efrain Haile MD , [facility], [address] [place] [address] 07/04/2015 13:39:06 07/04/2015 14:52:53 Acute exacerbation of chronic obstructive pulmonary disease 355709442 J44.1 use spacer- quit smoking call if worse- gets dysoneic or feverish [id number] Efrain Haile MD , [facility], [address] [place] [address] 08/08/2015 10:32:46 08/08/2015 11:27:18 Administration of diphtheria and tetanus vaccine 03796218 Z23 Chronic ob structive pulmonary disease 75964294 J44.9 use albuterol q4hr prn , can use before going out in cold air Screening for disorder 902279091 Z13.9 Tobacco user 729115182 Z 72.0 strongly encouraged to try the patch- told her I don't care if she uses nicotine replacment forever. will try patch, but admits not being motivated. Nicotine dependence 5629 4008 Z87.035 [id number] Efrain Haile MD , [facility], [address] [place] [address] 09/27/2015 11:04:34 09/27/2015 11:53:06 Pulmonary edema 61742485 J81.1 resolved continue same meds Cardiomyopathy 82788339 I42.9 low salt diet stressed Tobacco user 056620250 Z 72.0 on [facility] told can take that dose for life- can supplement with nicotine gum [id number] Efrain Haile MD , [facility], [address] [place] [address] 11/30/2015 11:36:37 11/30/2015 12:23:36 Mixed hyperlipidemia 278187232 E78.2 Benign ess ential hypertension 4964093 I10 at goal same meds Nicotine dependence 5629 4008 Z87.891 cont wearing 14mg/hr patch daily commended on quitting smoking. could try to go down to 7mg/h Tobacco user 317061771 Z 72.0 Congestive heart failure 32806891 I50.9 controlled Active or passive immunization 537255809 Z23 Coronary arteriosclerosis 20481160 I25.10 same meds Skin tag 217493336 L91.8 cryo done [id number] Efrain Haile MD , [facility], [address] [place] [address] 04/09/2016 10:09:56 04/09/2016 11:06:13 Adult health examination 172027298 Z00.00 see Risk Assessment and Lifestyle Change Counseling section above Counseling 953998016 Z71 .9 Active or passive immunization 061978129 Z23 Uterine prolapse 1939426 5 N81.4 to call gyne about surgery Congestive heart failure 40648540 I50.9 controlled Ischemic h eart disease 802455392 I25.9 [id number] MD DELMA Humphrey, [facility], [address] [place] [address] 05/18/2016 13:49:41 05/18/2016 15:00:28 Pre-surgery evaluation 239143716 Z01.818 Patient is doing well today and is asymptomat ic other than SOB during exertion which is baseline. NO acute changes. EKG does show LBBB and I have no previous EKG for comparison . It is unclear when she last saw her cardiologi st, but it appears she was told she needs a defibrilla tor. She says she has upcoming appt with new cardiologi st for second opinion at the end of this year. With EF reduced from 30-40% in September of this year to 20-21% in January of this year, and no cardiology notes since this last echo, I cannot recommend she undergo uterine prolapse surgery/ge neral anesthesia without cardiology sign off. I have contacted Dr. Bates's office and am waiting for a call back. I will continue to contact him until we can have a conversati on about the pt and whether or not she is a surgical candidate. Congestive heart failure 42158257 I50.9 Asymptomat ic today but I am trying to reach Dr. Bates's office as detailed above. Continue with all current medication s for the time being. Call with any increased SOB, LE edema, other cardiac symptoms. WIll check CXR. Uterine prolapse 7545535 5 N81.4 Surgery scheduled for 05/29. Will not give her the green light for this procedure until cardiology weighs in. Coronary arteriosclerosis 50912670 I25.10 Continue medication s as directed by cardiology . Will follow up with new cardiologi st in June per pt. I am trying to reach Dr. Bates's office for latest note to see their recommenda tions as I am not confident pt is accurate historian or 100% compliant at this time. [id number] MD DELMA Ramires, [facility], [address] [place] [address] 09/03/2016 10:44:59 09/03/2016 11:48:23 Tobacco user 408534676 Z72.0 not smoking for a year Benign ess ential hypertension 8672835 I10 at goal same med Ischemic h eart disease 678872334 I25.9 on coreg and asa because of stent Congestive heart failure 97791930 I50.9 controlled needs defibrilla tor hooke up as has a EF of 20% Chronic ob structive pulmonary disease 76496540 J44.9 pro air prn rarely uses [id number] MD DELMA Ramires, [facility], [address] [place] [address] 12/25/2016 10:33:22 12/25/2016 11:07:07 Gastroenteritis 95186865 K52.9 CLEAR LIQUIDS UNTIL N AND V STOPPED. CALL IF NOT BETTER IN 2 DAYS Cardiomyopathy 10102256 I42.9 LOW EJECTION FRACTION- DOING WELL POST SURGERY FOR PACER/ICD. F/U WITH CARDIOLOGY [id number] Efrain Haile MD , [facility], [address] [place] [address] 12/27/2016 08:42:39 12/27/2016 14:01:33 Nausea and vomiting 60007881 R11.2 Small cash l obstruction 742647729 K56.60 radiologis t call me to confirm- sent to [facility] ER- signed out to admitting md. not sure [id number] Efrain Haile MD , [facility], [address] [place] [address] 01/22/2017 10:51:56 01/22/2017 11:17:31 Small bowel obstruction 486662616 K56.60 resolved with inguinal hernia repair Cardiomyopathy 94676976 I42.9 LOW EJECTION FRACTION- POST SURGERY FOR PACER/ICD. F/U WITH CARDIOLOGY Congestive heart failure 75690789 I50.9 go down to lasix 20mg a day to see cardiology next week . if weight goes up 3 pounds in a day or 5 pounds breezy week, go back to lasix 40g a day. f/u in 6 weeks. [id number] Efrain Haile MD , [facility], [address] [place] [address] 03/05/2017 11:03:03 03/05/2017 11:31:32 Small bowel obstruction 013733345 K56.60 resolved wtih hernia surgery- finally getting appetite back though weight hasn't picked up yet. eating all day long. ret in 3 months Benign ess ential hypertension 1734673 I10 office hyertensio n- has longhe of this stay on same meds [id number] Olga Humphrey MA , [facility], [address] [place] [address] 04/05/2017 06:50:19 04/08/2017 12:07:31 Active or passive immunization 453865481 Z23 [id number] Efrain Haile MD , [facility], [address] [place] [address] 06/04/2017 10:50:44 06/04/2017 11:24:22 Benign essential hypertension 0329861 I10 BP high in right arm and normal in left- could have narrowing of left subclavian aretery. In past beta blockers did a better job in brining down her BP. I left a message for her cardiologi st Dr. Guille hernandez to call me about increasing the coreg. Had been on metroprolo l 100mg in the past without respirator y compromise Chronic ob structive pulmonary disease 60091185 J44.9 Congestive heart failure 45507647 I50.9 appears dry. not in failur- Ischemic h eart disease 494170424 I25.9 on coreg and asa and brilinta because of stent [id number] Efrain Haile MD , [facility], [address] [place] [address] 09/03/2017 09:21:14 09/03/2017 09:48:54 Benign essential hypertension 9464634 I10 Blood pressure at goal same med Chronic ob structive pulmonary disease 48847388 J44.9 not active- prn albuterol Congestive heart failure 63992099 I50.9 appears dry. not in failure Mixed hyperlipidemia 267 759997 E78.2 statin [id number] Loree Fermin MD , [facility], [address] [place] [address] 12/03/2017 11:58:46 12/03/2017 13:01:39 Benign essential hypertension 2964995 I10 Cardiac pa cemaker in situ 018214359 Z95.0 Congestive heart failure 06408257 I50.9 Chronic ob structive pulmonary disease 90513391 J44.9 [id number] Loree Fermin MD , [facility], [address] [place] [address] 12/24/2017 11:42:38 12/24/2017 12:19:38 Mixed hyperlipidemia 385034526 E78.2 Left lower quadrant pain 765613442 R10.32 Allergic rhinitis 746883 04 J30.1 [id number] KAMINI Padilla , [facility], OFFICE [address] [place] [address] 02/06/2018 13:46:41 02/06/2018 16:30:53 Acute upper respiratory infection 65702073 J06.9 Educated patient that URI is a viral illness of the upper airways. It is not bacterial and does not benefit from antibiotic s. Average duration of URI is 7-10 days but in a recent trial, treatment at 7-10 days of illness with antibiotic s, intranasal steroids, or placebo did not alter natural history at 3 weeks. Recommende d symptomati c treatments including NSAIDS, semi-uprig ht sleep position, antihistam belkis at HS, limited course of nasal sympathomi metics and/or cough syrups, and nasal saline rinses with soft squeeze bottle or Neti pot. Return for fevers > 101 for 3 days, worsening sinus pain, or failure to resolve in 2-4 weeks. Bronchitis 02560605 J40 Pt tolerated neb in clinic with some relief of symptomsWi ll trial albuterol inhaler to be used as neededRevi ewed self-admin istration technique, potential adverse effectsShe will return to clinic for worsening or unresolved symptoms [id number] Loree Fermin MD , [facility], OFFICE [address] [place] [address] [phone] 6 04/04/2018 11:01:34 04/04/2018 11:59:38 Cardiomyopathy 40627936 I42.9 Dyspnea on exertion 6084 5006 R06.09 Posterior rhinorrhea 758 42312 R09.82 Uterine prolapse 3136766 5 N81.4 [id number] Anay Rueda RN, BSN , [facility], OFFICE [address] [place] [address] [phone] 6 04/10/2018 07:17:15 04/10/2018 14:00:41 Active or passive immunization 326132296 Z23 [id number] Loree Fermin MD , [facility], OFFICE [address] [place] [address] 62313-337 6 04/25/2018 10:24:16 04/25/2018 11:54:41 Chronic obstructive pulmonary disease 39155498 J44.9 Uterine prolapse 8844409 5 N81.4 [id number] Loree Fermin MD , [facility], OFFICE [address] [place] [address] [phone] 6 06/24/2018 10:56:13 06/24/2018 11:51:09 Adult health examination 069336310 Z00.00 see Risk Assessment and Lifestyle Change Counseling section above Counseling 232605612 Z71 .9 Depression screening 171 828420 Z13.89 depression screening tool administer ed, entered into emr, scored and discussed, time greater than 7.5 minutes Benign ess ential hypertension 2898738 I10 Mixed hyperlipidemia 267 774561 E78.2 Chronic ob structive pulmonary disease 62318042 J44.9 Posterior rhinorrhea 758 47216 R09.82 Uterine prolapse 0660885 5 N81.4 Ischemic h eart disease 577051691 I25.9 Systolic h eart failure 670559281 I50.20 Left bundl e branch block 93034640 I44.7 History of carotid endarterectomy 606878543 Z98.890 2015 - right 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 3909051313 9104 Z95.810 Jul 2016 Cardiomyopathy 20567276 I42.9 Osteopenia 923927481 M85 .80 [id number] Loree Fermin MD , [facility], OFFICE [address] [place] [address] [phone] 6 07/10/2018 17:15:05 07/10/2018 17:54:36 Acute exacerbation of chronic obstructive pulmonary disease 768224221 J44.1 Cough 06657798 R05 [id number] Loree Fermin MD , [facility], OFFICE [address] [place] [address] [phone] 6 07/28/2018 11:17:51 07/28/2018 12:22:07 Chronic obstructive pulmonary disease 14196463 J44.9 Acute exac erbation of chronic obstructive pulmonary disease 186113804 J44.1 [id number] Loree Fermin MD , [facility], OFFICE [address] [place] [address] [phone] 6 08/25/2018 08:52:37 08/25/2018 11:58:57 Benign essential hypertension 9386847 I10 Chronic ob structive pulmonary disease 50130617 J44.9 Mixed hyperlipidemia 267 607574 E78.2 [id number] Loree Fermin MD , [facility], OFFICE [address] [place] [address] [phone] 6 11/10/2018 13:22:32 11/13/2018 14:23:58 Chronic obstructive pulmonary disease 65774629 J44.9 Benign ess ential hypertension 7801708 I10 at goal of less than 140/90 with meds Uterine prolapse 3986782 5 N81.4 Systolic h eart failure 409085354 I50.[address] Gannon - well controlled with meds History of carotid endarterectomy 923715974 Z98.890 2015 - right Cardiomyopathy 77044169 I42.[address] Gannon - well controlled with meds 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 [id number] Loree Fermin MD , [facility], OFFICE [address] [place] [address] 09764-819 6 12/23/2018 10:41:45 12/23/2018 11:26:59 Benign essential hypertension 1216118 I10 at goal of less than 130/80 with meds Chronic ob structive pulmonary disease 23444604 J44.9 Mixed hyperlipidemia 267 264118 E78.2 well controlled with meds. [id number] Loree Fermin MD , [facility], OFFICE [address] [place] [address] [phone] 6 01/26/2019 15:24:57 01/28/2019 14:11:42 Benign essential hypertension 8872059 I10 at goal of less than 130/80 with meds Unequal bl ood pressure in arms 711669151 R09.89 [id number] Kathryn Daniels CMA FP, [facility], OFFICE [address] [place] [address] [phone] 6 04/22/2019 06:49:11 04/22/2019 13:31:39 Active or passive immunization 654183204 Z23 [id number] Loree Fermin MD FP, [facility], OFFICE [address] [place] [address] [phone] 6 07/03/2019 09:40:42 07/03/2019 10:44:13 Adult health examination 543273442 Z00.00 see Risk Assessment and Lifestyle Change Counseling section above Counseling 956893467 Z71 .9 Depression screening 171 986664 Z13.89 depression screening tool administer ed, entered into emr, scored and discussed, time greater than 7.5 minutes Mixed hyperlipidemia 267 655893 E78.2 well controlled with meds. 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 5509201769 9104 Z95.810 Jul 2016 Chronic ob structive pulmonary disease 11160364 J44.9 History of carotid endarterectomy 732038768 Z98.890 2014 - right Systolic h eart failure 931838607 I50.[address] Gannon - well controlled with meds Hypothyroidism 25940256 E03.9 Stenosis o f left subclavian artery 7674551489 0831292 I70.8 [id number] Loree Fermin MD FP, [facility], OFFICE [address] [place] [address] [phone] 6 01/01/2020 13:45:36 01/04/2020 10:07:19 Systolic heart failure 384844601 I50.[address] Gannon - well controlled with meds Chronic ob structive pulmonary disease 04182354 J44.9 Essential hypertension 41086801 I10 Posterior rhinorrhea 758 74747 R09.82 Unintentio nal weight loss 978227693 R63.4 [id number] Loree Fermin MD , [facility], OFFICE [address] [place] [address] [phone] 6 07/21/2020 13:29:33 07/22/2020 11:20:33 Adult health examination 849554820 Z00.00 see Risk Assessment and Lifestyle Change Counseling section above Counseling 543525237 Z71 .9 including cardiovasc ular risk reduction counseling Depression screening 171 413288 Z13.89 depression screening tool administer ed, entered into emr, scored and discussed, time greater than 7.5 minutes Screening for alcohol abuse 863548832 Z13.39 Advance di rective discussed with patient 404173099 Z71.89 Essential hypertension 44438103 I10 Mixed hyperlipidemia 267 806778 E78.2 Hypothyroidism 20974164 E03.9 Vaginal discharge 123155 006 N89.8 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 2328226313 9104 Z95.810 Jul 2016 Chronic ob structive pulmonary disease 04823840 J44.9 History of carotid endarterectomy 365782112 Z98.890 2015 - right Stenosis o f left subclavian artery 5712846511 7060443 I70.8 Atheroscle rosis of coronary artery without angina pectoris 9879829114 [address] Gannon Hyponatremia 38281770 E8 7.1 [id number] Loree Fermin MD , [facility], OFFICE [address] [place] [address] [phone] 6 01/23/2021 10:38:30 01/23/2021 11:55:21 Benign essential hypertension 6114121 I10 Chronic ob structive pulmonary disease 23062108 J44.9 Hypothyroidism 08700049 E03.9 Mixed hyperlipidemia 267 979985 E78.2 [id number] Loree Fermin MD , [facility], OFFICE [address] [place] [address] [phone] 6 02/17/2021 10:15:58 02/17/2021 11:03:34 Essential hypertension 08889995 I10 Chronic ob structive pulmonary disease 23170584 J44.9 Tatum - lesion 443800939 L84 [id number] Ernestina Hammer RN BSN , [facility], OFFICE [address] [place] [address] [phone] 6 05/04/2021 07:05:21 05/05/2021 09:51:17 Active or passive immunization 603621724 Z23 [id number] Kimberly Guillen NP FP, [facility], OFFICE [address] [place] [address] [phone] 6 08/02/2021 15:21:43 08/03/2021 12:51:06 Dyspnea 963314169 R06.00 Acute exac erbation of chronic obstructive pulmonary disease 823803979 J44.1 [id number] Loree Fermin MD , [facility], OFFICE [address] [place] [address] [phone] 6 08/18/2021 09:20:10 08/18/2021 11:19:55 Essential hypertension 03439153 I10 Mixed hyperlipidemia 267 712265 E78.2 Chronic ob structive pulmonary disease 96090755 J44.9 Nonischemi c congestive cardiomyopathy 6537734220 [address] Gannon - well controlled with meds Stenosis o f left subclavian artery 1152043035 8289368 I70.8 [id number] Loree Fermin MD , [facility], OFFICE [address] [place] [address] [phone] 6 09/14/2021 11:49:23 09/14/2021 15:05:55 Dyspnea on exertion 17112043 R06.09 Conjunctiv al hemorrhage of right eye 0070956098 68110 H11.31 [id number] Loree Fermin MD , [facility], OFFICE [address] [place] [address] [phone] 6 10/05/2021 15:41:13 10/13/2021 15:15:53 Essential hypertension 93999774 I10 Chronic ob structive pulmonary disease 21801241 J44.9 Pulmonary hypertension 40259014 I27.20 [id number] Loree Fermin MD , [facility], OFFICE [address] [place] [address] [phone] 6 01/01/2022 14:37:50 01/01/2022 15:34:55 Chronic obstructive pulmonary disease 86139300 J44.9 See HPI for detailed history GOLD air flow assessment grade {{1 2 3 4} } mMCR dyspnea scale grade {{0 1 2 3 4}} ABCD assessment tool group {{A, RX recommenda tion: LUCY (ex, Proair) or TRAV (ex, Atrovent) B, RX recommenda tion: LABA ( ex, Serevent) or LAMA (Ex, Spiriva) C, Rx recommende d: LAMA (ex, Spiriva) D , RX recommende d: LAMA (ex, Spiriva) or LAMA + LABA ex, Anoro Ellipta) or ICS + LABA (ex Advair)}} COPD is {{Stable, no change in symptoms, stable or improved exercise tolerance, no flareups W orse, symptoms worsening, worse exercise tolerance, flare ups}} Need to adjust/isma nge/add medication {{yes/COPD not controlled no/COPD controlled }} If yes, change in medication ____ Risk factor modificati on/further recommenda tions: Smoking cessation {{yes N/A} } Add oxygen therapy {{yes no}} Start/Incr ease exercise {{yes N/A} } Update vaccinatio n {{yes N/A} } Pulmonary rehab {{yes no}} Imaging needed {{none CXR chest CT}} Repeat PFT {{ yes no}} Rescue inhalers, ___ , are to be used as needed only, for shortness of breath, persistent coughing or wheezing. Maintenanc e inhalers, ___ , are to be used every day as instructed . Essential hypertension 39025737 I10 Active or passive immunization 375735919 Z23 Pt declines PPV23 11/24/21 Pt has been advised on Shingles vacc 11/24/21 Hyponatremia 58358392 E8 7.1 Nonischemi c congestive cardiomyopathy 7816008690 [address] Gannon - well controlled with meds Chronic hy poxemic respiratory failure 308157574 J96.11 Hypothyroidism 87168833 E03.9 [id number] DANIELLE COLLIER MD FP, [facility], OFF[address] [place] [address] 12/27/2021 15:01:34 12/28/2021 08:26:22 Active or passive immunization 933009772 Z23 pneumo, shingles, reminded Screening for malignant neoplasm of colon 490136655 Z12.11 Declined Chronic ob structive pulmonary disease 20792601 J44.9 exacerbati on. treated with steroid/Ab x. no indication for continued Abx.O2 level at rest - 90-91% while breathing deeply at rest.on walking - 88%albuter ol nebs and inhaler orderedsup plemental O2 will be ordered. See PCP on SaturdayAlre carlito on Stiolto (LAMA+LABA ), consider Trelegy (+inhaled steroid) Hyponatremia 29406880 E8 7.1 could be from COPD, or hypovolemi a (low Cl)Last Na in 2019 was 135recheck . Hydrate.if still low, consider further workup. Has appt with PCP on Saturday Atheroscle rosis of coronary artery without angina pectoris 5214426807 97956 I25.10 fatiguepos itive troponin at [facility].rechec k labs to ensure resolution . ok to do tomorrow.c all cardio to reschedule followup as soon as possible. Chronic hy poxemic respiratory failure 268600541 J96.11 due to COPD, requiring O2 on exertion. They're hopeful she won't need it for a prolonged period. Maybe just due to recent COPD flare.Foll ow up with PCP on Saturday as scheduled. [id number] Loree Fermin MD , [facility], OFF[address] [place] [address] 6 01/22/2022 11:27:38 01/22/2022 12:37:47 Chronic obstructive pulmonary disease 13203637 J44.9 See HPI for detailed history GOLD air flow assessment grade {{1 2 3 4} } mMCR dyspnea scale grade {{0 1 2 3 4}} ABCD assessment tool group {{A, RX recommenda tion: LUCY (ex, Proair) or TRAV (ex, Atrovent) B, RX recommenda tion: LABA ( ex, Serevent) or LAMA (Ex, Spiriva) C, Rx recommende d: LAMA (ex, Spiriva) D , RX recommende d: LAMA (ex, Spiriva) or LAMA + LABA ex, Anoro Ellipta) or ICS + LABA (ex Advair)}} COPD is {{Stable, no change in symptoms, stable or improved exercise tolerance, no flareups W orse, symptoms worsening, worse exercise tolerance, flare ups}} Need to adjust/isma nge/add medication {{yes/COPD not controlled no/COPD controlled }} If yes, change in medication ____ Risk factor modificati on/further recommenda tions: Smoking cessation {{yes N/A} } Add oxygen therapy {{yes no}} Start/Incr ease exercise {{yes N/A} } Update vaccinatio n {{yes N/A} } Pulmonary rehab {{yes no}} Imaging needed {{none CXR chest CT}} Repeat PFT {{ yes no}} Rescue inhalers, ___ , are to be used as needed only, for shortness of breath, persistent coughing or wheezing. Maintenanc e inhalers, ___ , are to be used every day as instructed . Hyponatremia 89157291 E8 7.1 Prediabetes 925060687 R7 3.03 [id number] Loree Fermin MD , [facility], OFF[address] [place] [address] 04/17/2022 12:16:15 04/17/2022 13:09:25 Chronic obstructive pulmonary disease 56358558 J44.9 See HPI for detailed history GOLD air flow assessment grade {{1 2 3 4} } mMCR dyspnea scale grade {{0 1 2 3 4}} ABCD assessment tool group {{A, RX recommenda tion: LUCY (ex, Proair) or TRAV (ex, Atrovent) B, RX recommenda tion: LABA ( ex, Serevent) or LAMA (Ex, Spiriva) C, Rx recommende d: LAMA (ex, Spiriva) D , RX recommende d: LAMA (ex, Spiriva) or LAMA + LABA ex, Anoro Ellipta) or ICS + LABA (ex Advair)}} COPD is {{Stable, no change in symptoms, stable or improved exercise tolerance, no flareups W orse, symptoms worsening, worse exercise tolerance, flare ups}} Need to adjust/isma nge/add medication {{yes/COPD not controlled no/COPD controlled }} If yes, change in medication ____ Risk factor modificati on/further recommenda tions: Smoking cessation {{yes N/A} } Add oxygen therapy {{yes no}} Start/Incr ease exercise {{yes N/A} } Update vaccinatio n {{yes N/A} } Pulmonary rehab {{yes no}} Imaging needed {{none CXR chest CT}} Repeat PFT {{ yes no}} Rescue inhalers, ___ , are to be used as needed only, for shortness of breath, persistent coughing or wheezing. Maintenanc e inhalers, ___ , are to be used every day as instructed . Essential hypertension 55544088 I10 Mixed hyperlipidemia 267 192411 E78.2 Active or passive immunization 011018274 Z23 Pt declines PPV23 11/24/21 Pt has been advised on Shingles vacc 11/24/21FLU - Secondary pulmonary hypertension 24063692 I27.21 Echo September 2021 [id number] Charla Zapien NP , [facility], OFF[facility] [address] [place] [address] 05/17/2022 15:24:34 05/18/2022 10:24:41 Cough 04822799 R05.9 Drink plenty of fluids. Eat healthy foods, lots of fruits and vegetables . Rest when you can. Take ibuprofen 400 mg or acetaminop hen 650 mg every 6 hours as needed for aches or headache and for fever. You can use a Neti pot for nasal congestion or sinus pain/press ure. Elderberry extract and Umcka are herbal remedies that have been shown to reduce length of flu-like symptoms. Gargling with salt water can help your immune system fight off the sore throat. Mix 1/2 teaspoon of salt with 8 oz warm water, gargle for 20-30 secs, and spit out the liquid. Repeat twice daily. Use Sugar free lozenges can help with a sore throat. Wash your hands frequently . Symptoms may worsen for the first 7-10 days before they improve For high fever (>101) for more than 3 days, worsening shortness of breath, cough productive of rust-color ed mucus (not dark yellow), or symptoms unchanged at two weeks, come back in for reassessme nt (urgent care available in [facility] office Sat 9-4 and Saturday 9-12 by appointmen t - call after 8AM for appt.) Dry cough can last for up to six weeks. covid test today. self isolate pending results Acute exac erbation of chronic obstructive pulmonary disease 466111866 J44.1 - Wheezing and dyspnea x2 days- no significan t increase in sputum production - O2 93% today, down from baseline- Lungs sounds with decreased air movement and exp wheeze- will start prednisone taper- follow up in 2 days if not improving. discussed weekend urgent care if needed- call anytime if your breathing worsening quit smoking years ago [id number] Lyly Beck DO , [facility], [address] [place] [address] 07/28/2022 12:35:49 07/28/2022 14:30:36 Chronic hypoxemic respiratory failure 753199278 J96.11 Pt on home 02. Systolic h eart failure 728226563 I50.20 Pt takes daily lasix. Suspected infection caused by novel Influenza A virus variant 9338442425 53392 Z20.828 Pt exposed to who is currenty hospitaliz ed with covid and flu. She has been testing negative for covid at home. Pt is on home 02 at 2.5L NC. Will treat for presumably flu- is outside of 48hour window, however patient is high risk with multiple chronic lung issues. Recommend symptomati c treatments including NSAIDS, semi-uprig ht sleep position, and nasal saline rinses with soft squeeze bottle or Neti pot. Honey is a safe and effective treatment for cough and can be especially helpful for nighttime cough. Warm salt water gargles 3x daily, and tea with lemon can help to relieve throat pain. Drink plenty of fluids and get adequate rest. Return for fevers > 101 for 3 days, worsening sinus pain, or failure to resolve. Cough 15293667 R05.9 Trial of tessalon perles. Call with new/worsen ing symptoms or if no improvemen t. Pt agrees with plan. Chronic ob structive pulmonary disease 36914540 J44.1 Using albuterol prn. Edema of l ower extremity 941703218 R60.0 As reported by patient. Call with new/worsen ing symptoms or if no improvemen t. Pt agrees with plan. [id number] MAX Ibrahim , [facility], OFF[address] [place] [address] 10/11/2022 14:50:15 10/12/2022 10:15:33 Essential hypertension 31262291 I10 BP above goal - reports this fluctuates often, not checking at home consistent akila have staff call tomorrow for home recheck when back on O2f/u with PCP as scheduled for med management in 2 weeks Acute exac erbation of chronic obstructive pulmonary disease 344077728 J44.1 given diminished lung sounds/no URI symptoms will treat with just prednisone for now, consider abx and/or updated CXR pending responsere start home O2 as below once homecontin ue inhalers as prescribed , reviewed use of nebulizer as neededcase discussed with PCP Dr. Montenegro - f/u with PCP as scheduled Hypothyroidism 95552939 E03.9 f/u with PCP as planned Systolic h eart failure 273658892 I50.20 lungs diminished but clear todayrecen t cardiology notes reviewed - continues on isosorbide without much change in symptoms, recently d/c magnesium supplement due to GI concernsre check bnpf/u with PCP as planned Underweight 327056774 E4 6 f/u with PCP as scheduled Hypoxia 713028367 J96.21 O2 86-89% today on room air, O2 tank on emptypt reports she has multiple oxygen tanks at home, will restart at home and monitor O2, to ER if O2 below baseline consistent ly <93-94% [id number] Loree Fermin MD , [facility], OFF[address] [place] [address] 10/23/2022 11:06:22 10/23/2022 12:20:51 Adult health examination 024147476 Z00.00 see Risk Assessment and Lifestyle Change Counseling section above Depression screening 171 785618 Z13.31 depression screening tool administer ed Screening for alcohol abuse 895599116 Z13.39 Alcohol use screening tool administer ed Chronic ob structive pulmonary disease 41106062 J44.9 See HPI for detailed history GOLD air flow assessment grade {{1 2 3 4} } mMCR dyspnea scale grade {{0 1 2 3 4}} ABCD assessment tool group {{A, RX recommenda tion: LUCY (ex, Proair) or TRAV (ex, Atrovent) B, RX recommenda tion: LABA ( ex, Serevent) or LAMA (Ex, Spiriva) C, Rx recommende d: LAMA (ex, Spiriva) D , RX recommende d: LAMA (ex, Spiriva) or LAMA + LABA ex, Anoro Ellipta) or ICS + LABA (ex Advair)}} COPD is {{Stable, no change in symptoms, stable or improved exercise tolerance, no flareups W orse, symptoms worsening, worse exercise tolerance, flare ups}} Need to adjust/isma nge/add medication {{yes/COPD not controlled no/COPD controlled }} If yes, change in medication ____ Risk factor modificati on/further recommenda tions: Smoking cessation {{yes N/A} } Add oxygen therapy {{yes no}} Start/Incr ease exercise {{yes N/A} } Update vaccinatio n {{yes N/A} } Pulmonary rehab {{yes no}} Imaging needed {{none CXR chest CT}} Repeat PFT {{ yes no}} Rescue inhalers, ___ , are to be used as needed only, for shortness of breath, persistent coughing or wheezing. Maintenanc e inhalers, ___ , are to be used every day as instructed . 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 6175085239 9104 Z95.810 Jul 2016 Hypothyroidism 92748387 E03.9 Stenosis o f left subclavian artery 4642938354 2508269 I70.8 Systolic h eart failure 481967584 I50.[address] Gannon - well controlled with meds Acute exac erbation of chronic obstructive pulmonary disease 935518352 J44.1 Atheroscle rosis of coronary artery without angina pectoris 6571704937 [address]25[address] Gannon Chronic hy poxemic respiratory failure 173573503 J96.11 Secondary pulmonary hypertension 71825651 I27.21 Echo September 2021 Underweight 345419583 E4 6 Nonischemi c congestive cardiomyopathy 7928338575 [address] Gannon - well controlled with meds [id number] Loree Fermin MD , [facility], OFF[address] [place] [address] 03/21/2023 14:18:53 03/22/2023 06:44:06 Active or passive immunization 610543448 Z23 Pneumo: aware at pharmacySh ingrix: aware at pharmacy Hypothyroidism 68484495 E03.9 Essential hypertension 60671437 I10 Chronic hy poxemic respiratory failure 499473558 J96.11 Chronic ob structive pulmonary disease 32179822 J44.9 See HPI for detailed history GOLD air flow assessment grade {{1 2 3 4} } mMCR dyspnea scale grade {{0 1 2 3 4}} ABCD assessment tool group {{A, RX recommenda tion: LUCY (ex, Proair) or TRAV (ex, Atrovent) B, RX recommenda tion: LABA ( ex, Serevent) or LAMA (Ex, Spiriva) C , Rx recommende d: LAMA (ex, Spiriva) D , RX recommende d: LAMA (ex, Spiriva) or LAMA + LABA ex, Anoro Ellipta) or ICS + LABA (ex Advair)}} COPD is {{Stable, no change in symptoms, stable or improved exercise tolerance, no flareups W orse, symptoms worsening, worse exercise tolerance, flare ups}} Need to adjust/isma nge/add medication {{yes/COPD not controlled no/COPD controlled }}If yes, change in medication ____ Risk factor modificati on/further recommenda tions:Smok ing cessation {{yes N/A} }Add oxygen therapy {{yes no}} Start/Incr ease exercise {{yes N/A} }Update vaccinatio n {{yes N/A} }Pulmonary rehab {{yes no}} Imaging needed {{none CXR chest CT}} Repeat PFT {{yes no}} Rescue inhalers, ___ , are to be used as needed only, for shortness of breath, persistent coughing or wheezing.M aintenance inhalers, ___ , are to be used every day as instructed . Open wound of chest wall 731424609 S21.101D Moderate protein-calorie malnutrition (weight for age 60-74 percent of standard) 437557149 E44.0 [id number] Loree Fermin MD , [facility], OFF[address] [place] [address] 04/25/2023 11:57:19 04/25/2023 12:52:32 Chronic obstructive pulmonary disease [id number] J44.9 See HPI for detailed history GOLD air flow assessment grade {{1 2 3 4} } mMCR dyspnea scale grade {{0 1 2 3 4}} IAM assessment tool group {{A, RX recommenda tion: LUCY (ex, Proair) or TRAV (ex, Atrovent) B, RX recommenda tion: LABA ( ex, Serevent) or LAMA (Ex, Spiriva) E , Rx recommende d: LAMA (ex, Spiriva) and LABA (ex. Serevant) or LAMA-LABA combinatio n (ex, Anoro Ellipta), add ICS if blood eosinophil s over 300 or concomitan t asthma (ex, Trelegy)}} COPD is {{Stable, no change in symptoms, stable or improved exercise tolerance, no flareups W orse, symptoms worsening, worse exercise tolerance, flare ups}}{{yes /COPD not controlled no/COPD controlled }} Need to adjust/isma nge/add medication {{yes/COPD not controlled no/COPD controlled }}If yes, change in medication ____ Risk factor modificati on/further recommenda tions:Smok ing cessation {{yes no}} Add oxygen therapy {{yes no}} Start/Incr ease exercise {{yes no}} Update vaccinatio n {{yes no}} Pulmonary rehab {{yes no}} Imaging needed {{yes no}} Repeat PFT {{yes no}} Rescue inhalers, ___ , are to be used as needed only, for shortness of breath, persistent coughing or wheezing.M aintenance inhalers, ___ , are to be used every day as instructed . 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 such as inogensent for inogenwill update CMfollow up as needed [id number] Loree Fermin MD , [facility], [address] [place] [address] 10/25/2023 11:00:15 10/25/2023 11:47:56 Adult health examination [id number] Z00.00 see Risk Assessment and Lifestyle Change Counseling section above Depression screening 171 579654 Z13.31 depression screening tool administer ed Screening for alcohol abuse 944119402 Z13.39 Alcohol use screening tool administer ed Chronic ob structive pulmonary disease 86124630 J44.9 See HPI for detailed history GOLD air flow assessment grade {{1 2 3 4} } mMCR dyspnea scale grade {{0 1 2 3 4}} IAM assessment tool group {{A, RX recommenda tion: LUCY (ex, Proair) or TRAV (ex, Atrovent) B, RX recommenda tion: LABA ( ex, Serevent) or LAMA (Ex, Spiriva) E , Rx recommende d: LAMA (ex, Spiriva) and LABA (ex. Serevant) or LAMA-LABA combinatio n (ex, Anoro Ellipta), add ICS if blood eosinophil s over 300 or concomitan t asthma (ex, Trelegy)}} COPD is {{Stable, no change in symptoms, stable or improved exercise tolerance, no flareups* Worse, symptoms worsening, worse exercise tolerance, flare ups}}{{yes /COPD not controlled no/COPD controlled }} Need to adjust/isma nge/add medication {{yes/COPD not controlled no/COPD controlled *}}If yes, change in medication ____ Risk factor modificati on/further recommenda tions:Smok ing cessation {{yes no*} }not applicable Add oxygen therapy {{yes no}} Start/Incr ease exercise {{yes* no} }Update vaccinatio n {{yes* no} } will need Prevnar 20 and will go to the pharmacyPu lmonary rehab {{yes no}} Imaging needed {{yes no*} } Repeat PFT {{yes no}} Rescue inhalers, albuterol, are to be used as needed only, for shortness of breath, persistent coughing or wheezing.M aintenance inhalers, anoro ellipta are to be used every day as instructed . Hypothyroidism 76655798 E03.9 TSH in range - continue levothyrox ine 88 mcg daily Essential hypertension 17591322 I10 at goal of less than 130/80, f/u in 6 monthscont inue losartan 50 mg BIDlabs discussed and kidney function and electrolyt es normal. Screening for malignant neoplasm of colon 863624750 Z12.11 declines colonoscop yagreeable to give stool sample, stool kit given Moderate protein-calorie malnutrition (weight for age 60-74 percent of standard) 116932144 E44.0 stable weight at 83 lbs. 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 trial of trelegy. f/u 1 mo w/ dr monten[place] Hypoxemia 158646268 R09. 02 checked oximetry. at rest without the oxygen after 5 minutes and her sat went from 96-93% Essential hypertension 18647571 I10 not at goal discussed. going up on losartan gave her lightheded ness( but the [id number] Loree Fermin MD , [facility], [address] [place] [address] 01/06/2024 12:13:44 01/08/2024 15:52:51 Chronic obstructive pulmonary disease 28381292 J44.9 See HPI for detailed history GOLD air flow assessment grade {{1 2 3 4} } mMCR dyspnea scale grade {{0 1 2 3 4}} IAM assessment tool group {{A, RX recommenda tion: LUCY (ex, Proair) or TRAV (ex, Atrovent) B, RX recommenda tion: LABA ( ex, Serevent) or LAMA (Ex, Spiriva) E , Rx recommende d: LAMA (ex, Spiriva) and LABA (ex. Serevant) or LAMA-LABA combinatio n (ex, Anoro Ellipta), add ICS if blood eosinophil s over 300 or concomitan t asthma (ex, Trelegy)}} COPD is {{Stable, no change in symptoms, stable or improved exercise tolerance, no flareups W orse, symptoms worsening, worse exercise tolerance, flare ups}}{{yes /COPD not controlled no/COPD controlled }} Need to adjust/isma nge/add medication {{yes/COPD not controlled no/COPD controlled }} If yes, change in medication ____ Risk factor modificati on/further recommenda tions: Smoking cessation {{yes no}} Add oxygen therapy {{yes no}} Start/Incr ease exercise {{yes no}} Update vaccinatio n {{yes no}} Pulmonary rehab {{yes no}} Imaging needed {{yes no}} Repeat PFT {{yes no}} Rescue inhalers, ___ , are to be used as needed only, for shortness of breath, persistent coughing or wheezing. Maintenanc e inhalers, ___ , are to be used every day as instructed . trelegy refilled Senile purpura [id number] D69.2 reassuranc e Moderate protein-calorie malnutrition (weight for age 60-74 percent of standard) 543948350 E44.0 stable weight at 83 lbs. [id number] Monica Blanchard , [facility], [address] [place] [address] 04/27/2024 10:38:04 04/27/2024 12:01:05 Active or passive immunization 525039454 Z23 Pneumo: aware at pharmacy Shingrix: [facility] 04/25/23 Influenza: [facility] 04/25/23/ Mass of left breast [id number] N63.20 diagnostic mammo and ultrasound ordered Abnormal f indings on diagnostic imaging of breast 050794902 R92.8 Stenosis o f left subclavian artery [id number] 6691727 I70.8 must get BP on the R arm Chronic ob structive pulmonary disease 18404521 J44.9 See HPI for detailed history GOLD air flow assessment grade {{1 2 3 4} } mMCR dyspnea scale grade {{0 1 2 3 4}} IAM assessment tool group {{A, RX recommenda tion: LUCY (ex, Proair) or TRAV (ex, Atrovent) B, RX recommenda tion: LABA ( ex, Serevent) or LAMA (Ex, Spiriva) E , Rx recommende d: LAMA (ex, Spiriva) and LABA (ex. Serevant) or LAMA-LABA combinatio n (ex, Anoro Ellipta), add ICS if blood eosinophil s over 300 or concomitan t asthma (ex, Trelegy)*} } COPD is {{Stable, no change in symptoms, stable or improved exercise tolerance, no flareups* Worse, symptoms worsening, worse exercise tolerance, flare ups}}{{yes /COPD not controlled no/COPD controlled }} Need to adjust/isma nge/add medication {{yes/COPD not controlled no/COPD controlled }}If yes, change in medication ____ Risk factor modificati on/further recommenda tions:Smok ing cessation {{yes no}} Add oxygen therapy {{yes* no} }Start/Inc rease exercise {{yes no}} Update vaccinatio n {{yes* no} }Pulmonary rehab {{yes no}} Imaging needed {{yes no}} Repeat PFT {{yes no}} Rescue inhalers, ___ , are to be used as needed only, for shortness of breath, persistent coughing or wheezing.M aintenance inhalers, ___ , are to be used every day as instructed . Essential hypertension 66876138 I10 at goal of less than 130/80, f/u in 6 monthscont inue losartan 50 mg BIDlabs discussed and kidney function and electrolyt es normal. Moderate protein-calorie malnutrition (weight for age 60-74 percent of standard) 622858401 E44.0 stable weight at 83 lbs. Goals Section Goal Description Progress Status Start Date LastModified by Organization Details LastModified Time Fluid Balance Management Exhibits no signs or symptoms related to fluid imbalance NoChange active 2022 Valeri Gibbs RN Information not available 03/15/2023 18:16:11 Diet Adherence Follows prescribed or recommended diet NoChange active 2022 Valeri Gibbs RN Information not available 03/15/2023 18:16:11 Blood Pressure Maintains blood pressure goal as defined by care team Regressing active 2022 Valeri Gibbs RN Information not available 12/18/2023 21:01:30 Health Concerns Section Related Observation LastModified by Organization Detai ls LastModified Time None Recorded Concern Status LastModified by Organization Details LastModified Time Congestive heart failure Active Valeri Gibbs RN Not Available 03/15/2023 18:09:29 Benign essential hypertension Active Valeri Gibbs RN Not Available 03/15/2023 18:13:25 Advance Directives Directive Y: Payers Encounter Date Sequence Insurance Name Policy Number Policy Goldman Covered Member ID Goldman Member ID Guarantor Name 05/17/2023 2 [place] Donn Patiño Jr [id number] Nelda E Talenda 05/17/2023 1 [place] [employer] [place] Nelda E Talenda [id number] Nelda E Talenda 10/25/2023 2 [place] Donn Patiño Jr [id number] Nelda E Talenda 10/25/2023 1 [place] [employer] Nelda E Talenda [id number] Nelda E Talenda 12/16/2023 2 [place] Donn Patiño Jr [id number] Nelda E Talenda 12/16/2023 1 [place] [email or web address] Nelda E Talenda [id number] Nelda E Talenda 01/06/2024 2 [place] Donn Patiño Jr [id number] Nelda E Talenda 01/06/2024 1 [place] [email or web address] Nelda E Talenda [id number] Nelda E Talenda 04/27/2024 2 [place] Donn Patiño Jr [id number] Nelda E Talenda 04/27/2024 1 [place] [email or web address] Nelda E Talenda [id number] Nelda E Talenda Notes Date Note Type Note Provider Name and Address Organization Details Recorded Time 3 text/html 05/17/23presents to discuss o2 has o2 at homehas portable tanks at homecan't handle themon 2.5L at home2.5L when out, uses 3L when walking needing something lighterneeds o2 constantly no recent cough or change in sobno recent illness MAX Olivia [address] [place] [address], [place], [phone], [facility] 05/19/2023 19:54:45 4 text/html Risk Assessment and Lifestyle Change Counseling (Medicare)Reported bypatient.Coronary Artery Disease Risk Assessment:Family History of Coronary Artery Disease; No personal history of diabetes; No history of peripheral vascular disease, AAA, or carotid disease; No personal history of coronary artery disease; [place] 10 year risk Breast Cancer Risk Assessment:No family history of breast cancer; No history of breast cancer or dcis Colon Cancer Risk Assessment:No family history of pre cancerous colon polyps or cancer; Patient has average risk for colon cancer Lung Cancer Risk Assessment:Has used cigarettes less than 30 pack years;Former smoker quit within last 15 years; No symptoms of Lung Cancer; No asbestos exposure Fracture Risk Assessment:No unexplained fracture; balance is normal; No use of corticosteroids; No anti-seizure medication; Has adequate calcium intake; Taking Vitamin D supplement; No chronic use of proton pump inhibitors Cognitive/Behavioral Risk Assessment:No personal history of mental illness; No family history of mental illness; Do you or anyone else have concerns about your memory? no Safety Risk Assessment:Has grab bars in bathroom; Has rails on steps; No falls; No evidence of abuse/neglect; Do you feel safe in your current relationship?YES Functional Status:Patient does not have trouble hearing the television or radio when others do not.; Patient does not have to strain or struggle to hear/understand conversations;Patient needs help with preparing meals,transportation, shopping, taking medicines, managing finances, or other activities of daily living.; Patient does not have visual loss that interferes with daily activities; Does not live alone; Patient was not unsteady and did not take longer than 30 seconds during the timed get up and go test.; Patient reports no falls in the past 6 months. Diet:Counseled about eating a diet low in trans and saturated fats and high in fiber, fruits and vegetables; Counseled about appropriate calcium intake and good dietary sources of calcium.; Counseled about the importance of maintaining a positive calcium balance and taking 1000 iu Vitamin D daily. Exercise counseling:Discussed the importance of daily physical activity; Discussed the importance of weight bearing exercise Safety:Counseled about protecting skin from the sun and lowering the risk of skin cancer accompanied by VICKIE MooreFdoubled losartan by Dr Gannon 100 mg but doing 50 mg BIDhere with Valeri Sotomayor also - pt wanted to meet herApril 24 - [facility] - Dr Troncoso is getting pacemaker, pt is very fatigued and unable to do anything Loree Fermin MD [address] [place], [address], [facility] 10/27/2023 11:34:40 4 text/html Accompanied by Teresa BFF Went from stiolto to anora- ? not as good. ? causing more SOB . Has been more SOB since Winter 2022. Called 12/12 Shortness of breath, advised to use O2; Got her pacer. Needs us to use oxygen. Barak Elder MD [address] [place], [phone], [facility] 12/16/2023 15:02:58 4 text/html here for f/u on COPD exacerbationchanged anoro ellipta to Trelegy and pt states it is effectiveaccompanied by Myranda daughter in lawcan walk and talk, not needing her oxygen for short distancesseeing Dr Gannon [facility] this week for echostable weight, drinks ensure once a daygood appetite per pt Loree Fermin MD [address] [place] [address], [phone], [facility] 01/06/2024 17:56:36 4 text/html COPDHPIReported bypatient.Onset/Evaluatio nDiagnosis is made based on PFT, spirometry confirmed post bronchodilator FEV1/FVC <0.7 ; Last PFT if known (Aug 2018) Symptom Assessmentno fever; no fatigue; no cough; no sputum Medicationscompliant with medications MRC Dyspnea Scalegrade 1, dyspnea when hurrying on the level or walking up a slight hill Medications:LABA ( long acting beta agonist, ex, Serevent (stiolto respimat); LAMA ( long acting anticholinergic/muscarini c agonist, ex, Spiriva) Vaccination Statusinfluenza; Pneumococcal; Pertussis/Tdap; Covid Vaccine; Zoster Vaccine ExerciseNo regular exercise Supplemental Oxygen?Supplemental oxygenVMG HypertensionReported bypatient.Duration:Age / year diagnosed (46 y/o) Context:No kidney disease; No history of CVA; No history of transient ischemic attacks; No peripheral vascular disease; No history of diabetes;Ischemic heart disease(68);Congestive heart failure Control:BP Goal less than (130/80); Treated with diet and exercise; Treated with medications; Patient understands medications are to lower blood pressure Compliance:Compliant with medications; Compliant with diet; Compliant with exercise; Compliant with follow-up visits Barriers to CareNo identified barriers to care Self Care:Using home BP monitor weekly home BPs range 130-140/85/90; brought in BP machine (10/05/21) Associated Symptoms:No chest pain; No shortness of breath; No edema; No fatigue; No palpitations; No decline in exercise capacity; No snoring Ability to Manage Self CareOn how confident the patient feels in ability to self manage condition the patient selects 9 with 10 being very confident and 1 being very low confidence The provider and patient discussed the Chronic Care Management program, including the services provided, and any fees associated with them. L breast mass noted 1 week agono pain, not sure if scar tissuepacemaker placed on the left and removed, now on the right side Loree Fermin MD [address] [place] [address], [phone], [facility] 04/27/2024 19:55:00 OBGyn Episode No OBEpisode recorded.
== END 2024-09-16 11:34 | disposition home or self-care (01) ==
PROVIDERS: PCP Family Medicine; Visit Provider Internal Medicine Cardiovascular Disease
DX: I50.9 Heart failure, unspecified (principal); I10 Essential (primary) hypertension
CPT/HCPCS: 93010; 99214

== ENCOUNTER → 2024-09-16 10:32 | Outpatient (BNVA) | payer MEDICARE, BC, SELFPAY | PROVIDERS: PCP Family Medicine; Visit Provider Internal Medicine Cardiovascular Disease | DX: I11.0 Hypertensive heart disease with heart failure (principal); I50.9 Heart failure, unspecified; I42.9 Cardiomyopathy, unspecified | CPT/HCPCS: 93005; 99212 ==

== ENCOUNTER → 2024-09-28 23:59 | Outpatient (BNV) | payer MEDICARE, BC, SELFPAY ==
--- NOTE | 2024-10-20 13:00 | A.OFFVIS_ITS ---
Intake Visit Reasons: Remote Device Check - Medtronic Allergies No Known Allergies Allergy (Verified 06/19/23 11:09) [facility] Medical History CAD (coronary artery disease) Cardiomyopathy CHF (congestive heart failure) Essential hypertension Hyperlipidemia Hypothyroidism ICD (implantable cardioverter-defibrillator) in place (~2016) Personal history of nicotine dependence PVC (premature ventricular contraction) Surgical History History of pubovaginal sling History of carotid endarterectomy History of implantable cardiac defibrillator (ICD) History of hernia repair History of appendectomy History of tonsillectomy History of heart artery stent Family History Father CVD (cardiovascular disease) Obesity Mother CVD (cardiovascular disease) Diabetes Social History Alcohol intake: current Alcohol intake frequency: 0-2 drinks per day Alcohol type: wine Patient Tobacco Use Status: Former Tobacco user Tobacco use type: Cigarette Years Smoked: 51 +/- Office Procedures Cardiac Device Check Cardiac Device Check Details: Medtronic permanent pacemaker. Left bundle-branch area pacing. Battery life 11.9 years. DDD mode. V paced 99.2%. A paced 0.4%. One episode of SVT recorded on 08/28/2024 duration was approximately 51 sec [id number] Cardiac Device Interrogation, pacemaker Procedure code (CPT) selection complete Assessment & Plan Assessment & Plan (1) ICD (implantable cardioverter-defibrillator) in place: Onset Date: ~2016 Comment: (Medtronic Amplia ICD/RANGE FEEDER - placed 2016, generator change 2022) Code(s): Z95.810 - Presence of automatic (implantable) cardiac defibrillator Category: Medical Plan Coding Level of Care Code Procedure Only Diagnoses ICD (implantable cardioverter-defibrillator) in place Z95.810 CPT Codes Cardiac Device Check - Cardiac Device 12: [id number] Cardiac Device Interrogation, pacemaker ([id number])
== END ==
PROVIDERS: PCP Family Medicine; Visit Provider Internal Medicine Cardiovascular Disease
DX: I47.10 Supraventricular tachycardia, unspecified (principal); Z95.0 Presence of cardiac pacemaker
CPT/HCPCS: 93294

== ENCOUNTER 2024-12-23 10:28 | Outpatient (AMB) | payer MEDICARE, BC, SELFPAY ==
[2024-12-23 10:47] VITALS: BP 160/82; PULSE 89; BMI 16.8
--- NOTE | 2024-12-23 10:47 | A.OFFVIS_ITS ---
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: No Accompanied by: Self / Same As Patient Allergies No Known Allergies Allergy (Verified 06/19/23 11:09) Medication List - Last Reconciled 12/24/24 by Horace Mata MD albuterol sulfate 2.5 mg inhalation Q4-6H PRN albuterol sulfate 90 mcg/actuation 1 puff inhalation Q4H PRN aspirin (Adult Low Dose Aspirin) 81 mg PO DAILY atorvastatin 40 mg PO DAILY calcium carbonate (Calcium 600) 600 mg PO DAILY carvedilol 6.25 mg PO BID cyanocobalamin (vitamin B-12) 1,000 mcg PO DAILY fluticasone propionate 50 mcg/actuation 1 spray intranasal DAILY furosemide 40 mg PO DAILY isosorbide mononitrate ER 30 mg PO DAILY levothyroxine (Levoxyl) 50 mcg PO DAILY multivitamin 1 tab PO DAILY olmesartan 5 mg PO BID omeprazole 40 mg PO DAILY prednisone Take 2 tablets for 4 days then 1 tablet for 4 days orally daily; umeclidinium-vilanterol 62.5-25 mcg/actuation (Anoro Ellipta) 1 inh inhalation DAILY HPI Comments Details: 79-year-old pleasant female here for follow-up. 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 She is status post COOK SHORT ORDER. She was seen for perioperative risk assessment. She underwent surgery for uterine prolapse under local anesthesia/spinal because she was high risk for general anesthesia. She had an echocardiogram in July 2018 [facility] which showed recovery of her left ventricular ejection fraction which was normal. She recently was found to have a unequal blood pressures in both arms with a 40 mm difference between the left and right arms. She underwent CTA at [facility] which showed 90% stenosis at the origin of left subclavian artery. She has some vertigo at baseline. No clear subclavian steal symptoms. She is here for follow-up. She has shortness of breath which is worse than before. 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 Her blood pressure in the office is elevated. As m entioned above she has left subclavian stenosis and blood pressure in that arm is unreliable. Right arm blood pressures are elevated and we discussed about starting isosorbide in addition to her medications that she is taking. No orthopnea or PND. No significant edema. She is using her inhalers. We decided to add isosorbide mononitrate 30 mg once a day to her regimen. She is returning for follow-up after that. She is saying that her dyspnea is improved. Her blood pressure also appears to be better. Her EKG interestingly showing PVCs. She has no symptoms and is completely asymptomatic and has no palpitations. I advised her to increase the carvedilol but she said previously when she increase the carvedilol she could not sleep at night. She is undergoing a lot of stress because her has multiple myeloma and has not been doing well. Recent device interrogation has shown that her battery life is close to 3 months now and she is seeing thoracic surgery to have a generator changed. She was started on magnesium for hypomagnesemia but had significant diarrhea and she has stopped using magnesium at this point. She has no chest pain or significant shortness of breath. Her is undergoing chemotherapy for multiple myeloma. He has significant memory problems and she is quite involved in and stressed by his care. 03/04/2023: Returns for follow-up. She was referred to thoracic surgery and underwent generator change for Bi V AICD. She had operative side issues and unfortunately had skin breakdown with exposure of the underlying device. This was because of her being really underweight. She went to [facility] and was subsequently transferred to [facility] where after discussion with electrophysiology and cardiothoracic surgery device was explanted. Because she had epicardial leads placed for Bi V AICD in the past, it was decided to start her on doxycycline long-term by Infectious Disease. She is currently in a rehab facility. Only complaint she has is that she gets significant pain at site at the time did dressings are changed and the wound is cleaned out. She has wound VAC in place. 06/19/2023: She returns for follow-up. Her wound over the left chest wall has healed. She is complaining of significant dyspnea with activity. She is saying she is unable to do any significant activity inside the house. She has 12 stair s to go down to the sellar and she has to take her time in going up and is huffing and puffing when she reaches to talk. She had quite complex issue after the Bi V ICD generator was changed which eroded through the skin and eventually was removed. She had wound VAC in place and was not mobile. Previously she had not done well then she stopped exercising or doing any activities and had more dyspnea and fatigue. She is complaining of very mild edema at the right ankle only. She is saying that her weight has been stable and she has not gained any weight. She is thin and quite underweight at baseline. 10/02/2023: She returns for follow-up. She is due to see Dr. Troncoso next week at [facility]. She is saying she has been progressively short of breath over the last month to 2. She is having trouble going upstairs. She has orthopnea. She also has noticed lower extremity edema and clearly has 1 to 2+ ankle edema at this point. Blood pressure is elevated. She was previously put on b.i.d. Lasix but she could not tolerate it due to dizziness. She is currently taking 20 mg of Lasix. She also has been getting some epigastric discomfort which is a burning sensation after eating. 10/02/2023: She returns for follow-up. Over the last week her weight has gone down from 85.2 lb 282 lb. She is taking 40 mg of Lasix at this point. Blood pressure is still elevated. She is saying that she is still quite short of breath. On exam today she is also wheezy. She has known history of COPD but does not see pulmonology. She has not interested in seeing a voice studies director. Muna borrego is taking Anoro Ellipta and albuterol. She also is using albuterol inhalers. She said she has been coughing 2 over the last week or 2. 06/08/2024: She is here for follow-up. Her echocardiography in 01/02/2024 has shown ejection fraction of 40 45% which is significantly improved since she had the left bundle-branch area pacing. Clinically she has been doing well. She is saying her breathing has improved significantly. She has gained some weight she had some dietary indiscretions mostly in the last couple of days because she had a Thanksgiving constitution party at her home. Her blood pressure is elevated. She has a home blood pressure cuff but it was a wrist cuff and mostly her blood pressures are recorded in 140s. She currently is in 160s systolic and manual blood pressure is similar. She was previously told to take losartan 50 mg twice a day but she said she can not tolerate it twice a day. She also has complaining that when she takes her medications in the morning she gets dizzy. 09/16/24: She is here for follow-up. She has elevated blood pressures. On last visit we discussed about increasing losartan to 50 mg twice a day. She said she did not do that because she was worried her blood pressure will drop and she will get dizzy. No shortness of breath or any other concerns currently. 12/23/24: Here for follow-up. Recent she was at [facility] and she entered with left-sided drain from the chest. She had surgery COOK SHORT ORDER done and the epicardial lead at that time. There was concern that drainage is close to the epicardial lead which could be felt under the skin. She was transferred to [facility] and had Cardiothoracic surgery consultation. At that time it was felt that there is no clear signs of infection and there is a small sinus in the skin. She is saying that she gets yellowish discharge from this sinus but has not had any pus or signs of infection. She is denying any significant shortness of breath. She is significantly hypertensive and recently had change in her medications by her primary care doctor and she is on olmesartan 5 mg twice a day and losartan has been discontinued. [facility] Medical History Hyperlipidemia Hypothyroidism Personal history of nicotine dependence PVC (premature ventricular contraction) Essential hypertension CAD (coronary artery disease) Cardiomyopathy CHF (congestive heart failure) ICD (implantable cardioverter-defibrillator) in place (~2017) Surgical History History of pubovaginal sling History of carotid endarterectomy History of implantable cardiac defibrillator (ICD) History of hernia repair History of appendectomy History of tonsillectomy History of heart artery stent Family History Father CVD (cardiovascular disease) Obesity Mother CVD (cardiovascular disease) Diabetes Social History Alcohol intake: current Alcohol intake frequency: 0-2 drinks per day Alcohol ty pe: wine Patient Tobacco Use Status: Former Tobacco user Tobacco use type: Cigarette Years Smoked: 50 +/- Review of Systems Const Denies chills, Denies fatigue, Denies fever(s), Denies frequent falls, Denies weakness, Denies weight gain and Denies weight loss ENT Denies dizziness Card Denies chest pain, Denies leg edema, Denies lightheadedness, Denies palpitations, Denies dyspnea and Denies dyspnea on exertion Resp Denies cough, Denies dyspnea and Denies dyspnea on exertion GI Denies hematochezia Musc Denies abnormal gait, Denies muscle weakness, Denies numbness, Denies radiating pain into limb and Denies tingling Neuro Denies abnormal gait, Denies dizziness, Denies frequent falls, Denies numbness, Denies tingling and Denies weakness Endo Denies fatigue and Denies palpitations Physical Exam Vital Signs: Last Vital Signs Pulse 89 12/23/24 10:47 BP 160/82 H 12/23/24 10:47 BMI result Body Mass Index 16.8 GENERAL APPEARANCE: Thin, frail lady. Skin: Left chest wall sinus with small amount of drainage on the lateral aspect. No signs of infection NECK/THYROID: no carotid bruit, no jugular venous distention. HEART: no murmurs, regular rate and rhythm, S1, S2 normal. LUNGS: Clear to auscultation. ABDOMEN: normal, bowel sounds present, soft, nontender, nondistended. EXTREMITIES: No edema. PERIPHERAL PULSES: equal. NEUROLOGIC: nonfocal, , alert and oriented. Assessment & Plan Assessment & Plan (1) Chronic heart failure: Code(s): I50.9 - Heart failure, unspecified Category: Medical (2) Sinus of skin: Code(s): L98.8 - Other specified disorders of the skin and subcutaneous tissue Category: Medical Plan [age] year female who is here for follow-up. She has background history of left bundle-branch block related cardiomyopathy and currently has improved with bundle-branch area pacing. Not in heart failure by examination. Blood pressure is significantly elevated. She had change in her medications recently and her losartan was stopped and she was started on olmesartan. I think this change may not be enough to control her blood pressure. I am adding spironolactone 25 mg daily. She will need repeat blood workup in couple of weeks. There is some concern about abandoned epicardial lead erosion in the subcu taneous tissue. There is a small sinus tract but no hardware is obviously present in the tract. No signs of infection currently. I think this may heal with secondary intention as there is some granulation tissue inside the trach. Etiology is unclear but it is possible that the epicardial lead is the cause. So far she has been seen by Cardiothoracic surgery and a conservative approach has been advised. I have discussed with her in detail about signs/symptoms of infection and she will report to us in case she noticed anything. Thank you for allowing me to participate in the care of your patient. Please feel free to contact me if you have any questions. Medications: New spironolactone 25 mg PO DAILY 90 tabs 3RF I10 - Essential (primary) hypertension Coding Level of Care Code Est Pt Level 4 (48760) Complex EM visit Add On G2211 Diagnoses Chronic heart failure I50.9 Sinus of skin L98.8
--- OUTSIDE RECORDS SUMMARY | 2024-12-23 11:55 | XMS_ITS | Continuity of Care Document ---
Author Organization [facility], , [facility], OFFICE Address [address] [place] [address] Care Team Providers Care Automotive Project Engineer Name Role Phone LOREE KELLY Primary Care Provide r ARLENE VELA Lead Burner Helper JUSTICE MATA Installation Tech MAUDE CHRISTINE Head Screen Worker ARLENE VELA Urogynecologist NEHA MEEK Installation Tech MAUDE DOVE OTHER ANIKA GIBBS OTHER [phone] NEHA WITT Installation Tech Assessment Encounter Date Assessment Date Assessment LastModified by Organization Details LastModified Time 12/21/2024 12/21/2024 We reviewed your chronic medical conditions and updated your plan for management. Please review instructions below. We have discussed your personal goals and discussed how to reach your goals. Please reach out to us via the Portal or phone if you have questions about your chronic conditions or if you or your caregivers require assistance in meeting your goals. Please visit our website [email or web address] for more patient resources. As part of your care plan, we will help coordinate your ongoing medical needs, arrange for durable medical equipment, renew prescriptions and necessary prior authorizations, facilitate getting referrals and collaborating with specialist, referrals for VNA services. [email or web address] Not available 12/18/2024 16:57:28 Plan of Treatment Reminders Order Date Submit Date Provider Last Modified By Organization Details Last Modified Time Details Appointments Follow Up, 15 2024 12:15P Ade Lee MD Not available Not available Not available Wellness Visit 30 2025 08:30A M Loree Lee MD Not available Not available Not available Lab None recorded. Referral None recorded. Procedures None recorded. Surgeries None recorded. Imaging None recorded. Medication Orders olmesarta n 5 mg tablet 2024 025 [id number], [address] [facility], [place], [address], 12/21/2024 10:09:04 Patient TargetsNo targets recorded. Patient Instructions Encounter Date Encounter Id Patient Instructions Last Modified By Organization Details Last Modified Time 12/21/2024 [id number] lis Not available 12/21/2024 21:12:47 Reason for Referral None Reported. Results Created Date Observation Date Name Description Value Unit Range Abnormal Flag Note LastModifiedBy Organization Detail LastModifiedTime 12/22/19 25 11/28/2024 CT, chest , w/ contr ast No observ ation record ed. josefina [facility] General Surgery [address], [place], [address], 12/23/2024 11:26:46 Result Notes None recorded. Problems Name Problem SNOMED Code Status Onset Date Resolution Date Notes Provider Name and Address Organization Details Recorded Time Arteriti s 65746096 Active 2011 MD [place], [address], [facility] 17:39:52 Coronary arterios clerosis 66669135 Active 2013 [place], [address], [facility] 17:39:52 Congesti ve heart failure 45036962 Completed 201306/24/2018 Removal Reason: revised [place], [address], [facility] 20:49:18 Ischemic heart disease 925349301 Active [place] [address], [facility] 17:39:52 Carotid artery stenosis 87948402 Completed 201406/24/2018 Removal Reason: revised MD [place], [address], [facility] 20:49:04 Acute exacerba tion of chronic obstruct oliva pulmonar y disease 563651980 Completed 09/03/2017 MD [place], [address], [facility] 09:38:03 Uterine prolapse 81295257 Active 2015 MD Anj[place], [address], [facility] 17:39:52 Chronic obstruct oliva pulmonar y disease 64661829 Active 2016 Exacerba tion per d/c summary [facility] ER 12/19/21, possible viral bronchit is Melissa borrego RN [facility], [facility] 2 10:20:38 Cardiomy opathy 46794311 Completed 201608/19/2021 Removal Reason: revised to specific CM MD [place], [address], [facility] 08:10:17 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 33751265387 104 Active 2017 MD [place], [address], [facility] 05:17:04 History of carotid endarter ectomy 346835056 Active 2017 [place], [address], [facility] 20:49:50 Left bundle branch block 59423242 Active 2017 [place], [address], [facility] 20:49:51 Systolic heart failure 175379118 Active 2017 Loree Lee MD [address] [place], [place] [address], [address], [facility] 20:49:54 Stenosis of left subclavi an artery 74395802931 798069 Active 2018 MD [place], [address], [facility] 05:17:04 Hypothyr oidism 09433857 Active 2018 Loree Lee MD [address] [place] [address] [place], [address], [facility] 05:17:04 Essentia l hyperten yesika 90068213 Active 2019 MD [facility] [place], [address], [facility] 05:17:04 Atherosc lerosis of coronary artery without angina pectoris 42010232854 4103 Active 2020 MD [facility] [place], [address], [facility] 08:35:50 Nonische mathew congesti ve cardiomy opathy 91032667933 4 Active 2021 MD Anjum [place], [address], [facility] 08:10:03 Hyponatr emia 61184634 Active 2021 MD [place] [address], [facility] 16:09:00 Hypergly cemia 06348982 Active 2021 MD [place] [address], [facility] 16:16:58 Chronic hypoxemi c respirat ory failure 715731928 Active 2021 DANIELLE COLLIER MD [address] [place] [address] [place], [address], [facility] 16:53:17 Secondar y pulmonar y hyperten yesika 28276542 Active 2021 Loree Lee MD [address] [place] [address] [place], [address], [facility] 09:41:16 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 [facility] Veronica Ringer null, [facility] 3 09:33:06 Malfunct ion of cardiac pacemake r 090805196 Active 2022 [facility] Veronica Ringer null, [facility] 3 09:33:24 Open wound of chest wall 216512890 Active 2022 [facility] Veronica Ringer null, [facility] 3 09:33:41 Wound dehiscen ce 267646459 Active 2022 [facility] Veronica Ringer null, [facility] 3 09:33:58 Dyspnea 832285761 Active 2022 [facility] Veronica Ringer null, [facility] 3 09:34:30 Pain 76952012 Active 2022 [facility] Veronica Ringer null, [facility] 3 09:34:43 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, [facility] Veronica Ringer null, [facility] 3 09:45:37 Acute congesti ve heart failure 86881090 Active 2022 [facility] Veronica Ringer null, [facility] 3 09:45:59 Long-ter m drug therapy Active 2022 lifelong doxycycl ine, pt case #[id number] 4 MD [place], [address], [facility] 16:59:44 Moderate protein- calorie malnutri tion (weight for age 60-74 percent of standard ) 239262714 Active 2023 Loree Lee MD [address] [place], [place] [address], [address], [facility] 11:21:43 Ischemic congesti ve cardiomy opathy 551517994 Active 2023 Loree Lee MD [address] [place] [address] [place], [address], [facility] 11:28:34 Senile purpura 70293915 Active 2023 Loree Lee MD [address] [place] [address] [place], [address], [facility] 17:54:44 Mixed hyperlip idemia 466060334 Active 2007 Efrain Haile MD [address] [place] [address] [place], [address], [facility] 17:39:52 Disorder of skeletal system 48196400 Completed 200606/03/2013 Efrain Haile MD [address] [place] [address] [place], [address], [facility] 17:39:52 Precordi al pain 98348052 Completed 200607/30/2011 Efrain Haile MD [address] [place] [address] [place], [address], [facility] 17:39:52 Cardiova scular system problem 151877258 Completed 200607/30/2011 Efrain Haile MD [address] [place] [address] [place], [address], [facility] 17:39:52 Lateral epicondy litis 538415779 Completed 200807/30/2011 Efrain Haile MD [address] [place] [address] [place], [address], [facility] 17:39:52 Osteopor osis 10964932 Completed 200807/30/2011 Efrain Haile MD [address] [place] [address] [place], [address], [facility] 17:39:52 Elevated blood-pr essure reading without diagnosi s of hyperten yesika 113687371 Completed 200607/30/2011 Efrain Haile MD [address] [place] [address] [place], [address], [facility] 17:39:52 Acute cystitis 98155724 Completed 200007/30/2011 Efrain Haile MD [address] [place] [address] [place], [address], [facility] 17:39:52 Benign essentia l hyperten yesika 0161941 Completed 200601/01/2020 Removal Reason: revised Loree Lee MD [address] [place], [place] [address], [address], [facility] 13:58:17 Tobacco user 299226945 Completed 200709/03/2017 Efrain Haile MD [address] [place] [address] [place], [address], [facility] 09:37:57 Lymphade nopathy 13328111 Completed 06/03/2013 Efrain Haile MD [address] [place] [address] [place], [address], [facility] 17:39:52 Problem Notes None recorded. Procedures Surgical History Date Name Laterality Status Provider Name and Address Organization Details Recorded Time 01/06/20 24 G2211 completed Loree Lee MD [facility] [place], [address], [facility] 01/06/2024 17:56:20 12/16/19 Oxygen Administration completed Janet Galan LPN [facility] 12/16/2023 14:45:17 10/25/19 24 Medicare Wellness Visit completed Shonna Chun MA [facility] 10/25/2023 09:52:25 03/21/20 23 Post hospital/SNF follow-up/Transiti onal Care completed Shonna Chun MA [facility] 03/21/2023 09:05:37 02/23/20 23 Other (specify) completed Loree Lee MD [address] [place] [address], [address], [facility] 03/18/2023 18:13:24 10/24/19 23 Medicare Wellness Visit completed Shonna Chun MA [facility] 10/23/2022 09:04:33 10/24/19 23 Oxygen Administration completed Eva Martinez RN [facility] 10/23/2022 13:30:28 12/28/19 22 Oxygen - Order completed Adeline Marie RN [facility] 12/27/2021 16:47:38 09/15/19 22 Oxygen - Order completed Shonna Chun MA [facility] 09/14/2021 12:12:12 07/21/19 21 Medicare Wellness Visit completed [facility] [place] 07/21/2020 13:31:27 07/21/19 21 COPD Screening completed [facility] 07/21/2020 13:41:53 07/21/19 21 prevention-cardiov ascular risk reduction counseling completed [facility] 07/21/2020 13:31:27 07/21/19 21 prevention-annual alcohol misuse screening completed [facility] 07/21/2020 13:31:27 07/21/19 21 Advanced Care Planning completed Loree Lee MD [address] [place] [address], [address], [facility] 07/21/2020 14:21:47 01/01/20 20 COPD Screening completed [facility] 01/01/2020 13:46:08 07/03/20 19 Medicare Wellness Visit completed Robyn Snowden [facility] 07/03/2019 09:46:58 12/24/19 19 COPD Screening completed Loree Lee MD [address] [place] [address], [address], [facility] 12/23/2018 16:10:32 11/22/19 19 Other (specify) completed Loree Lee MD [address] [place] [address], [address], [facility] 12/23/2018 16:18:15 08/25/19 19 COPD Screening completed Mervat Tamayo [facility] 08/25/2018 08:54:04 07/28/19 19 Post hospital/SNF follow-up/Transiti onal Care completed Mervat Tamayo [facility] 07/28/2018 11:38:42 06/24/20 18 Medicare Wellness Visit completed Mervat Tamayo [facility] 06/24/2018 11:06:23 02/07/20 18 Nebulizer Tx completed Petra Koenig [facility] 02/06/2018 16:37:17 08/10/19 17 Other (specify) completed Efrain Haile MD [address] [place] [address], [address], [facility] 08/11/2016 17:04:42 04/09/20 16 Medicare Wellness Visit completed Aleisha Simon MA [facility] 04/09/2016 10:15:12 11/30/19 16 Smoking cessation counseling completed Efrain Haile MD [address] [place] [address], [address], [facility] 11/30/2015 12:09:57 11/30/19 16 Medicare Wellness Visit completed Aleisha Simon MA [facility] 11/30/2015 11:48:48 08/08/19 16 Smoking cessation counseling completed Efrain Haile MD [address] [place] [address], [address], [facility] 08/08/2015 12:05:33 07/04/20 15 Nebulizer Tx completed Chester De La Rosa LPN [facility] 07/04/2015 14:01:59 11/25/19 15 Medicare Wellness Visit completed Aleisha Simon MA [facility] 11/24/2014 11:44:26 10/20/19 14 Smoking cessation counseling completed Efrain Haile MD [address] [place], [address], [facility] 10/19/2013 09:12:09 10/20/19 14 Medicare Wellness Visit completed Aleisha Simon MA [facility] 10/19/2013 09:07:27 10/16/19 13 Smoking cessation counseling completed Efrain Haile MD [address] [place], [address], [facility] 10/15/2012 16:59:22 10/16/19 13 Medicare Wellness Visit completed Aleisha Simon MA [facility] 10/15/2012 15:55:23 07/30/19 12 Medicare Wellness Visit completed Aleisha Simon MA [facility] 07/30/2011 11:28:36 06/16/20 10 Treatment and Advice completed Guille Ruiz, PT [address] [place], [address], [facility] 06/16/2010 10:38:54 06/02/20 10 Treatment and Advice completed Guille Ruiz, PT [address] [place], [address], [facility] 06/02/2010 10:57:43 05/26/20 10 Treatment and Advice completed Guille Ruiz, PT [address] [place], [address], [facility] 05/26/2010 11:01:14 05/18/20 10 Treatment and Advice completed Guille Ruiz, PT [address] [place], [address], [facility] 05/18/2010 11:37:33 Imaging Results None recorded. Procedure Notes None recorded. Medical Equipment None Reported. Allergies No known drug allergies Medications Name Sig Start Date Stop Date Status Note LastModified by Organization Details LastModified Time losartan 50 mg tablet TAKE ONE TABLET BY MOUTH TWICE DAILY FOR HIGH BLOOD PRESSURE 12/21 completed Patient takes 75mg Not Available Not Available Not Available furosemid e 40 mg tablet 1/2 TAB QDAY 09/03 completed dose decrease change Not Available Not Available Not Available atorvasta tin 40 mg tablet Take 1 tablet every day by oral route. 2024 active Not Available Not Available Not Avai lable Augmentin 875 mg-125 mg tablet Take 1 tablet every 12 hours by oral route. 2011 active Not Available Not Available Not Avai lable atorvasta tin 80 mg tablet Take 1 tablet every day by oral route at bedtime. active lower dose change Not Available Not Available Not Available carvedilo l 6.25 mg tablet TAKE ONE TABLET BY MOUTH TWICE DAILY 2024 active Not Available Not Available Not Avai lable doxycycli ne hyclate 100 mg capsule TAKE [...] 10/24 completed started on 10/09/23 ordered by [facility]. tapered dose. Not Available Not [...] as needed. 04/25 completed new. per 3 [facility] med ok list- per [facility], not taking. CT Not Available [...] TAKE 1 TABLET BY MOUTH EVERY DAY 2024 active Not Available Not Available Not Avai lable benzonata te 100 mg capsule TAKE 1 CAPSULE BY MOUTH THREE TIMES A DAY NEEDED FOR 5 DAYS 10/23 completed done 10/11/22 lesvia Not Available Not Available Not Available levothyro xine 50 mcg tablet Take 1 tablet every day by oral route. 03/25 completed dose decrease per 03/14/23 [facility] med dc list, pt is taking 75mcg [...] Not Available Not Available No t Available olmesarta n 5 mg tablet Take 2 tablets every day by oral route for 30 days, for hyperten yesika. 2024 active Not Available Not Available Not Avai lable Doxycycli ne 100 mg capsule Take 1 [...] Not Available No t Available Fluad Quad [id number] (65yr up)(PF) 60 mcg (15 mcg x 4)/0.5mL IM syringe ADM 0.5ML IM UTD 01/23 completed Not Available Not Available Not Available Vitals Date Recorded Body height Body mass index (BMI) Body weight Heart rate Systolic blood pressure Diastolic blood pressure Systolic blood pressure Diastolic blood pressure Provider Name and Address Organization Details Last Updated DateTime 5 159.39 cm 17.2 kg/m2 16866.5 7 g 100 /min 148 mm[Hg] 70 mm[Hg] 145 mm[Hg] 80 mm[Hg] Corrie House MA [facility] 5 09:48:11 Social History Question Answer Notes LastModified by Organizat ion Details LastModified Time Tobacco Smoking Status Former Smoker quit Spring 2014 Loree Lee MD [address] [place] [address], [address], [facility] 07/03/2019 10:18:26 Do You Have An Advance Directive? Yes Information not available 11/02/2008 Are You Blind Or Do You Have Difficulty Seeing? No Information not available 10/19/2013 What Is Your Level Of Caffeine Consumption? Moderate 1-1.5 Cups Of Coffee Per Day Information not available 10/19/2013 How Much Tobacco Do You Chew? None [id number] Information not available 05/31/2011 Are You Deaf Or Do You Have Serious Difficulty Hearing? No Information not available 10/19/2013 What Type Of Diet Are You Following? REGULAR [id number] Information not available 05/31/2011 Which Illicit Or Recreational Drugs Have You Used? None Information not available 05/31/2011 Education 12 Inform ation not available 05/31/2011 When Did You Quit Smoking? 11-15yearssinc elastcigarette Smoked For 50 Yrs At 10 Cig/day - 25 Pack Year; Quit 2015, [email or web address] Information not available 10/20/2024 How Many Days In The Past Year Have You Had A Heavy Drinking Consumption (4+ Female, 5+ Male)? 0 Information not available 10/15/2012 Are There Any Guns Present In Your Home? No Information not available 10/19/2013 Live Alone Or With Others? With Others Donn Carlos Alberto Myeloma [email or web address] Information not available 10/20/2024 Patient Has Health Care Proxy Signed And In Chart Yes 05/08/24 Updated HCP Added To Chart Information not available 11/12/2018 Case Referred By Other: S/p Hospital Discharge Information not available 09/12/2017 Reason For Case Management Referral: Poorly Controlled Chronic Disease: Information not available 09/12/2017 Date Care Plan Initiated 05/27/2017 Information not available 09/12/2017 Case Management Needs Identified #1 Disease Management Education Information not available 09/12/2017 Case Management Plans/Interven tions #1 Health Teaching Pt Will Call Pcp/CM If New Symptoms, Questions Or Concerns, If She Has Trouble Obtaining Medications Or Increase In Weight, More Trouble Breathing, Leg Swelling. Information not available 09/12/2017 Care Plan Status Of Goals Modified 09/12/17 Information not available 09/12/2017 Case Management Needs Identified #2 Other: Care Coordination Information not available 09/12/2017 Case Management Plans/interven tions #2 Coordination Of Services Ensure Pt Has Appts Needed And Specialty Appointments, Act As Liaison If Pt Has Worrisome Symptoms Or Needs Advice. 09/12/2017: Pcp Retiring Soon And Pt Would Like Support Of Tom MOMIN As She Transitions To [facility] After 30+ Years With The Same Provider. Information not available 09/12/2017 MOLST Form Signed And In Chart 11/10/2018 Information not available 11/12/2018 CCM Consent Discussion 04/27/2024 [email or web address] Information not available 04/27/2024 Marital Status M. 1965 lis Inf ormation not available 11/10/2018 Mosquito Repellent Used Routinely Yes [email or web address] Information not available 07/03/2019 What Was The Date Of Your Most Recent Tobacco Screening? 12/21/2024 [email or web address] Information not available 12/21/2024 How Many Children Do You Have? 2 B. 1967, 1970 [email or web address] Information not available 07/03/2019 What Is Your Current Pack Years? 20-29packyears 25 Pack Year Information not available 10/27/2023 What Is Your Relationship Status? Donn October 2024 Information not available 12/21/2024 Seat Belts Used Routinely Yes [id number] Information not available 05/31/2011 Are You Sexually Active? Yes [id number] Information not available 05/31/2011 Smoke Alarm In Home Yes [id number] Information not available 05/31/2011 At What Age Did You Start Smoking Tobacco? 13 [id number] Information not available 05/31/2011 How Much Tobacco Do You Smoke? 0.5 PPD [email or web address] Information not available 07/03/2019 What Types Of Sporting Activities Do You Participate In? None [id number] Information not available 05/31/2011 General Stress Level High Information not available 07/03/2019 Do You Use Sunscreen Routinely? Yes When Needed Information not available 03/29/2010 How Many Years Have You Smoked Tobacco? 50 lis Information not available 10/27/2023 Do You Have Difficulty Walking Or Climbing Stairs? No Information not available 10/19/2013 Sex: Female Functional Status Question Answer Note LastModified by Organizat ion Details LastModified Time Do you or have you ever used any other forms of tobacco or nicotine? No [email or web address] Information not available 01/01/2022 What is your level of alcohol consumption? Moderate 3 oz of wine per night [email or web address] Information not available 07/03/2019 Do you have difficulty doing errands alone? No Information not available 10/19/2013 What is your occupation? retired 7 Information not available 05/31/2011 Do you have difficulty dressing or bathing? [...] Sister Heart disease 70 fall 2021 [email or web address] Not available 10/23/2022 11:53:33 Notes:father- angina, sister [...] influenza, unspecified formulation 2 completed Not Available [facility] 12/19/2021 21:27:39 Influenza, split virus, trivalent, preservative 1 completed Not Available [facility] 08/01/2019 02:18:12 pneumococcal polysaccharide PPV23 1 completed Not Available [facility] 08/01/2019 02:14:31 influenza, unspecified formulation 3 completed Not Available [facility] 12/19/2021 21:27:39 influenza, unspecified formulation 4 completed Not Available [facility] 12/19/2021 21:27:39 Td(adult) unspecified formulation 5 completed Not Available [facility] 12/19/2021 21:27:39 influenza, unspecified formulation 5 completed Not [facility] 12/19/2021 21:27:39 influenza, unspecified formulation 6 completed Not [facility] 12/19/2021 21:27:39 influenza, unspecified formulation 7 completed Not Available [facility] 12/19/2021 21:27:39 influenza, unspecified formulation 8 completed Not Available [facility] 12/19/2021 21:27:39 zoster live 2 completed Not Available [facility] 08/01/2019 02:26:41 Influenza, split virus, trivalent, preservative 2 completed Not Available [facility] 08[facility]01/2019 02:29:18 Influenza, split virus, trivalent, PF 3 completed Not Available [facility] 08/01/2019 02:25:03 Influenza, high-dose, trivalent, PF 4 completed Not Available [facility] 08/01/2019 02:19:19 Influenza, high-dose, trivalent, PF 5 completed Not Available [facility] 08/01/2019 02:20:10 Td (adult), 5 Lf tetanus toxoid, preservative free, adsorbed 6 completed Not Available [facility] 08/01/2019 02:20:15 Pneumococcal conjugate PCV 13 6 completed Not Available [facility] 08/01/2019 02:33:41 Influenza, high-dose, trivalent, PF 6 completed Not Available [facility] 08/01/2019 02:20:44 Influenza, high-dose, trivalent, PF 7 completed Not Available [facility] 08/01/2019 02:22:02 Influenza, high-dose, trivalent, PF 8 completed Not Available [facility] 08/01/2019 02:29:52 Influenza, high-dose, trivalent, PF 9 completed Not Available [facility] 08/01/2019 02:24:08 Influenza, high-dose, quadrivalent, PF 1 completed Ernestina Hammer [employer] [facility], [facility] 05/04/2021 11:17:05 Influenza, high-dose, quadrivalent, PF 2 completed Loree Lee MD [address] [place] [address], [phone], [facility] 04/18/2022 09:40:16 COVID-19, mRNA, LNP-S, PF, 30 mcg/0.3 mL dose 1 completed Not Available [facility] 12/19/2021 21:27:39 COVID-19, mRNA, LNP-S, PF, 30 mcg/0.3 mL dose 1 completed Not Available [facility] 12/19/2021 21:27:39 Influenza, high-dose, trivalent, PF 4 completed Loree Lee MD [address] [place] [address], [phone], [facility] 04/27/2024 19:48:44 COVID-19, mRNA, LNP-S, PF, 30 mcg/0.3 mL dose 1 completed ALLNY Payne null, [facility] 03/21/2023 14:27:34 zoster recombinant 3 [facility] 12:08:58 influenza, unspecified formulation 3 [facility]23 11:11:18 Influenza, adjuvanted, quadrivalent, PF 3 [facility] 11:11:18 Influenza, split virus, trivalent, preservative 9 [facility] 11:11:18 Past Encounters Encounter ID Performer Location Encounter Start Date Encounter Closed Date Diagnosis/Indication Diagnosis SNOMED-CT Code Diagnosis ICD10 Code Diagnosis Note [id number] Loree Lee MD , [facility], [address] [place] [address] 12/21/2024 09:25:49 12/21/2024 10:38:43 Postmenopausal state 10339145 Z78.0 Patient declines 12/21/24 VR Immunization due 4807400 08 Z23 Pneumo: aware at pharmacy, Reminded 12/18/24 VR Shingrix: [facility] 04/25/23, Reminded 12/18/24 VR Influenza: [facility] 04/25/23/ Medication declined [id number] Z28.21 Shingles: Patient declines 12/21/24 VRPneumo: Patient declines 12/21/24 VR Essential hypertension 03951798 I10 HTN - NOT at goal of less than 130/80 per AHA guidelines .Hypertens ion managed with losartan, causing sleep disturbanc es.Explain ed importance of blood pressure control to prevent complicati ons, especially with existing heart failure and COPD.- Discontinu e losartan.- Prescribe olmesartan 10 mg daily.- Instruct to take olmesartan in the morning.- Arrange follow-up in 5 weeks to assess response.C ontinue low salt diet of less than 1500 mg of sodium per day. The [place] [employer] n (AHA) recommends 30 minutes of moderate physical activity 5 days a week.A Mediterran maribell type of diet and a plant based diet is recommende d, review the website: Oldwayspt. org. The DASH diet is also recommende d.* Review this website: https://tavo sanchez[employer]/al l-about-go od-and-jaycob ap for healthy inexpensiv e meals.* For any changes in your medication regimen, please call in the interim if with any intoleranc e to the medication . Moderate protein-calorie malnutrition (weight for age 60-74 percent of standard) 500707310 E44.0 stable weight at 83 lbs. Open wound of chest wall [id number] S21.101D Persistent wound with fluid collection , unresolved despite imaging. Advised against peroxide use to prevent delayed healing. - was referred to thoracic surgery for evaluation and management by her cardiologi st - Advise against peroxide for wound cleaning. - Instruct to use regular showering for wound cleaning. - Encourage follow-up with Dr. Troncoso's office. Systolic h eart failure 162243264 I50.[address] Mata - well controlled with meds Chronic ob structive pulmonary disease 51656679 J44.9 See HPI for detailed history GOLD air flow assessment grade mMCR dyspnea scale grade IAM assessment tool group E, Rx recommende d: LAMA (ex, Spiriva) and LABA (ex. Serevant) or LAMA-LABA combinatio n (ex, Anoro Ellipta), add ICS if blood eosinophil s over 300 or concomitan t asthma (ex, Trelegy) COPD is Stable, no change in symptoms, stable or improved exercise tolerance, no flareups Need to adjust/isma nge/add medication no/COPD controlled If yes, change in medication ____ Risk factor modificati on/further recommenda tions:Smok ing cessationA dd oxygen therapy yesStart/I ncrease exerciseUp date vaccinatio n yesPulmona ry rehab Imaging needed Repeat PFT Rescue inhalers, ___ , are to be used as needed only, for shortness of breath, persistent coughing or wheezing.M aintenance inhalers, ___ , are to be used every day as instructed . Nonischemi c congestive cardiomyopathy [id number] [address] Mata - well controlled with medsparkin rosie zaidi completed today, dx: COPD and non ischemic CM Prediabetes 195619724 R7 3.03 A1c indicates worsening prediabeti c state, potentiall y influenced by diet and weight gain.- Monitor blood glucose levels and dietary habits.- Encourage healthy eating and weight management . Goals Section Goal Description Progress Status Start Date LastModified by Organization Details LastModified Time Fluid Balance Management Exhibits no signs or symptoms related to fluid imbalance NoChange active 2022 Anika Gibbs RN Information not available 03/15/2023 18:16:11 Diet Adherence Follows prescribed or recommended diet NoChange active 2022 Anika Gibbs RN Information not available 03/15/2023 18:16:11 Blood Pressure Maintains blood pressure goal as defined by care team Regressing active 2022 Anika Gibbs RN Information not available 12/18/2023 21:01:30 Health Concerns Section Related Observation LastModified by Organization Detai ls LastModified Time None Recorded Concern Status LastModified by Organization Details LastModified Time Congestive heart failure Active Anika Gibbs RN Not Available 03/15/2023 18:09:29 Benign essential hypertension Active Anika Gibbs RN Not Available 03/15/2023 18:13:25 Payers Encounter Date Sequence Insurance Name Policy Number Policy Goldman Covered Member ID Goldman Member ID Guarantor Name 12/21/2024 2 [facility] [employer] Donn Anais Kaylyn Chambers [id number] Nelda Patiño 12/21/2024 1 [place] [employer] Nelda Patiño [id number] Nelda Patiño Notes Date Note Type Note Provider Name and Address Organization Details Recorded Time 12/21/2024 text/html Patient informed and consents to use of AI assisted recording to improve documentation of visit.Word substitution may have occurred and may have gone unnoticed and uncorrected. The patient presents with a persistent breast infection and fluid leakage.pt here for her HTN med mgt visitShe has been experiencing a persistent breast infection since October, characterized by fluid leakage that requires constant Band-Aid application. It is a persistent open wound at the site of a pacemaker insertion, which has not healed since the procedure. She cleans it with peroxide, but it has not improved.Despite imaging studies, including x-rays and a CT scan, the issue remains unresolved. A piece of metal was visible on the CT scan. The infection causes significant irritation due to the Band-Aid use.She is currently taking losartan 75 mg for high blood pressure but experiences sleep disturbances, leading her to sleep only 2-2.5 hours at a time. She has not been taking the full prescribed dose of 100 mg due to these side effects. Her blood pressure has been consistently high, and she has a history of heart failure.She has a history of COPD and reports no new lung issues, although she experiences occasional cravings for cigarettes after meals despite quitting smoking in 2014. She has not used oxygen recently and notes improvement with Trelegy.Her from cancer on November 11, which has led to increased eating and weight gain. She reports being prediabetic. She lives alone with her dog but receives support from her sons.She has declined bone density testing and osteoporosis medication despite a history of osteopenia.HbA1c: 5.7% (Prediabetic)RADIOL OGYCT of the chest (11/28/2024): No acute changes. Minimal change from 2018. Pacemaker is in place. Lungs are stable.Ultrasound of the breast (October 2024): Persistent fluid collection extending from the skin, extending 12 cm from the nipple. Loree Lee MD [address] [place] [address], [phone], [facility] 12/21/2024 21:13:36 OBGyn Episode No OBEpisode recorded.
== END 2024-12-23 11:31 | disposition home or self-care (01) ==
LOC: HO.HCS 10:28
PROVIDERS: PCP Family Medicine; Visit Provider Internal Medicine Cardiovascular Disease
DX: I50.9 Heart failure, unspecified (principal); L98.8 Other specified disorders of the skin and subcutaneous tissue
CPT/HCPCS: 99214; G2211

== ENCOUNTER → 2024-12-23 10:28 | Outpatient (BNVA) | payer MEDICARE, BC, SELFPAY | PROVIDERS: PCP Family Medicine; Visit Provider Internal Medicine Cardiovascular Disease | DX: I50.9 Heart failure, unspecified (principal); L98.8 Other specified disorders of the skin and subcutaneous tissue | CPT/HCPCS: 99212 ==

== ENCOUNTER → 2025-03-29 23:59 | Outpatient (BNV) | payer MEDICARE, BC, SELFPAY ==
--- NOTE | 2025-04-25 19:46 | A.OFFVIS_ITS ---
Intake Visit Reasons: Remote Device Check - [employer] Allergies No Known Allergies Allergy (Verified 06/19/23 11:09) [facility] Medical History Hyperlipidemia Hypothyroidism Personal history of nicotine dependence PVC (premature ventricular contraction) Essential hypertension CAD (coronary artery disease) Cardiomyopathy CHF (congestive heart failure) ICD (implantable cardioverter-defibrillator) in place (~2017) Surgical History History of pubovaginal sling History of carotid endarterectomy History of implantable cardiac defibrillator (ICD) History of hernia repair History of appendectomy History of tonsillectomy History of heart artery stent Family History Father CVD (cardiovascular disease) Obesity Mother CVD (cardiovascular disease) Diabetes Social History Alcohol intake: current Alcohol intake frequency: 0-2 drinks per day Alcohol type: wine Patient Tobacco Use Status: Former Tobacco user Tobacco use type: Cigarette Years Smoked: 51 +/- Office Procedures Cardiac Device Check Cardiac Device Check Details: PPM No new alerts Good battery. [id number] Cardiac Device Interrogation, pacemaker Procedure code (CPT) selection complete Assessment & Plan Assessment & Plan (1) CHF (congestive heart failure): Code(s): I50.9 - Heart failure, unspecified Category: Medical Plan Coding Level of Care Code Procedure Only Diagnoses CHF (congestive heart failure) I50.9 CPT Codes Cardiac Device Check - Cardiac Device 12: [id number] Cardiac Device Interrogation, pacemaker ([id number])
== END ==
PROVIDERS: PCP Family Medicine; Visit Provider Internal Medicine Cardiovascular Disease
DX: I50.9 Heart failure, unspecified (principal); Z95.0 Presence of cardiac pacemaker
CPT/HCPCS: 93294